=== PATIENT | female | born 1955 | race Caucasian/White ===

== ENCOUNTER 2018-01-12 12:37 | Outpatient (REF) | payer MEDICAID, SELFPAY ==
--- NOTE | 2018-01-12 11:45 | SKI_PTH ---
PATIENT: Brielle Mcduffie LOC: [facility] U#:[id number] AGE/SX: 62/F ROOM: RE01/12/[address]: Nathalia Blair MD : [id number] BED: DIS: 01/12/2018 SPEC #: [id number] RECD: 01/12/18 12:57 STATUS: TATUM REAnisha #: [id number] BIANCA: 01/12/18 11:[address]: Nathalia Blair DEPT: Surgical Specimen RECD BY: Iqra Gann ENTERED: 01/12/18 12:58 SP TYPE: LUIS F YANG DR: Stefany Moreno Tissues: 1 - SKIN BIOPSY(SHAVE/PUNCH) Procedures: SKIN LEVEL 4 Comments: [id number]
== END 2018-01-12 12:57 ==
LOC: LBN 12:37
PROVIDERS: PCP Physician Assistant Medical; Visit Provider Surgery
DX: L82.1 Other seborrheic keratosis (principal); Z85.828 Personal history of other malignant neoplasm of skin
CPT/HCPCS: 88305

== ENCOUNTER 2018-08-27 12:35 | Outpatient (REF) | payer MEDICAID, SELFPAY ==
[2018-08-27 21:45] LABS: Abs Immature Grans 0.02 k/cumm (0.0-0.09); Absolute Basophil Count 0.05 k/cumm (0.0-0.2); Absolute Eosinophil Count 0.17 k/cumm (0.0-0.7); Absolute Lymphocyte Count 2.13 k/cumm (1.2-3.4); Absolute Monocyte Count 0.44 k/cumm (0.11-0.7); Absolute Neutrophil Count 4.85 k/cumm (1.2-6.7); Basophils % 0.7; Eosinophils % 2.2; HCT 41.3 % (36.0-46.0); HGB 13.7 g/dL (12.0-15.5); Immature Grans % 0.3; Lymphocytes % 27.8; Mean Corp. HGB Concentration 33.2 g/dL (32.0-36.0); Mean Corpuscular Hemoglobin 31.2 pg (27.0-33.0); Mean Corpuscular Volume 94.1 fL (80-95); Mean Platelet Volume 10.3 fL (8.0-11.0); Monocytes % 5.7; Neutrophils % 63.3; Platelet Count 277 x1000/uL (130-400); RBC 4.39 m/cumm (4.00-5.20); RBC Distribution Width 12.6 % (11.7-14.6); White Blood Cell Count 7.66 k/cumm (4.4-10.8)
[2018-08-27 21:52] LABS: ALT 18 U/L (12-78); AST 12 U/L (15-37); Albumin 4.7 g/dL (3.4-5.0); Alkaline Phosphatase 62 U/L (46-116); Anion Gap 11.4 mmol/L (3-11); BUN 12 mg/dL (7-18); Bilirubin, Total 0.2 mg/dL (0.2-1.0); CO2 27.6 mmol/L (21.0-32.0); CREATININE 0.61 mg/dL (0.55-1.02); Calcium 9.9 mg/dL (8.5-10.1); Chloride 105 mmol/L (98-107); Glucose 90 mg/dL (70-100); Potassium 4.3 mmol/L (3.5-5.1); Sodium 144 mmol/L (136-145); Total Protein 7.6 g/dL (6.4-8.2)
[2018-08-29 11:28] LABS: Lyme Ab w Rflx to Lyme Confirm Negative
[2018-08-30 00:53] LABS: Anaplasma phagocytophilum Negative (Negative); B. miyamotoi PCR Negative (Negative); Babesia divergens/MO-1 Negative (Negative); Babesia duncani Negative (Negative); Babesia microti Negative (Negative); Ehrlichia chaffeensis Negative (Negative); Ehrlichia ewingii/canis Negative (Negative); Ehrlichia muris eauclairensis Negative (Negative)
[2018-08-30 06:54] LABS: Vitamin D 25 Total 21.9 ng/ml (30-100)
== END 2018-08-27 12:55 ==
LOC: NCHCN 12:35
PROVIDERS: PCP Physician Assistant Medical; Visit Provider Physician Assistant Medical
DX: G89.4 Chronic pain syndrome (principal); E55.9 Vitamin D deficiency, unspecified
CPT/HCPCS: 80053; 82306; 87798; 85025; 86618

== ENCOUNTER 2018-09-24 07:50 | Outpatient (CLI) | payer MEDICAID, SELFPAY ==
[2018-09-24 09:14] LABS: Iron 109 ug/dL (50-175); Total Iron Binding Capacity 328 ug/dL (250-450); Transferrin Sat 33 % (15-50)
[2018-09-24 09:42] LABS: Vitamin D 25 Total 21.4 ng/ml (30-100)
[2018-09-24 09:43] LABS: Ferritin 164 ng/mL (8-388); Folate 13.1 ng/mL (8.6-20.0); Magnesium 2.2 mg/dL (1.8-2.4); TSH 0.75 uIU/mL (0.36-3.74); Vitamin B12 324 pg/mL (193-986)
== END 2018-09-24 08:10 ==
PROVIDERS: PCP Physician Assistant Medical; Visit Provider Physical Medicine & Rehabilitation
DX: M79.10 Myalgia, unspecified site (principal); R53.83 Other fatigue; E61.1 Iron deficiency; E55.9 Vitamin D deficiency, unspecified; G47.9 Sleep disorder, unspecified; M89.9 Disorder of bone, unspecified
CPT/HCPCS: 36415; 82306; 82607; 82728; 82746; 83540; 83550; 83735; 84443

== ENCOUNTER 2018-11-01 09:05 | Outpatient (CLI) | payer MEDICAID, SELFPAY ==
[2018-11-01 10:40] LABS: Vitamin D 25 Total 30.5 ng/ml (30-100)
== END 2018-11-01 09:25 ==
PROVIDERS: PCP Physician Assistant Medical; Visit Provider Physical Medicine & Rehabilitation
DX: E55.9 Vitamin D deficiency, unspecified (principal); M89.9 Disorder of bone, unspecified
CPT/HCPCS: 36415; 82306

== ENCOUNTER 2019-04-26 15:10 | Outpatient (REF) | payer MEDICAID, SELFPAY ==
[2019-04-26 19:01] LABS: Abs Immature Grans 0.03 k/cumm (0.0-0.09); Absolute Basophil Count 0.02 k/cumm (0.0-0.2); Absolute Eosinophil Count 0.06 k/cumm (0.0-0.7); Absolute Monocyte Count 0.71 k/cumm (0.11-0.7); Absolute Neutrophil Count 7.76 k/cumm (1.2-6.7); Basophils % 0.2; Eosinophils % 0.6; HCT 43.9 % (36.0-46.0); HGB 14.5 g/dL (12.0-15.5); Immature Grans % 0.3 %; Lymphocytes % 18.9; Mean Corpuscular Volume 90.9 fL (80-95); Mean Platelet Volume 10.3 fL (8.0-11.0); Monocytes % 6.7; Neutrophils % 73.3; Platelet Count 340 x1000/uL (130-400); RBC 4.83 m/cumm (4.00-5.20); RBC Distribution Width 12.6 % (11.7-14.6); White Blood Cell Count 10.58 k/cumm (4.4-10.8)
[2019-04-26 19:23] LABS: ALT 16 U/L (14-59); AST 16 U/L (15-37); Albumin 4.4 g/dL (3.4-5.0); Alkaline Phosphatase 58 U/L (46-116); Amylase 89 U/L (25-115); Anion Gap 11.3 mmol/L (3-11); BUN 11 mg/dL (7-18); Bilirubin, Total 0.4 mg/dL (0.2-1.0); CO2 25.7 mmol/L (21.0-32.0); CREATININE 0.75 mg/dL (0.55-1.02); Calcium 9.3 mg/dL (8.5-10.1); Chloride 104 mmol/L (98-107); Glucose 103 mg/dL (74-106); Lipase 429 U/L (73-393); Potassium 3.9 mmol/L (3.5-5.1); Sodium 141 mmol/L (136-145); Total Protein 7.1 g/dL (6.4-8.2)
== END 2019-04-26 15:30 ==
LOC: NCHCN 15:10
PROVIDERS: PCP Physician Assistant Medical; Visit Provider Physician Assistant Medical
DX: R10.9 Unspecified abdominal pain (principal)
CPT/HCPCS: 80053; 83690; 82150; 85025

== ENCOUNTER 2019-04-29 00:42 | Outpatient (CLI) | payer MEDICAID, SELFPAY ==
--- NOTE | 2019-04-29 | DI.US_ITS ---
TECHNIQUE: Ultrasound abdomen performed using standard protocol. COMPARISON: MRI - LUMBAR SPINE WO CONTRAST from 08/10/2012 FINDINGS: LIVER: Normal. Hepatopedal flow in the Portal Vein. GALLBLADDER: No evidence of cholelithiasis. No evidence of wall thickening. No pericholecystic fluid identified. KIDNEYS: Kidneys are symmetric in size. No evidence of renal calculi. No evidence of hydronephrosis. 1.5 x 1.8 x 1.4 cm stable simple left renal cyst. This was present on the MRI of the lumbar spine fr om 08/10/2012. BILIARY SYSTEM: Common bile duct measures 2 mm. No intrahepatic biliary ductal dilation. FOSS'S SIGN: Negative. PANCREAS: Normal where visualized. SPLEEN: Not enlarged. ABDOMINAL AORTA AND IVC: Visualized portions normal caliber. ASCITES: None seen. IMPRESSION: Normal sonographic appearance of the upper abdomen. DATA REPOSITORY:
== END 2019-04-29 01:02 ==
PROVIDERS: PCP Physician Assistant Medical; Visit Provider Physician Assistant Medical
DX: N28.1 Cyst of kidney, acquired (principal); R10.9 Unspecified abdominal pain
CPT/HCPCS: 76700

== ENCOUNTER 2019-05-17 19:13 | Outpatient (REF) | payer MEDICAID, SELFPAY ==
[2019-05-17 18:51] LABS: Amylase 54 U/L (25-115); Lipase 130 U/L (73-393)
== END 2019-05-17 19:33 ==
LOC: NCHCN 19:13
PROVIDERS: PCP Physician Assistant Medical; Visit Provider Physician Assistant Medical
DX: R74.8 Abnormal levels of other serum enzymes (principal)
CPT/HCPCS: 83690; 82150

== ENCOUNTER 2019-08-07 21:20 | Outpatient (REF) | payer MEDICAID, SELFPAY ==
[2019-08-07 20:09] LABS: TSH (W/Ref FT4) 1.03 uIU/mL (0.36-3.74)
== END 2019-08-07 21:40 ==
LOC: NCHCN 21:20
PROVIDERS: PCP Physician Assistant Medical; Visit Provider Physician Assistant Medical
DX: N95.1 Menopausal and female climacteric states (principal)
CPT/HCPCS: 84443

== ENCOUNTER 2019-10-04 15:50 | Outpatient (REF) | payer MEDICAID, SELFPAY ==
[2019-10-08 06:55] LABS: SARS-CoV-2 RNA Undetected (Undetected); SARS-CoV-2 Specimen Source Nasopharynx
== END 2019-10-04 16:10 ==
LOC: NCHCN 15:50
PROVIDERS: PCP Physician Assistant Medical; Visit Provider Nurse Practitioner Family
DX: Z20.828 Contact with and (suspected) exposure to other viral communicable diseases (principal)
CPT/HCPCS: U0003

== ENCOUNTER 2019-10-11 12:25 | Outpatient (REF) | payer MEDICAID, SELFPAY ==
[2019-10-11 19:22] LABS: Calculated LDL 134 mg/dL (<100); Cholesterol 260 mg/dL (<200); HDL Cholesterol 109 mg/dL (40-60); Lipase 83 U/L (73-393); Triglyceride 89 mg/dL (<150)
[2019-10-11 19:31] LABS: Amylase 38 U/L (25-115)
== END 2019-10-11 12:45 ==
LOC: NCHCN 12:25
PROVIDERS: PCP Physician Assistant Medical; Visit Provider Physician Assistant Medical
DX: R07.9 Chest pain, unspecified (principal); Z13.220 Encounter for screening for lipoid disorders
CPT/HCPCS: 80061; 83690; 82150

== ENCOUNTER 2019-12-09 13:10 | Outpatient (REF) | payer MEDICAID, SELFPAY ==
[2019-12-09 19:18] LABS: Abs Immature Grans 0.02 10^3/uL (0.0-0.06); Absolute Basophil Count 0.03 10^3/uL (0.0-0.2); Absolute Eosinophil Count 0.15 10^3/uL (0.0-0.7); Absolute Lymphocyte Count 2.16 10^3/uL (1.2-3.4); Absolute Monocyte Count 0.55 10^3/uL (0.1-0.8); Absolute Neutrophil Count 5.16 10^3/uL (1.2-6.7); Basophils % 0.4; Eosinophils % 1.9; HCT 41.1 % (36.0-46.0); HGB 13.5 g/dL (11.2-15.7); Immature Grans % 0.2; Lymphocytes % 26.8; MCH 31.4 pg (27.0-33.0); MCHC 32.8 % (32.0-36.0); MCV 95.6 fL (80-95); MPV 10.7 fL (8.0-11.0); Monocytes % 6.8; Neutrophils % 63.9; Nucleated RBC 0 %; Platelet Count 314 10^3/uL (130-400); RDW-SD 42.1 fL; WBC 8.07 10^3/uL (4.4-10.8)
[2019-12-09 19:32] LABS: ALT 17 U/L (14-59); AST 15 U/L (15-37); Albumin 4.4 g/dL (3.4-5.0); Alkaline Phosphatase 59 U/L (46-116); Amylase 47 U/L (25-115); Anion Gap 8.7 mmol/L (3-11); BUN 11 mg/dL (7-18); Bilirubin, Total 0.2 mg/dL (0.2-1.0); CO2 26.3 mmol/L (21.0-32.0); CREATININE 0.67 mg/dL (0.55-1.02); Calcium 9.2 mg/dL (8.5-10.1); Chloride 103 mmol/L (98-107); Glucose 86 mg/dL (74-106); Lipase 126 U/L (73-393); Potassium 4.2 mmol/L (3.5-5.1); Sodium 138 mmol/L (136-145); Total Protein 7.3 g/dL (6.4-8.2)
== END 2019-12-09 13:30 ==
LOC: NCHCN 13:10
PROVIDERS: PCP Physician Assistant Medical; Visit Provider Physician Assistant Medical
DX: R10.9 Unspecified abdominal pain (principal)
CPT/HCPCS: 80053; 83690; 82150; 85025

== ENCOUNTER 2019-12-12 01:14 | Outpatient (CLI) | payer MEDICAID, SELFPAY ==
--- NOTE | 2019-12-12 12:03 | DI.CT_ITS ---
EXAM: CT ABDOMEN PELVIS W INDICATION: ABD PAIN, R10.9. COMPARISON: No exams were available for comparison TECHNIQUE: FINDINGS: CT examination of the abdomen and pelvis was performed with a bolus infusion of 100 cc of Omnipaque 3 50. Images obtained through the lung bases are unremarkable. The liver is unremarkable in appearance except for a tiny right lobe cyst. Gallbladder and bile ducts are CT normal. Pancreas appears normal. Spleen is unremarkable in appearance. Adrenals appear normal. The kidneys are unremarkable with no evidence of hydronephrosis, nephrolithiasis, or renal mass excep t for an incidental left cyst.. Urinary bladder unremarkable. Abdominal aorta is of normal diameter and no major vascular abnormality is seen. No abdominal wall hernia. No abdominal or pelvic adenopathy. PEST TECHNICIAN structures appear intact. Appendix is not specifically visualized but there is no evidence of appendicitis.. No evidence of di verticulitis or bowel obstruction. IMPRESSION: Negative CT examination of the abdomen and pelvis. RADIATION DOSE DELIVERED: 641.72mGy.cm Total DLP 641.72mGy.cm Total DLP
[2019-12-12] MEDS: Omnipaque 350 MG/ML 100 ML BTL IJ (12:10)
[2019-12-12] MEDS: Normal Saline - Diluent 50 ML VIAL IV (12:10)
== END 2019-12-12 01:34 ==
PROVIDERS: PCP Physician Assistant Medical; Visit Provider Physician Assistant Medical
DX: R10.9 Unspecified abdominal pain (principal)
CPT/HCPCS: 74177; J3490

== ENCOUNTER 2020-01-30 10:15 | Emergency (ER) | payer MEDICAID, SELFPAY ==
[2020-01-30] VITALS (16 sets, daily range): BP systolic 86–168; BP diastolic 46–86; PULSE 72–86; RESP 1–20; TEMP 36.4–37.1; O2SAT 93–100
--- NOTE | 2020-01-30 10:15 | RT.EKG_ITS ---
APPROVED REPORT Exam: Resting ECG Patient Location: E HR:70 bpm ECG Measurements Heart Rate 70 AXIS PA 141 P 72 QRSd 105 QRS 93 QT 395 T 16 QTc 427 Conclusion Sinus rhythm...normal P axis, V-rate 60- 99 Right axis deviation...QRS axis ( 91,269) Physician: Rate 70, intervals normal, sinus rhythm, no significant ST elevation or depressions, no de lta wave, no evidence of STEMI
--- NOTE | 2020-01-30 10:34 | DI.CT_ITS ---
EXAM: CT CHEST PE CTA CLINICAL HISTORY: sob, cough, eval PE vs covid. TECHNIQUE: Imaging Protocol: CT angiography of the chest was performed using pulmonary embolus rigoberto col. Multi planar reconstructions were performed. CONTRAST MATERIAL: Intravenous: Omnipaque 350 Contrast volume: 100 cc COMPARISON: CT CT ABDOMEN PELVIS W from 12/12/2019 FINDINGS: CHEST: PULMONARY ARTERIES: There are no intraluminal filling defects to suggest acute pulmonary emboli. LUNGS: There are no infiltrates nor evidence of pulmonary infarction.. There are no pleural effusion s. MEDIASTINUM: There is no hilar nor mediastinal adenopathy. CARDIAC: Heart size is normal. There is no pericardial effusion.Caliber of the thoracic aorta is wit hin normal limits. There is no evidence of shift of the interventricular septum. OSSEOUS: No significant osseous lesions.. PARTIALLY VISUALIZED UPPERMOST ABDOMEN: Small nodule left adrenal gland probably incidental adenoma. Right adrenal gland unremarkable. Lower most image of this study includes part of the pancreas ther e is possible suggestion of a abnormality in the pancreatic head region is not possible to assess on this study. IMPRESSION: 1. No evidence of acute pulmonary emboli. No evidence of pulmonary infarction.No pleural effusions. 2. No intrathoracic adenopathy. No concerning pulmonary nodules. 3. Possible pancreatic head abnormality is only partially included in the field of view. Recommend f ollow-up starting with ultrasound of the pancreas. 4. Small 1 centimeter nodule left adrenal gland which is probably an incidental adenoma. RADIATION DOSE DELIVERED: 263.37mGy.cm Total DLP DATA REPOSITORY: All CT scans at this facility are submitted to the National Radiology Data Registry (NRDR) Dose Index Registry (DIR) with the [employer] (ACR). RADIATION OPTIMIZATION: All CT scans at this facility use at least one of these dose optimization te chniques: automated exposure control; mA and/or kV adjustment per patient size (includes targeted exa ms where dose is matched to clinical indication); or iterative reconstruction.
[2020-01-30 10:45] LABS: Lactate 1.5 mmol/L (0.6-1.4)
[2020-01-30 10:53] LABS: Abs Immature Grans 0.04 10^3/uL (0.0-0.06); Absolute Basophil Count 0.06 10^3/uL (0.0-0.2); Absolute Lymphocyte Count 1.65 10^3/uL (1.2-3.4); Absolute Monocyte Count 0.64 10^3/uL (0.1-0.8); Absolute Neutrophil Count 8.86 10^3/uL (1.2-6.7); Basophils % 0.5; Eosinophils % 3.4; HCT 43.8 % (36.0-46.0); HGB 14.2 g/dL (11.2-15.7); Immature Grans % 0.3; Lymphocytes % 14.2; MCHC 32.4 % (32.0-36.0); MCV 95.6 fL (80-95); MPV 10.1 fL (8.0-11.0); Monocytes % 5.5; Neutrophils % 76.1; Nucleated RBC 0 %; Platelet Count 332 10^3/uL (130-400); RBC 4.58 10^6/uL (3.93-5.22); RDW 12.5 % (11.7-14.6); RDW-SD 44.2 fL; WBC 11.64 10^3/uL (4.4-10.8)
[2020-01-30] MEDS: Normal Saline 500 ML IV (10:54)
--- NOTE | 2020-01-30 11:03 | ED.GENADUL_ITS ---
Discharge Plan Disposition Patient Disposition: HOME Condition: Good Discharge Details Clinical Impression: Asthma exacerbation, SOB (shortness of breath) Primary Care Provider: Stefany Moreno ED Provider: Duong Zamora Home Meds and New Rx's Prescriptions: New ipratropium-albuterol 0.5 mg-3 mg(2.5 mg base)/3 mL solution for nebulization 3 ml IH Q6H Qty: 90 RF: 0 prednisone 50 MG tablet 50 mg PO DAILY Qty: 5 RF: 0 Continued albuterol sulfate 2.5 mg /3 mL (0.083 %) solution for nebulization 1.25 mg IH Q4H PRNRF: 0 cholecalciferol (vitamin D3) 1,000 unit capsule 2,000 unit PO DAILY RF: 0 Spiriva with HandiHaler 18 mcg capsule, w/inhalation device 1 cap IH DAILY RF: 0 magnesium 250 mg tablet 250 mg PO DAILY RF: 0 Narcan 4 mg/actuation spray,non-aerosol 1 spray ANNAMARIA ONCE PRNRF: 0 Calcium PO DAILY RF: 0 ZOLOFT 100 MG tablet 2 tab PO DAILY RF: 0 VALIUM 5 MG tablet 5 mg PO HS Qty: 30 RF: 0 trazodone 50 MG tablet 100 mg PO DAILY RF: 0 hydrocodone-acetaminophen [Bellaire] 1 EACH tablet 1 ea PO DAILY Qty: 4 RF: 0 alprazolam 1 mg tablet 0.5 - 1 mg PO BID PRNRF: 0 docusate sodium [Colace] 100 mg Capsule 100 mg PO BID RF: 0 Discharge Instructions Instructions: Asthma (ED) Additional Instructions: At this time your serial heart markers were normal, your lung and oxygen levels have all stayed stable and within excellent parameters. Your imaging shows no signs of blood clots pneumonia or other abnormalities. Your influenza test is negative. It will take 2 to 3 days for your Covid test to return. Please contact the hospital if you have not been contacted by us by then. At this time your symptoms are consistent with an asthma exacerbation. Please take the nebulizer treatments every 4-6 hours for the next 2 to 3 days as needed. Please take them 50 mg of prednisone daily starting tomorrow for the next 5 days. Continue to use your pulse oximeter, if you notice that the number becomes less than 91% for an extended period of time please contact the ER and/or return immediately. If you notice any worsening of your symptoms, or any new symptoms such as vomiting, diarrhea, fever, chills, shortness of breath, chest pain, numbness, weakness, or fainting , please return immediately to the emergency department for reevaluation. Please follow up with your primary care provider as soon as possible for reassessment and reevaluation. As always, it was a pleasure participating in your medical care today. Referrals: Stefany Moreno PA [Primary Care Provider] - Medical Decision Making 64-year-old female with fibromyalgia, reactive airway disease, distant history of tobacco abuse who currently vapes, presents today for evaluation of shortness of breath. Patient states for the last two or 3 days she has felt slightly more short of breath, she has been taking her Spiriva inhalers as directed, and has taken some additional puffs, initially these were helping however last night she woke up extremely short of breath, and has continued through to this morning. Her symptoms now are not relieved by her inhaler. She denies any new exposures to smoke, or atypical inhalants. She denies any fever, chills, chest pain, tearing or ripping sensation, chest heaviness, chest tightness. She does state that she just feels like she cannot get a deep breath at all. She denies any pleuritic chest pain in particular though. She denies any history of cardiac disease. She denies any exogenous estrogen, recent long trips or surgeries or procedures. She denies any knowledge of potential exposure to Covid or any travel. No other complaints at this time. No other modifying factors. Physical exam is notably unremarkable, no wheezes or rhonchi, no calf tenderness over the patient does have notable subjective shortness of breath and difficulty with inhalation. Lung sounds are slightly diminished throughout, but that the only atypical component. Differential is broad, but includes Covid, PE, COPD exacerbation. We will give three duo nebs, monitor closely, CT imaging to rule out PE, reassess. 3:18 PM Laboratory work-up is returned, notably unremarkable, minimal white count of 11.6 minimal left shift, no bandemia, D-dimer negative, VBG normal, lactate only 1.5, no indication for repeat level, electrolytes normal, initial and subsequent delta troponin both normal, CRP unremarkable, lipase procalcitonin both normal, influenza test normal. CTA shows no evidence of PE, pneumonia, dissection, aneurysm, or atelectasis. There is an incidental left adrenal adenoma, unremarkable otherwise. I did discuss with radiology the described finding of a possible pancreatic head abnormality, but he feels that it is most likely secondary to incomplete visualization by the CAT scan, he thinks it may even be a loop of bowel. Repeat exam shows no pancreatic head tenderness, lipase is normal, albumin normal. Her pain is not in the area at all. No indication for repeat emergent CT scan or emergent ultrasound. Did recommend follow-up on an outpatient basis with her PCP. Patient was given a small dose of anxiolytic, as well as a repeat nebulizer treatment and she felt notably better after this. This time she feels stable and ready to go home. Patient will be given prednisone and DuoNeb prescription for home use. Discussed red flags which return. She has nebulizer at home for use. I have extensively reviewed the treatment plan and discharge instructions with the patient and their family. I have addressed all patient concerns at this time. The patient and family was made aware of what symptoms to monitor for that would warrant a return to the emergency department. Discussed the plan with the patient and family, they demonstrate verbal understanding and agreement with our assessment and plan at this time. Signs and symptoms are clinically inconsistent with SC or acute life-threatening etiology at this time. I did have a long discussion with her recommending cessation of vaping. EKG 10: 32 Rate 70, intervals normal, sinus rhythm, no significant ST elevation or depressions, no delta wave, no evidence of STEMI. FINDINGS: CHEST: PULMONARY ARTERIES: There are no intraluminal filling defects to suggest acute pulmonary emboli. LUNGS: There are no infiltrates nor evidence of pulmonary infarction.. There are no pleural effusions. MEDIASTINUM: There is no hilar nor mediastinal adenopathy. CARDIAC: Heart size is normal. There is no pericardial effusion.Caliber of the thoracic aorta is within normal limits. There is no evidence of shift of the interventricular septum. OSSEOUS: No significant osseous lesions.. PARTIALLY VISUALIZED UPPERMOST ABDOMEN: Small nodule left adrenal gland probably incidental adenoma. Right adrenal gland unremarkable. Lower most image of this study includes part of the pancreas there is possible suggestion of a abnormality in the pancreatic head region is not possible to assess on this study. IMPRESSION: 1. No evidence of acute pulmonary emboli. No evidence of pulmonary infarction.No pleural effusions. 2. No intrathoracic adenopathy. No concerning pulmonary nodules. 3. Possible pancreatic head abnormality is only partially included in the field of view. Recommend follow-up starting with ultrasound of the pancreas. 4. Small 1 centimeter nodule left adrenal gland which is probably an incidental adenoma. HPI General Date/Time Provider Initiated Documentation: 01/30/20 10:18 . HPI Narrative: 64-year-old female with fibromyalgia, reactive airway disease, distant history of tobacco abuse who currently vapes, presents today for evaluation of shortness of breath. Patient states for the last two or 3 days she has felt slightly more short of breath, she has been taking her Spiriva inhalers as directed, and has taken some additional puffs, initially these were helping however last night she woke up extremely short of breath, and has continued through to this morning. Her symptoms now are not relieved by her inhaler. She denies any new exposures to smoke, or atypical inhalants. She denies any fever, chills, chest pain, tearing or ripping sensation, chest heaviness, chest tightness. She does state that she just feels like she cannot get a deep breath at all. She denies any pleuritic chest pain in particular though. She denies any history of cardiac disease. She denies any exogenous estrogen, recent long trips or surgeries or procedures. She denies any knowledge of potential exposure to Covid or any travel. No other complaints at this time. No other modifying factors. Related Data Home Medications Medication Instructions Recorded Confirmed Zoloft 2 tab PO DAILY 10/04/10 01/30/20 Valium 5 mg PO HS #30 11/26/10 01/30/20 Calcium PO DAILY 06/29/11 01/12/18 hydrocodone-acetaminophen [Bellaire] 1 ea PO DAILY #4 03/13/13 01/30/20 trazodone 100 mg PO DAILY tab-cap 03/13/13 01/30/20 albuterol sulfate 1.25 mg IH Q4H PRN 12/12/17 01/30/20 cholecalciferol (vitamin D3) 25 2,000 unit PO DAILY 12/12/17 01/30/20 mcg (1,000 unit) capsule magnesium 250 mg tablet 250 mg PO DAILY 12/12/17 01/30/20 naloxone 4 mg/actuation nasal spray 1 spray ANNAMARIA ONCE PRN 12/12/17 01/30/20 tiotropium bromide 18 mcg capsule 1 cap IH DAILY 12/12/17 01/30/20 with inhalation device alprazolam 0.5 - 1 mg PO BID PRN 01/30/20 01/30/20 docusate sodium [Colace] 100 mg PO BID 01/30/20 01/30/20 ipratropium-albuterol 3 ml IH Q6H #90 ml 01/30/20 prednisone 50 mg PO DAILY #5 tab 01/30/20 Previous Rx's Medication Instructions Recorded ipratropium-albuterol 3 ml IH Q6H #90 ml 01/30/20 prednisone 50 mg PO DAILY #5 tab 01/30/20 Allergies Allergy/AdvReac Type Severity Reaction Status Date / Time cyproheptadine Allergy Mild unknown Verified 01/30/20 10:38 fluoxetine Allergy Mild unknown Verified 01/30/20 10:38 ketorolac Allergy Mild unknown Verified 01/30/20 10:38 morphine [From MS Contin] Allergy Mild unknown Verified 01/30/20 10:38 tramadol Allergy Mild unknown Verified 01/30/20 10:38 No Known Drug Allergies Allergy Unverified 01/30/20 10:38 General Stated Complaint: SOB ENRRIQUE: 2 Review of Systems All systems reviewed & are unremarkable except as noted in HPI and below PFSH Medical History (Updated 01/30/20 @ 15:29 by Duong Zamora DO) Abnormal Pap history Remote history of 20-30yrs ago / Dx ? Tx Paps and HPV negative since then Anorexia Past history no problems for many years Depression Fibromyalgia Hx of squamous cell carcinoma of skin Primary fibromyalgia syndrome PTSD (post-traumatic stress disorder) Surgical History Appendectomy 1978 Bilateral thumb surgeries for arthritis 2013 Biopsy, Soft Tissue (03/13/17) right torso - squamous cell carcinoma in situ, margins negative, but close Ligation of fallopian tube R shoulder rotator cuff 2013 Release bowel adhesions Family History Other Heart disease Social History Smoking/Tobacco Use Status: Former Tobacco Use Smoking risk assessment performed?: Yes Alcohol Intake: never Drug use: Never Substance use type: does not use Exam Narrative Exam Narrative: 1.Const: Well-nourished, Well-developed, appearing stated age 2.Eyes: PERRL, no conjunctival injection, and symmetrical lids. 3.ENT: Atraumatic external nose and ears. Moist MM. Neck: Symmetric, trachea midline, No thyromegaly. 4.CVS: +S1/S2, No murmurs or gallops. Peripheral pulses 2+ and equal in all extremities. Brisk capillary refill in all extremities. 5.RESP: slight diff with respirations Clear to auscultation bilaterally. No wheezes rales or rhonchi 6.GI: Soft, Nontender/Nondistended, No hepatosplenomegaly. No guarding or rebound. 7.MSK: Normocephalic/Atraumatic, Extremities w/o deformity or ttp No cyanosis or clubbing, Normal movement of all extremities, no calf tenderness. 8.Skin: Warm, Dry. No rashes or lesions. 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 Sensation grossly intact, no focal neurologic deficits. 10.Psych: (AAO) x3. Appropriate mood and affect Course Vital Signs Vital signs: Vital Signs Temperature 36.4 C L 01/30/20 10:24 Pulse 80 01/30/20 10:24 Respiratory Rate 14 01/30/20 10:24 Blood Pressure 106/61 01/30/20 10:24 Pulse Oximetry 98 01/30/20 10:24 Temperature 36.4 C L 01/30/20 10:24 Temperature Source Skin 01/30/20 10:24 Pulse 80 01/30/20 10:24 Respiratory Rate 14 01/30/20 10:24 Respiratory Effort Labored 01/30/20 10:24 Blood Pressure 106/61 01/30/20 10:24 Blood Pressure Position Supine 01/30/20 10:24 Pulse Oximetry 98 01/30/20 10:24 Oxygen Delivery Method Room Air 01/30/20 10:24 Oxygen Flow Rate 0 01/30/20 10:24 Pain Level 0 01/30/20 10:24 Lab/Test Results Lab/Test Results: 01/30/20 10:34 Blood Blood Culture - Pending 01/30/20 10:34 Blood Blood Culture - Pending Laboratory Tests Range/Units 01/30/20 01/30/20 10:40 10:40 WBC (4.4-10.8) 10^3/uL 11.64 H RBC (3.93-5.22) 10^6/uL 4.58 Hgb (11.2-15.7) g/dL 14.2 Hct (36.0-46.0) % 43.8 MCV (80-95) fL 95.6 H MCH (27.0-33.0) pg 31.0 MCHC (32.0-36.0) % 32.4 RDW (11.7-14.6) % 12.5 Plt Count (130-400) 10^3/uL 332 MPV (8.0-11.0) fL 10.1 Immature Gran % 0.3 Neutrophils % 76.1 Lymphocytes % 14.2 Monocytes % 5.5 Eosinophils % 3.4 Basophils % 0.5 Nucleated RBC % % 0 Absolute Neutrophils (1.2-6.7) 10^3/uL 8.86 H Absolute Lymphocytes (1.2-3.4) 10^3/uL 1.65 Absolute Monocytes (0.1-0.8) 10^3/uL 0.64 Absolute Eosinophils (0.0-0.7) 10^3/uL 0.40 Absolute Basophils (0.0-0.2) 10^3/uL 0.06 VBG Lactate (0.6-1.4) mmol/L 1.5 H
[2020-01-30] MEDS: Albuterol/Ipratropium 3 ML UPD VIAL 9 ML UPD (11:05)
[2020-01-30 11:11] LABS: C-Reactive Protein 0.09 mg/dL (0.0-0.3); LDH 192 U/L (81-234)
[2020-01-30 11:12] LABS: Troponin I < 0.05 ng/mL (<0.06)
[2020-01-30 11:18] LABS: D-Dimer 200 ng/mlFEU (<500)
[2020-01-30 11:25] LABS: Procalcitonin < 0.1 ng/mL
[2020-01-30 11:35] LABS: Ferritin 160 ng/mL (8-252)
[2020-01-30] MEDS: Acetaminophen 500 MG TAB 1000 MG PO (11:44)
[2020-01-30] MEDS: Ketorolac 30 MG/ML VIAL IVP (11:44)
[2020-01-30 12:08] LABS: ALT 15 U/L (14-59); AST 18 U/L (15-37); Albumin 4.7 g/dL (3.4-5.0); Alkaline Phosphatase 81 U/L (46-116); Anion Gap 11.2 mmol/L (3-11); BUN 14 mg/dL (7-18); Bilirubin, Total 0.4 mg/dL (0.2-1.0); CO2 25.8 mmol/L (21.0-32.0); CREATININE 0.71 mg/dL (0.55-1.02); Calcium 9.5 mg/dL (8.5-10.1); Chloride 103 mmol/L (98-107); Glucose 105 mg/dL (74-106); Potassium 3.6 mmol/L (3.5-5.1); Sodium 140 mmol/L (136-145); Total Protein 8.2 g/dL (6.4-8.2)
[2020-01-30] MEDS: Normal Saline - Diluent 50 ML VIAL IV (12:23)
[2020-01-30] MEDS: Omnipaque 350 MG/ML 100 ML BTL IJ (12:24)
[2020-01-30] MEDS: Normal Saline Flush 10 ML SYR IVP (12:24)
[2020-01-30] MEDS: methylPREDNISolone SUCC 125 MG VIAL IVP (13:36)
[2020-01-30 13:37] LABS: Lipase 73 U/L (73-393)
[2020-01-30 13:47] LABS: BE (Venous) 3 mmol/L (-2-3); HCO3 (Venous) 28 mmol/L (23-28); O2 Sat (Venous) 61 %; TCO2 (Venous) 25 mmol/L (24-29); pCO2 (Venous) 47 mmHg (41-51); pH (Venous) 7.38 (7.31-7.41); pO2 (Venous) 32 mmHg
[2020-01-30 14:09] LABS: Troponin I < 0.05 ng/mL (<0.06)
[2020-01-30] MEDS: LORazepam 2 MG/ML VIAL 0.5 MG IM (14:50)
[2020-01-30] MEDS: Albuterol/Ipratropium 3 ML UPD VIAL UPD (14:51)
--- NOTE | 2020-01-30 14:52 | NUR.NOTE ---
PT COMPLAINING OF DIFFICULTY BREATHING. AMBULATED WITH PORTABLE PULSE OX. O2 INCREASED FROM 95-96 TO 97% ON ROOM AIR WITH AMBULATION. LUNG SOUNDS CLEAR UPON AUSCULTATION. PT EVALUATED BY MD. ADDITIONAL DUONEB GIVEN ALONG WITH 0.5MG IVP ATIVAN. VS STABLE. WILL CONT TO MONITOR.:
[2020-01-31 14:51] LABS: COVID-19 RT-PCR UVMMC Result Negative (Negative)
== END 2020-01-30 15:25 | disposition home or self-care (01) ==
PROVIDERS: Emergency Provider Student in an Organized Health Care Education/Training Program; PCP Physician Assistant Medical
DX: J45.998 Other asthma (principal); Z03.818 Encounter for observation for suspected exposure to other biological agents ruled out; Z87.891 Personal history of nicotine dependence; F17.290 Nicotine dependence, other tobacco product, uncomplicated
CPT/HCPCS: 36410; 36415; 71275; 80053; 82805; 83690; 84145; 87040; 87449; 93005; 94640; 96361; 96372; 96374; 96375; 99285; U0003; 82728; 83605; 83615; 84484; 85025; 85379; 86140; 93010; J1885; J2060; J2930; J3490; J7620

== ENCOUNTER 2020-02-05 07:39 | Emergency (ER) | payer MEDICAID, SELFPAY ==
[2020-02-05] VITALS (13 sets, daily range): BP systolic 130–148; BP diastolic 69–102; PULSE 80–93; RESP 14–20; TEMP 36.6; O2SAT 94–96
--- NOTE | 2020-02-05 07:45 | RT.EKG_ITS ---
APPROVED REPORT Exam: Resting ECG Patient Location: E HR:77 bpm ECG Measurements Heart Rate 77 AXIS MO 138 P 83 QRSd 98 QRS 90 QT 364 T 26 QTc 413 Conclusion Sinus rhythm...normal P axis, V-rate 60- 99 Probable left atrial enlargement...P >50mS, <-0.10mV V1. Slight increase in peaked T waves in anterior leads compared to previous. No STEMI. I have reviewed and interpreted ECG and agree with software generated interpretation.
--- NOTE | 2020-02-05 08:12 | ED.GENADUL_ITS ---
Discharge Plan Disposition Patient Disposition: HOME Condition: Improving Discharge Details Clinical Impression: Chronic shortness of breath, Anxiety, Reactive airway disease, Stress at home Primary Care Provider: Stefany Moreno ED Provider: Lucy Godinez Home Meds and New Rx's Prescriptions: New benzonatate [Tessalon Perles] 100 mg capsule 100 mg PO TID PRN (Reason: cough) Qty: 14 RF: 0 Continued albuterol sulfate 2.5 mg /3 mL (0.083 %) solution for nebulization 1.25 mg IH Q4H PRNRF: 0 cholecalciferol (vitamin D3) 1,000 unit capsule 2,000 unit PO DAILY RF: 0 Spiriva with HandiHaler 18 mcg capsule, w/inhalation device 1 cap IH DAILY RF: 0 magnesium 250 mg tablet 250 mg PO DAILY RF: 0 Narcan 4 mg/actuation spray,non-aerosol 1 spray ANNAMARIA ONCE PRNRF: 0 Calcium PO DAILY RF: 0 ZOLOFT 100 MG tablet 2 tab PO DAILY RF: 0 VALIUM 5 MG tablet 5 mg PO HS Qty: 30 RF: 0 trazodone 50 MG tablet 50 mg PO DAILY RF: 0 hydrocodone-acetaminophen [[place]] 1 EACH tablet 1 ea PO DAILY Qty: 4 RF: 0 alprazolam 1 mg tablet 0.5 - 1 mg PO BID PRNRF: 0 docusate sodium [Colace] 100 mg Capsule 100 mg PO BID RF: 0 ipratropium-albuterol 0.5 mg-3 mg(2.5 mg base)/3 mL solution for nebulization 3 ml IH Q6H Qty: 90 RF: 0 prednisone 50 MG tablet 50 mg PO DAILY Qty: 5 RF: 0 doxycycline hyclate 100 mg Capsule See Rx Instructions .ROUTE .COMPLEX RF: 0 Discharge Instructions Instructions: Reactive Airways Disease (ED), Dyspnea (ED), Anxiety (ED) Additional Instructions: Drink plenty of fluids and get plenty of rest. Take your alprazolam and Valium at home as needed and directed for anxiety and sleep. Take your trazodone at night as needed for sleep. Use your albuterol inhaler as needed and directed for shortness of breath, cough or wheezing. Take the Tessalon Perles as needed and directed for coughing. Follow-up with your primary care doctor in 1 week. Return to the emergency department with any worsening or new concerning sy mptoms. Discharge Data Discharge Physician: Lucy Godinez Medical Decision Making 0810 -- 64-year-old female with a history of anxiety, panic attacks, depression, fibromyalgia and PTSD presents with shortness of breath for the past week and nonproductive cough for the past 2 days. EKG notes a rate of 77, sinus with peaked T waves in anterior leads but no other acute ST T ischemic findings. Her vitals are within normal limits. She is endorsing shortness of breath and speaking in 2-3 word sentences but oxygen saturation is 96% and she does not appear to have labored breathing. She appears significantly anxious. She does have a wheeze in the right lower lobe. Differential diagnosis includes anxiety, panic attack, bronchitis, pneumonia, PE. Will place an IV, bolus IV fluids, screening labs, CT chest, and give a DuoNeb and Ativan and reassess. We will hold on steroids as she only has minimal wheeze and did not like the side effects of steroids. 0925 --Labs and imaging reviewed. White blood cell count 13, slightly elevated compared to previous which I suspect is due to steroids. Negative troponin. CT chest negative. 1000 --patient reassessed and she feels much better and feels good to go home. Advised patient that she can stop taking the doxycycline as it did not appear to be evidence of infection. She has an albuterol inhaler at home. She states she has plenty of alprazolam and Valium at home and she is advised to take this as needed. Discussed that she could have a viral process of starting and she is advised to stop vaping which she states she has done recently. Advised that if she develops any fever or purulent sputum, she can restart taking the doxy cycline. Patient admits she has significant stress at home taking care of her elderly mother and without much help. She feels that this is contributing to her stress and anxiety. Advised to follow up with the primary care doctor for re- evaluation. Usual and customary return precautions given prior to discharge. Medical Records Medical records reviewed: Yes I reviewed the patient's medical records. Imaging Data Radiologic Study: Radiologist's impression: CT CHEST PE CTA CLINICAL HISTORY: sob, wheeze RLL, r/o pneumonia/PE. TECHNIQUE: Imaging Protocol: Axial CT angiography was performed with multi- slice acquisition and multi-planar and/or 3D reconstructions. CONTRAST MATERIAL: Intravenous: Omnipaque 350 Contrast volume:100 mL COMPARISON: CT CT CHEST PE CTA from 01/30/2020 FINDINGS: Pulmonary Arteries: No evidence of filling defect to suggest pulmonary emboli. Tracheobronchial tree: Patent where visualized. Mediastinum and Lanny: No dominant adenopathy or fluid collection. Pulmonary parenchyma: No consolidation or dominant measurable mass. Mild centrilobular emphysematous changes are present in the lungs. Pleura: No effusion or pneumothorax. Heart: The heart is not dilated. No coronary artery calcifications are seen. No pericardial effusion. Aorta: Thoracic aorta non-dilated. Mild atherosclerosis. No evidence of dissection. Upper abdomen: Unremarkable. Bones: Mild degenerative changes. Soft tissues: Unremarkable. IMPRESSION: No evidence of pulmonary embolism, thoracic aortic dissection or aneurysm. Lab Data Lab results reviewed: Yes I reviewed the patient's lab results. Labs: Laboratory Tests Range/Units 02/05/20 02/05/20 02/05/20 08:25 08:25 08:25 WBC (4.4-10.8) 10^3/uL 13.21 H RBC (3.93-5.22) 10^6/uL 4.67 Hgb (11.2-15.7) g/dL 14.5 Hct (36.0-46.0) % 44.0 MCV (80-95) fL 94.2 MCH (27.0-33.0) pg 31.0 MCHC (32.0-36.0) % 33.0 RDW (11.7-14.6) % 12.6 Plt Count (130-400) 10^3/uL 386 MPV (8.0-11.0) fL 9.9 Immature Gran % 0.6 Neutrophils % 68.3 Lymphocytes % 17.4 Monocytes % 6.1 Eosinophils % 6.9 Basophils % 0.7 Nucleated RBC % % 0 Absolute Neutrophils (1.2-6.7) 10^3/uL 9.02 H Absolute Lymphocytes (1.2-3.4) 10^3/uL 2.30 Absolute Monocytes (0.1-0.8) 10^3/uL 0.81 H Absolute Eosinophils (0.0-0.7) 10^3/uL 0.91 H Absolute Basophils (0.0-0.2) 10^3/uL 0.09 PT (9.3-11.0) sec 10.9 INR (0.9-1.1) 1.1 APTT (21.0-27.5) sec 23.5 Sodium (136-145) mmol/L 139 Potassium (3.5-5.1) mmol/L 3.9 Chloride (98-107) mmol/L 104 Carbon Dioxide (21.0-32.0) mmol/L 25.5 Anion Gap (3-11) mmol/L 9.5 BUN (7-18) mg/dL 10 Creatinine (0.55-1.02) mg/dL 0.61 Estimated GFR/1.73 m2 (mL/min/1.73m2) >= 60.00 Glucose (74-106) mg/dL 105 Calcium (8.5-10.1) mg/dL 9.4 Magnesium (1.8-2.4) mg/dL 2.3 Total Bilirubin (0.2-1.0) mg/dL 0.4 AST (15-37) U/L 15 ALT (14-59) U/L 20 Alkaline Phosphatase (46-116) U/L 67 Troponin I (<0.06) ng/mL < 0.05 Total Protein (6.4-8.2) g/dL 7.8 Albumin (3.4-5.0) g/dL 4.5 ECG Data Attestation: I personally reviewed and interpreted this ECG (s) as follows: Interpretation: Rate of 77, sinus, peaked T waves in V3, V4 and V5 which has been seen in previous EKG left side but appears slightly more pronounced. No acute ST elevation or depression. TX 138. QRS 98. QTc 413. HPI General Mode of arrival: ambulatory . Date/Time Provider Initiated Documentation: 02/05/20 08:12 . Limitations to Documentation: no limitations . Information obtained by: patient . HPI Narrative: Patient is a 64-year-old fe male with a history of anxiety, panic attacks, depression, fibromyalgia, PTSD presents for shortness of breath for the past week. Patient was seen here last week for same complaint and had negative work-up including CT chest and was diagnosed with possible reactive airway disease and sent home on prednisone and inhaler. She states she only took a half dose for her last dose of steroids as she did not like the way they made her feel or her mood on them. Patient followed up with her primary care doctor for continued shortness of breath yesterday and was started on doxycycline. She states she feels that Ativan helped her symptoms last week when she was here. She took 2 doses of 0.5 mg Ativan yesterday morning at home with some relief. She takes Valium at nighttime to help her sleep which she took last night. She also took a half tab of Ativan this morning which did not yet help. She feels that she has been very stressed at home taking care of her 94-year-old mother with dementia. She does admit to a nonproductive cough for the past few days but denies any fever, change in appetite, vomiting, diarrhea, recent travel or recent sick contacts. She had a Covid swab on 01/29 which was negative. Related Data Home Medications Medication Instructions Recorded Confirmed Zoloft 2 tab PO DAILY 10/04/10 02/05/20 Valium 5 mg PO HS #30 11/26/10 02/05/20 Calcium PO DAILY 06/29/11 01/12/18 hydrocodone-acetaminophen [[place]] 1 ea PO DAILY #4 03/13/13 02/05/20 trazodone 50 mg PO DAILY tab-cap 03/13/13 01/30/20 albuterol sulfate 1.25 mg IH Q4H PRN 12/12/17 02/05/20 cholecalciferol (vitamin D3) 25 2,000 unit PO DAILY 12/12/17 02/05/20 mcg (1,000 unit) capsule magnesium 250 mg tablet 250 mg PO DAILY 12/12/17 02/05/20 naloxone 4 mg/actuation nasal spray 1 spray ANNAMARIA ONCE PRN 12/12/17 02/05/20 tiotropium bromide 18 mcg capsule 1 cap IH DAILY 12/12/17 02/05/20 with inhalation device alprazolam 0.5 - 1 mg PO BID PRN 01/30/20 02/05/20 docusate sodium [Colace] 100 mg PO BID 01/30/20 02/05/20 ipratropium-albuterol 3 ml IH Q6H #90 ml 01/30/20 02/05/20 prednisone 50 mg PO DAILY #5 tab 01/30/20 benzonatate [Tessalon Perles] 100 mg PO TID PRN #14 cap 02/05/20 doxycycline hyclate See Rx Instructions .ROUTE .COMPLEX 02/05/20 02/05/20 Previous Rx's Medication Instructions Recorded ipratropium-albuterol 3 ml IH Q6H #90 ml 01/30/20 prednisone 50 mg PO DAILY #5 tab 01/30/20 benzonatate [Tessalon Perles] 100 mg PO TID PRN #14 cap 02/05/20 Allergies Allergy/AdvReac Type Severity Reaction Status Date / Time cyproheptadine Allergy Mild unknown Verified 01/30/20 10:38 fluoxetine Allergy Mild unknown Verified 01/30/20 10:38 ketorolac Allergy Mild unknown Verified 01/30/20 10:38 morphine [From MS Contin] Allergy Mild unknown Verified 01/30/20 10:38 tramadol Allergy Mild unknown Verified 01/30/20 10:38 No Known Drug Allergies Allergy Unverified 01/30/20 10:38 General Stated Complaint: SOB ENRRIQUE: 3 Review of Systems All systems reviewed & are unremarkable except as noted in HPI and below Constitutional Constitutional: Reports as per HPI, Denies chills and Denies fever(s) Eyes Eyes: Denies blurry vision ENT Ears, Nose, Mouth, and Throat: Denies dizziness, Denies sore throat and Denies throat swelling Cardiovascular Cardiovascular: Denies chest pain and Reports dyspnea Respiratory Respiratory: Denies cough and Reports dyspnea Gastrointestinal Gastrointestinal: Denies abdominal pain, Denies diarrhea and Denies vomiting Genitourinary Genitourinary: Denies hematuria and Denies dysuria Musculoskeletal Musculoskeletal: Denies back pain and Denies numbness Integumentary/Breasts Skin/Breast: Denies lesions and Denies rash Neurologic Neurologic: Denies dizziness, Denies localized weakness and Denies numbness Allergic/Immunologic Allergic/Immunologic: Denies throat swelling [facility] Medical History (Updated 02/05/20 @ 10:08 by Lucy Godinez DO) Abnormal Pap history Remote history of 20-30yrs ago / Dx ? Tx Paps and HPV negative since then Anorexia Past history no problems for many years Depression Fibromyalgia Hx of squamous cell carcinoma of skin Primary fibromyalgia syndrome PTSD (post-traumatic stress disorder) Surgical History Appendectomy 1978 Bilateral thumb surgeries for arthritis 2013 Biopsy, Soft Tissue (03/13/17) right torso - squamous cell carcinoma in situ, margins negative, but close Ligation of fallopian tube R shoulder rotator cuff 2013 Release bowel adhesions Family History Other Heart disease Social History Smoking/Tobacco Use Status: Former Tobacco Use Smoking risk assessment performed?: Yes Alcohol Intake: never Drug use: Never Substance use type: does not use Exam Const General: cooperative and anxious Orientation: alert, awake and oriented x3 HENMT Head: normal to inspection Face and sinus: normal facial exam Mouth: oral mucosae normal Eyes General: appearance normal, both eyes and all related structures EOM: EOM intact bilaterally Neck Neck: normal visual inspection and No submandibular swelling Lymphatic: no lymphadenopathy noted Chest Chest: normal inspection of the chest and no tenderness Resp Effort & Inspection: normal respiratory effort, able to speak in complete sentences (Speaks in 2-3 word sentences) and no nasal flaring Auscultation: wheezes right lower Cardio Rate: regular rate Rhythm: regular rhythm GI Inspection: normal to inspection Palpation: soft, not firm, not rigid and nontender Auscultation: normal bowel sounds Skin General skin exam: no rashes or lesions noted Neuro General: patient alert, patient awake and patient oriented x3 Cognition: normal cognition Speech: speech normal Motor: muscle tone normal throughout Sensory Exam: no sensory deficits noted Extrem General: normal to inspection, full ROM, capillary refill normal, no calf te nderness bilaterally and no edema Psych Appearance: grossly normal Mental Status: mental status grossly normal Speech and Movement: speech and movement normal Affect: normal affect Course Vital Signs Vital signs: Vital Signs Temperature 97.9 F 02/05/20 07:47 Pulse 93 H 02/05/20 07:47 Respiratory Rate 02/05/20 07:47 Blood Pressure 138/102 H 02/05/20 07:47 Pulse Oximetry 96 02/05/20 07:47 Temperature 97.9 F 02/05/20 07:47 Temperature Source Temporal Artery Scan 02/05/20 07:47 Pulse 93 H 02/05/20 07:47 Respiratory Rate 20 02/05/20 07:47 Respiratory Effort 02/05/20 07:58 Respiratory Depth Normal 02/05/20 07:58 Respiratory Pattern Normal 02/05/20 07:58 Blood Pressure 138/102 H 02/05/20 07:47 Pulse Oximetry 96 02/05/20 07:47 Oxygen Delivery Method Room Air 02/05/20 07:47 Oxygen Flow Rate 0 02/05/20 07:47
[2020-02-05 08:29] LABS: Abs Immature Grans 0.08 10^3/uL (0.0-0.06); Absolute Basophil Count 0.09 10^3/uL (0.0-0.2); Absolute Eosinophil Count 0.91 10^3/uL (0.0-0.7); Basophils % 0.7; Eosinophils % 6.9; HGB 14.5 g/dL (11.2-15.7); Immature Grans % 0.6; Lymphocytes % 17.4; MCV 94.2 fL (80-95); MPV 9.9 fL (8.0-11.0); Monocytes % 6.1; Neutrophils % 68.3; Nucleated RBC 0 %; Platelet Count 386 10^3/uL (130-400); RBC 4.67 10^6/uL (3.93-5.22); RDW 12.6 % (11.7-14.6); RDW-SD 43.6 fL; WBC 13.21 10^3/uL (4.4-10.8)
[2020-02-05 08:30] LABS: Absolute Monocyte Count 0.81 10^3/uL (0.1-0.8); Absolute Neutrophil Count 9.02 10^3/uL (1.2-6.7)
--- NOTE | 2020-02-05 08:30 | DI.CT_ITS ---
EXAM: CT CHEST PE CTA CLINICAL HISTORY: sob, wheeze RLL, r/o pneumonia/PE. TECHNIQUE: Imaging Protocol: Axial CT angiography was performed with multi-slice acquisition and mu lti-planar and/or 3D reconstructions. CONTRAST MATERIAL: Intravenous: Omnipaque 350 Contrast volume:100 mL COMPARISON: CT CT CHEST PE CTA from 01/30/2020 FINDINGS: Pulmonary Arteries: No evidence of filling defect to suggest pulmonary emboli. Tracheobronchial tree: Patent where visualized. Mediastinum and Lanny: No dominant adenopathy or fluid collection. Pulmonary parenchyma: No consolidation or dominant measurable mass. Mild centrilobular emphysematous changes are present in the lungs. Pleura: No effusion or pneumothorax. Heart: The heart is not dilated. No coronary artery calcifications are seen. No pericardial effusion. Aorta: Thoracic aorta non-dilated. Mild atherosclerosis. No evidence of dissection. Upper abdomen: Unremarkable. Bones: Mild degenerative changes. Soft tissues: Unremarkable. IMPRESSION: No evidence of pulmonary embolism, thoracic aortic dissection or aneurysm. Findings were discussed with the emergency department on the date of the examination. RADIATION DOSE DELIVERED: 308.01mGy.cm Total DLP DATA REPOSITORY: All CT scans at this facility are submitted to the National Radiology Data Registry (NRDR) Dose Index Registry (DIR) with the [employer] ([employer]). RADIATION OPTIMIZATION: All CT scans at this facility use at least one of these dose optimization te chniques: automated exposure control; mA and/or kV adjustment per patient size (includes targeted exa ms where dose is matched to clinical indication); or iterative reconstruction.
[2020-02-05 08:42] LABS: INR 1.1 (0.9-1.1); PTT Activated 23.5 sec (21.0-27.5); Prothrombin Time 10.9 sec (9.3-11.0)
[2020-02-05] MEDS: LORazepam 2 MG/ML VIAL 1 MG IVP (08:44)
[2020-02-05] MEDS: Normal Saline 1,000 ML 1000 ML IV (08:46)
[2020-02-05 08:54] LABS: ALT 20 U/L (14-59); AST 15 U/L (15-37); Albumin 4.5 g/dL (3.4-5.0); Alkaline Phosphatase 67 U/L (46-116); Anion Gap 9.5 mmol/L (3-11); BUN 10 mg/dL (7-18); Bilirubin, Total 0.4 mg/dL (0.2-1.0); CO2 25.5 mmol/L (21.0-32.0); CREATININE 0.61 mg/dL (0.55-1.02); Calcium 9.4 mg/dL (8.5-10.1); Chloride 104 mmol/L (98-107); Glucose 105 mg/dL (74-106); Magnesium 2.3 mg/dL (1.8-2.4); Potassium 3.9 mmol/L (3.5-5.1); Sodium 139 mmol/L (136-145); Total Protein 7.8 g/dL (6.4-8.2)
[2020-02-05] MEDS: Omnipaque 350 MG/ML 100 ML BTL IJ (08:56)
[2020-02-05 08:59] LABS: Troponin I < 0.05 ng/mL (<0.06)
[2020-02-05] MEDS: Albuterol/Ipratropium 3 ML UPD VIAL UPD (09:30)
== END 2020-02-05 12:28 | disposition home or self-care (01) ==
PROVIDERS: Emergency Provider Physician Assistant; PCP Physician Assistant Medical
DX: F41.0 Panic disorder [episodic paroxysmal anxiety] (principal); F41.8 Other specified anxiety disorders; J45.909 Unspecified asthma, uncomplicated; Z63.6 Dependent relative needing care at home
CPT/HCPCS: 36415; 71275; 80053; 93005; 94640; 96361; 96374; 99285; 83735; 84484; 85025; 85610; 85730; 93010; J2060; J3490; J7620

== ENCOUNTER 2020-02-06 05:25 | Observation (INO) | payer MEDICAID, SELFPAY ==
[2020-02-06] VITALS (49 sets, daily range): BP systolic 110–151; BP diastolic 63–124; PULSE 76–102; RESP 4–28; TEMP 36.5–37; O2SAT 88–100
--- NOTE | 2020-02-06 05:30 | RT.EKG_ITS ---
APPROVED REPORT Exam: Resting ECG Patient Location: E HR:84 bpm ECG Measurements Heart Rate 84 AXIS OR 139 P 88 QRSd 100 QRS 95 QT 372 T -62 QTc 441 Conclusion Sinus rhythm...normal P axis, V-rate 60- 99 Right atrial enlargement...P>0.25mV 2 lds or<-0.24mV aVR/aVL I have reviewed and interpreted ECG and agree with software generated interpretation.
--- NOTE | 2020-02-06 05:39 | W.ED.GENAD ---
Discharge Plan Disposition Patient Disposition: [facility] INPATIENT Condition: Stable Discharge Details Clinical Impression: COPD exacerbation, Anxiety Primary Care Provider: Stefany Moreno ED Provider: Duong Zamora Home Meds and New Rx's Prescriptions: No Action albuterol sulfate 2.5 mg /3 mL (0.083 %) solution for nebulization 1.25 mg IH Q4H PRNRF: 0 cholecalciferol (vitamin D3) 1,000 unit capsule 2,000 unit PO DAILY RF: 0 Spiriva with HandiHaler 18 mcg capsule, w/inhalation device 1 cap IH DAILY RF: 0 magnesium 250 mg tablet 250 mg PO DAILY RF: 0 Narcan 4 mg/actuation spray,non-aerosol 1 spray ANNAMARIA ONCE PRNRF: 0 ZOLOFT 100 MG tablet 2 tab PO DAILY RF: 0 VALIUM 5 MG tablet 5 mg PO HS Qty: 30 RF: 0 trazodone 50 MG tablet 50 mg PO DAILY RF: 0 hydrocodone-acetaminophen [[place]in[place]] 1 EACH tablet 1 ea PO DAILY Qty: 4 RF: 0 alprazolam 1 mg tablet 0.5 - 1 mg PO BID PRNRF: 0 docusate sodium [Colace] 100 mg Capsule 100 mg PO BID RF: 0 ipratropium-albuterol 0.5 mg-3 mg(2.5 mg base)/3 mL solution for nebulization 3 ml IH Q6H Qty: 90 RF: 0 benzonatate [Tessalon Perles] 100 mg capsule 100 mg PO TID PRN (Reason: cough) Qty: 14 RF: 0 Medical Decision Making 64-year-old female with a past medical history of fibromyalgia, anxiety, reactive airway disease, presents today for shortness of breath. This is the patient's third visit in 6 days. On her first visit she was seen and assessed by myself where at that time she had negative serial troponins and EKGs, negative CT angiogram, she did have mild reactive airway disease at that time which improved with nebulizer treatments. No pneumonia. Her lowest oxygen SPO2 was 96%. Ambulatory pulse ox at that time was also 96%. She was discharged home with 5 days of prednisone and continued albuterol nebulizer treatments at home. 2 days ago she was started on doxycycline by her PCP without new imaging, at that time there was concern for potential pneumonia. Yesterday she returned again to the ED for continued shortness of breath. At that time she again had negative troponins, EKGs, CT angiogram. No evidence of pneumonia. Recommended to stop taking doxycycline. She was given benzodiazepines and breathing treatments and had notable improvement of her symptoms. Oxygenation remained above 94%, she was discharged home. She returns again this evening for shortness of breath. She states that at 3 AM she again felt notably short of breath. She did take 1 Valium out of concern for anxiety, and she did have a breathing treatment earlier in the evening, neither of which helped her symptoms. She admits to notable shortness of breath and feels that she cannot get any oxygen in. She states that she has not been vaping since her first visit. She denies any chest pain, chest heaviness. She denies any fever or chills. She denies any travel. She denies any weakness in any of her extremities. No other complaints or modifying factors at this time. Physical exam demonstrates mild wheezes in the bases, notably diminished inspiratory effort, the patient is only speaking in 1-2 word sentences, she does appear like she is struggling to breathe however she shows no intercostal retractions or subclavicular retractions at all. Her breathing effort seems to be labored but also minimal at the same time. Oxygenation is 92 to 93% on room air, we did do an ambulatory pulse ox upon her arrival and she actually goes from 93 to 94% while ambulating. With the patient's 2 CTAs, the most recent being less than 24 hours ago, I see no indication for repeat CTA. EKG is unchanged and unremarkable, no evidence of STEMI. At this time I do feel that the patient continues to have mild reactive airway disease, but I feel that there is a notable underlying component which may be related to a nonphysical etiology, which I feel is compounding her sensation of difficulty breathing. At this time she shows no signs of acute respiratory failure at all, and demonstrates notably intact and adequate oxygenation. However with her multiple visits and her continued concern, we will get a repeat chest x-ray basic labs and cardiac assessment. I will give duo nebs and an additional dose of Solu-Medrol at this time. I do feel with her repeated visits that she may benefit from admission, repeat pulmonary function testing, continued pulmonary toilet by respiratory therapy, and potential mental health evaluation for an additional/complicating component of anxiety which seems to be notably worsening her symptomatology. Additionally at this time her symptoms appearing consistent with an atypical central etiology, as she demonstrates no other weakness, or signs of neurologic diminishment or deficit. 7:13 AM Patient's laboratory work-up demonstrated improving white count which I suspect is only elevated secondary to the steroids. VBG does show mild increase in PCO2 at 56, however pH is stable. Electrolytes and renal function normal, troponin normal, EKG unremarkable and unchanged, proBNP normal showing no signs of heart strain. Chest x-ray negative for infiltrate, questionable mild bronchitis however CT angio was unremarkable 24 hours ago. Patient O2 saturations remain at 92 to 93% after breathing treatments, however the patient continues to have the same subjective difficulty breathing. She still feels short of breath and is only able to speak in 2-3 word sentences. Respiration rate is normal though. I do feel that there is a psychosomatic component to her current symptoms in conjunction with her asthma. I do feel that she would benefit from admission, and the aforementioned therapies. Will contact hospitalist for further evaluation. Additionally of thought there could be a component of some sort of reactive mold/at her home that causes these episodes that we no longer see when she comes here. I am uncertain of this though. 7:41 AM Discussed the case with Dr. Zuñiga, she agrees with assessment and plan. She would like an ABG prior to admission to determine placement. She has requested a rapid Covid screen. She stated that she will place admission orders. I have extensively reviewed the treatment plan with the patient. I have addressed all patient concerns at this time. I have also discussed the plan with the admitting physician and they agree with the current assessment and plan and have agreed to assume responsibility for the patient. All parties demonstrate verbal understanding and agreement with our assessment and plan at this time. FINDINGS: Lungs: Mild interstitial prominence/peribronchial thickening No consolidation. Pleural space: No pleural effusion. No pneumothorax. Heart/Mediastinum: No cardiomegaly. Bones/joints: Unremarkable. IMPRESSION: Question mild bronchitis/interstitial pneumonitis/edema No focal consolidation observed Thank you for allowing us to participate in the care of your patient. Dictated and Authenticated by: Elmo Rosas MD 02/06/2020 6:37 AM Eastern Time ([place] & [place]) HPI General Date/Time Provider Initiated Documentation: 02/06/20 05:29. HPI Narrative: 64-year-old female with a past medical history of fibromyalgia, anxiety, reactive airway disease, presents today for shortness of breath. This is the patient's third visit in 6 days. On her first visit she was seen and assessed by myself where at that time she had negative serial troponins and EKGs, negative CT angiogram, she did have mild reactive airway disease at that time which improved with nebulizer treatments. No pneumonia. Her lowest oxygen SPO2 was 96%. Ambulatory pulse ox at that time was also 96%. She was discharged home with 5 days of prednisone and continued albuterol nebulizer treatments at home. 2 days ago she was started on doxycycline by her PCP without new imaging, at that time there was concern for potential pneumonia. Yesterday she returned again to the ED for continued shortness of breath. At that time she again had negative troponins, EKGs, CT angiogram. No evidence of pneumonia. Recommended to stop taking doxycycline. She was given benzodiazepines and breathing treatments and had notable improvement of her symptoms. Oxygenation remained above 94%, she was discharged home. She returns again this evening for shortness of breath. She states that at 3 AM she again felt notably short of breath. She did take 1 Valium out of concern for anxiety, and she did have a breathing treatment earlier in the evening, neither of which helped her symptoms. She admits to notable shortness of breath and feels that she cannot get any oxygen in. She states that she has not been vaping since her first visit. She denies any chest pain, chest heaviness. She denies any fever or chills. She denies any travel. She denies any weakness in any of her extremities. No other complaints or modifying factors at this time. Related Data Home Medications Medication Instructions Recorded Confirmed Zoloft 2 tab PO DAILY 10/04/10 02/06/20 Valium 5 mg PO HS #30 11/26/10 02/06/20 hydrocodone-acetaminophen [[place]ineston] 1 ea PO DAILY #4 03/13/13 02/06/20 trazodone 50 mg PO DAILY tab-cap 03/13/13 02/06/20 albuterol sulfate 1.25 mg IH Q4H PRN 12/12/17 02/06/20 cholecalciferol (vitamin D3) 25 2,000 unit PO DAILY 12/12/17 02/06/20 mcg (1,000 unit) capsule magnesium 250 mg tablet 250 mg PO DAILY 12/12/17 02/06/20 naloxone 4 mg/actuation nasal spray 1 spray ANNAMARIA ONCE PRN 12/12/17 02/06/20 tiotropium bromide 18 mcg capsule 1 cap IH DAILY 12/12/17 02/06/20 with inhalation device alprazolam 0.5 - 1 mg PO BID PRN 01/30/20 02/06/20 docusate sodium [Colace] 100 mg PO BID 01/30/20 02/06/20 ipratropium-albuterol 3 ml IH Q6H #90 ml 01/30/20 02/06/20 benzonatate [Tessalon Perles] 100 mg PO TID PRN #14 cap 02/05/20 02/06/20 Previous Rx's Medication Instructions Recorded ipratropium-albuterol 3 ml IH Q6H #90 ml 01/30/20 benzonatate [Tessalon Perles] 100 mg PO TID PRN #14 cap 02/05/20 Allergies Allergy/AdvReac Type Severity Reaction Status Date / Time cyproheptadine Allergy Mild unknown Verified 02/06/20 05:38 fluoxetine Allergy Mild unknown Verified 02/06/20 05:38 ketorolac Allergy Mild unknown Verified 02/06/20 05:38 morphine [From MS Contin] Allergy Mild unknown Verified 02/06/20 05:38 tramadol Allergy Mild unknown Verified 02/06/20 05:38 General Stated Complaint: SOB ENRRIQUE: 2 Review of Systems All systems reviewed & are unremarkable except as noted in HPI and below PFSH Medical History (Updated 02/06/20 @ 07:43 by Duong Zamora DO) Abnormal Pap history Remote history of 20-30yrs ago / Dx ? Tx Paps and HPV negative since then Anorexia Past history no problems for many years Depression Fibromyalgia Hx of squamous cell carcinoma of skin Primary fibromyalgia syndrome PTSD (post-traumatic stress disorder) Surgical History Appendectomy 1978 Bilateral thumb surgeries for arthritis 2013 Biopsy, Soft Tissue (03/13/17) right torso - squamous cell carcinoma in situ, margins negative, but close Ligation of fallopian tube R shoulder rotator cuff 2012 Release bowel adhesions Family History Other Heart disease Social History Smoking/Tobacco Use Status: Former Tobacco Use Smoking risk assessment performed?: Yes Alcohol Intake: never Drug use: Never Substance use type: does not use Do you feel safe at home: Yes Exam Narrative Exam Narrative: 1.Const: Well-nourished, Well-developed, appearing stated age 2.Eyes: PERRL, no conjunctival injection, and symmetrical lids. 3.ENT: Atraumatic external nose and ears. Moist MM. Neck: Symmetric, trachea midline, No thyromegaly. 4.CVS: +S1/S2, No murmurs or gallops. Peripheral pulses 2+ and equal in all extremities. Brisk capillary refill in all extremities. 5.RESP: Notably labored respiratory effort with diminished inspiratory effort, however no intercostal retractions or subclavicular retractions. She does demonstrate mild wheezes, but this appears to be minimal. No rhonchi or rales. She speaks in 1-2 word sentences max. 6.GI: Soft, Nontender/Nondistended, No hepatosplenomegaly. No guarding or rebound. 7.MSK: Normocephalic/Atraumatic, Extremities w/o deformity or ttp No cyanosis or clubbing, Normal movement of all extremities 8.Skin: Warm, Dry. No rashes or lesions. 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 Sensation grossly intact, no focal neurologic deficits. 10.Psych: (AAO) x3. Notably worried mood Course Vital Signs Vital signs: Vital Signs Temperature 36.5 C 02/06/20 05:32 Pulse 88 02/06/20 05:32 Respiratory Rate 24 02/06/20 05:32 Pulse Oximetry 92 02/06/20 05:32 Temperature 36.5 C 02/06/20 05:32 Temperature Source Skin 02/06/20 05:32 Pulse 88 02/06/20 05:32 Respiratory Rate 24 02/06/20 05:32 Blood Pressure Position Sitting 02/06/20 05:32 Pulse Oximetry 92 02/06/20 05:32 Oxygen Delivery Method Room Air 02/06/20 05:32 Oxygen Flow Rate 0 02/06/20 05:32
[2020-02-06] MEDS: Albuterol/Ipratropium 3 ML UPD VIAL 9 ML UPD (05:57)
[2020-02-06] MEDS: methylPREDNISolone SUCC 125 MG VIAL IVP (06:12)
[2020-02-06] MEDS: Ondansetron 4 MG/2 ML VIAL IVP (06:13)
[2020-02-06 06:22] LABS: Abs Immature Grans 0.08 10^3/uL (0.0-0.06); Absolute Basophil Count 0.05 10^3/uL (0.0-0.2); Absolute Eosinophil Count 0.84 10^3/uL (0.0-0.7); Absolute Monocyte Count 0.66 10^3/uL (0.1-0.8); BE (Venous) 3 mmol/L (-2-3); Basophils % 0.4; Eosinophils % 7.3; HCO3 (Venous) 29 mmol/L (23-28); HCT 45.6 % (36.0-46.0); HGB 14.8 g/dL (11.2-15.7); Immature Grans % 0.7; Lymphocytes % 15.6; MCH 31.2 pg (27.0-33.0); MCHC 32.5 % (32.0-36.0); MCV 96.2 fL (80-95); MPV 9.9 fL (8.0-11.0); Monocytes % 5.7; Neutrophils % 70.3; Nucleated RBC 0 %; O2 Sat (Venous) 66 %; Platelet Count 307 10^3/uL (130-400); RBC 4.74 10^6/uL (3.93-5.22); RDW 12.4 % (11.7-14.6); RDW-SD 43.9 fL; TCO2 (Venous) 26 mmol/L (24-29); WBC 11.52 10^3/uL (4.4-10.8); pCO2 (Venous) 56 mmHg (41-51); pH (Venous) 7.32 (7.31-7.41); pO2 (Venous) 38 mmHg
--- NOTE | 2020-02-06 06:28 | DI.RAD_ITS ---
EXAM: XR PORTABLE CHEST AP CLINICAL HISTORY: sob TECHNIQUE: 2D digital imaging was performed. COMPARISON: CR CHEST 2 VIEWS PA,LAT from 11/16/2015 FINDINGS: MEDIASTINUM: Normal. HEART: Normal. PULMONARY VASCULATURE: Normal. LUNGS: Mild increased interstitial markings particularly in the right lung base. No focal consolidat ing infiltrate. PLEURAL SPACE: No pleural effusion or pneumothorax. BONE:Within normal limits for the patient's age. OTHER FINDINGS:Normal. IMPRESSION: Mild interstitial process in the right lung base. Pneumonia cannot be excluded. Please correlate cl inically. DATA REPOSITORY: RADIATION DOSE DELIVERED:
--- NOTE | 2020-02-06 06:37 | DI.VRAD_ITS ---
PROCEDURE INFORMATION: Exam: XR Chest, 1 View Exam date and time: 02/06/2020 5:37 AM Age: 64 years old Clinical indication: Shortness of breath TECHNIQUE: Imaging protocol: XR of the chest Views: 1 view. COMPARISON: CT CHEST PE CTA 02/05/2020 9:00 AM FINDINGS: Lungs: Mild interstitial prominence/peribronchial thickening No consolidation. Pleural space: No pleural effusion. No pneumothorax. Heart/Mediastinum: No cardiomegaly. Bones/joints: Unremarkable. IMPRESSION: Question mild bronchitis/interstitial pneumonitis/edema No focal consolidation observed Dictated and Authenticated by: Elmo Rosas MD. Ordering:SONJA Watters MD
[2020-02-06 06:46] LABS: ALT 20 U/L (14-59); AST 17 U/L (15-37); Albumin 4.4 g/dL (3.4-5.0); Alkaline Phosphatase 67 U/L (46-116); Anion Gap 9.5 mmol/L (3-11); BUN 12 mg/dL (7-18); Bilirubin, Total 0.5 mg/dL (0.2-1.0); CO2 27.5 mmol/L (21.0-32.0); CREATININE 0.73 mg/dL (0.55-1.02); Chloride 103 mmol/L (98-107); Glucose 128 mg/dL (74-106); NT-proBNP 179 pg/mL (<300); Sodium 140 mmol/L (136-145); Troponin I 0.05 ng/mL (<0.06)
[2020-02-06 07:57] LABS: Source Nasopharynx
[2020-02-06 08:24] LABS: BE 1 mmol/L (-2-3); HCO3 26 mmol/L (22-26); pCO2 43 mmHg (35-45); pH 7.39 (7.35-7.45); pO2 64 mmHg (80-105); sO2 92 % (95-98); tCO2 23 mmol/L (23-27)
[2020-02-06 08:27] LABS: FIO2 21 %; FIO2L RA L; Site Right Radial
[2020-02-06 09:04] LABS: COVID-19 PCR Negative (Negative); Influenza A PCR Negative (Negative); Influenza B PCR Negative (Negative); RSV PCR Negative (Negative)
[2020-02-06] MEDS: HYDROcodone 5/Acetaminophen 325 TAB PO (09:35)
[2020-02-06 09:59] LABS: C-Reactive Protein 0.37 mg/dL (0.0-0.3)
[2020-02-06 10:19] LABS: Procalcitonin < 0.1 ng/mL
--- NOTE | 2020-02-06 11:20 | W.PM.HP.N ---
Date of service: 02/06/20 Time of Service: 10:30 Assessment and Plan Assessment and plan (1) Right lower lobe pneumonia: Status: Acute Assessment and plan: With hypoxemia, which is trending in the wrong direction. For this reason, admitted to the ICU. I will review the images with [facility] [place] to see if they agree that this is pneumonia (also concern for vaping-related illness and COVID-19. If looks like bacterial PNA to them, we can discontinue airborne precautions for COVID-19 (PUI for now). Location suggests possible aspiration, which with history of GERD is certainly a possibility. Treat with doxycycline, zosyn, steroids. (2) Asthma exacerbation: Status: Acute Assessment and plan: As above Treat with nebs, steroids, abx. Could be triggered by reflux as well - treat GERD with PPI. Could be triggered by allergies - start zyrtec. (3) COPD exacerbation: Status: Acute Assessment and plan: As above (4) Anxiety: Status: Chronic Assessment and plan: The patient does describe stressors in her life and admits to having panic attacks in the past, though not in a long time. Will continue treatment with benzodiazepines prn. (5) GERD (gastroesophageal reflux disease): Status: Chronic Assessment and plan: Start on PPI. (6) Environmental allergies: Status: Acute Assessment and plan: Start on zyrtec (7) DVT prophylaxis: Status: Acute Assessment and plan: SC lovenox, TEDs, SCDs (8) Discharge planning issues: Status: Acute Assessment and plan: Full code Admit to the ICU. Critical Care Time 1 hr. History of Present Illness History of Present Illness Chief Complaint: shortness of breath, dry cough, anxiety Narrative: Ms Mcduffie is a 64 year old female with PMHx of asthma/COPD, not on oxygen and not steroid-dependent, as well as h/o vaping until a few days ago, Anxiety with panic attacks in the past, and depression, who also feels she might have allergies to cats and mold, who presented to [facility] ED this morning for the 3rd time in 8 days, complaining of shortness of breath and having visible anxiety. She was seen in our ED on 01/30/2020 for shortness of breath, was felt to have an asthma/COPD exacerbation, and was sent home on prednisone, which she finished taking early. 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 The patient then followed up with her PCP 2 days ago, who initiated her on doxycycline for what was felt to be developing pneumonia because the patient started having a new dry cough. The patient returned to the ED yesterday with shortness of breath and was felt to be very anxious. She was prescribed tessalon perles and was told to take xanax/valium for her anxiety symptoms and was discharged home. Her workup yesterday included a negative CTA of the chest. Despite this, the patient woke up feeling extremely short of breath overnight, stating that all she could get out was 1-2 word phrases and had her family take her to the ED. Here, she was found to be tachypneic and short of breath, but not to have retractions. Her O2 sats were 91-92% at rest, going up to 94% with ambulation. Her CXR is showing a nonspecific mild interestitial process in the right lung base. The patient endorses having had symptoms of heartburn and allergies (itchy eyes, runny nose). Denies exposure to or sx of COVID-19 (fever/chills, sore throat, changes to taste/smell, nausea, diarrhea). She again tested negative for COVID-19 in the ED today. Her ABG shows preserved pH and pCO2. She is hypoxemic with PO2 of 64 on room air. Hospitalists were asked to admit the patient for further care. Review of Systems All systems reviewed & are unremarkable except as noted in HPI and below PFSH Medical History Abnormal Pap history Remote history of 20-30yrs ago / Dx ? Tx Paps and HPV negative since then Anorexia Past history no problems for many years Anxiety Chronic pain Depression Fibromyalgia Hx of squamous cell carcinoma of skin Primary fibromyalgia syndrome PTSD (post-traumatic stress disorder) Stress at home Surgical History (Updated 02/06/20 @ 11:52 by Alena Zuñiga MD) Appendectomy 1978 Bilateral thumb surgeries for arthritis 2012 Biopsy, Soft Tissue (03/13/17) right torso - squamous cell carcinoma in situ, margins negative, but close H/O abdominal surgery multiple abdominal surgeries to fixed a nicked bowel Ligation of fallopian tube R shoulder rotator cuff 2012 Release bowel adhesions Family History (Updated 02/06/20 @ 11:52 by Alena Zuñiga MD) Mother Hypertension Other Heart disease Social History (Updated 02/06/20 @ 11:53 by Alena Zuñiga MD) Smoking/Tobacco Use Status: Former Tobacco Use Tobacco: How many years used: 25 Smoking risk assessment performed?: Yes Alcohol Intake: never Drug use: Never Substance use type: does not use Do you feel safe at home: Yes Meds Home Medications and Allergies Home Medications Medication Instructions Recorded Confirmed Type Valium 5 mg PO HS #30 11/26/10 02/06/20 History trazodone 50 mg PO DAILY tab-cap 03/13/13 02/06/20 History albuterol sulfate 1.25 mg IH Q4H PRN 12/12/17 02/06/20 History cholecalciferol (vitamin D3) 25 2,000 unit PO DAILY 12/12/17 02/06/20 History mcg (1,000 unit) capsule magnesium 250 mg tablet 250 mg PO DAILY 12/12/17 02/06/20 History naloxone 4 mg/actuation nasal spray 1 spray ANNAMARIA ONCE PRN 12/12/17 02/06/20 History tiotropium bromide 18 mcg capsule 1 cap IH DAILY 12/12/17 02/06/20 History with inhalation device alprazolam 0.5 - 1 mg PO BID PRN 01/30/20 02/06/20 History docusate sodium [Colace] 100 mg PO BID 01/30/20 02/06/20 History ipratropium-albuterol 3 ml IH Q6H #90 ml 01/30/20 02/06/20 Rx benzonatate [Tessalon Perles] 100 mg PO TID PRN #14 cap 02/05/20 02/06/20 Rx hydrocodone-acetaminophen 1 tab PO QID PRN PRN 02/06/20 02/06/20 History sertraline 50 mg PO DAILY 02/06/20 02/06/20 History Allergies Allergy/AdvReac Type Severity Reaction Status Date / Time cyproheptadine Allergy Mild unknown Verified 02/06/20 05:38 fluoxetine Allergy Mild unknown Verified 02/06/20 05:38 ketorolac Allergy Mild unknown Verified 02/06/20 05:38 morphine [From MS Contin] Allergy Mild unknown Verified 02/06/20 05:38 tramadol Allergy Mild unknown Verified 02/06/20 05:38 Exam Narrative Exam Narrative: General: Pleasant middle-aged female who is able to complete a sentences, which is followed by an increased respiratory effort with retractions, A&Ox3 Neurological: A&Ox3, no focal deficits Psychiatric: anxious, gets visibly nervous when talking about taking care of her mother, appropriate speech pattern/content Skin: visible skin intact HEENT: Atraumatic, normocephalic, EOMI, MMM, clear oropharynx with white tongue, no submandibular or cervical lymphadenopathy, no goiter or JVD, not cyanotic Cardiovascular: RRR, no m/r/g Lungs: I am not able to hear much air entry bilaterally Gastrointestinal: soft, nontender, nondistended Genitourinary: pt's urine seen in the commode - clear yellow Extremities: no edema BLEs, no cyanosis. Results Imaging Additional studies: CXR 02/06/2020: Mild interstitial process in the right lung base. Pneumonia cannot be excluded. Please correlate clinically. CTA chest 02/05/2020: No evidence of pulmonary embolism, thoracic aortic dissection or aneurysm. Pulmonary parenchyma: No consolidation or dominant measurable mass. Mild centrilobular emphysematous changes are present in the lungs. Labs Result diagrams: 02/06/20 06:10 02/06/20 06:10 Labs: Laboratory Results - last 24 hr 02/06/20 02/06/20 02/06/20 06:10 06:10 06:10 WBC 11.52 H RBC 4.74 Hgb 14.8 Hct 45.6 MCV 96.2 H MCH 31.2 MCHC 32.5 RDW 12.4 Plt Count 307 MPV 9.9 Immature Gran % 0.7 Neutrophils % 70.3 Lymphocytes % 15.6 Monocytes % 5.7 Eosinophils % 7.3 Basophils % 0.4 Nucleated RBC % 0 Absolute Neutrophils 8.10 H Absolute Lymphocytes 1.80 Absolute Monocytes 0.66 Absolute Eosinophils 0.84 H Absolute Basophils 0.05 ABG Sample Site ABG pH ABG pCO2 ABG pO2 ABG HCO3 ABG Total CO2 ABG O2 Saturation ABG Base Excess VBG pH 7.32 VBG pCO2 56 H VBG pO2 38 VBG HCO3 29 H VBG Total CO2 26 VBG O2 Saturation 66 VBG Base Excess 3 Oxygen Liter Flow FiO2 Sodium 140 Potassium 4.0 Chloride 103 Carbon Dioxide 27.5 Anion Gap 9.5 BUN 12 Creatinine 0.73 Estimated GFR/1.73 m2 >= 60.00 Glucose 128 H Calcium 9.0 Total Bilirubin 0.5 AST 17 ALT 20 Alkaline Phosphatase 67 Troponin I 0.05 C-Reactive Protein NT-Pro-B Natriuret Pep 179 Total Protein 8.0 Albumin 4.4 Procalcitonin COVID-19 Source SARS-CoV-2 (PCR) Influenza Type A (PCR) Influenza Type B (PCR) RSV (PCR) 02/06/20 02/06/20 02/06/20 06:10 06:10 07:45 WBC RBC Hgb Hct MCV MCH MCHC RDW Plt Count MPV Immature Gran % Neutrophils % Lymphocytes % Monocytes % Eosinophils % Basophils % Nucleated RBC % Absolute Neutrophils Absolute Lymphocytes Absolute Monocytes Absolute Eosinophils Absolute Basophils ABG Sample Site ABG pH ABG pCO2 ABG pO2 ABG HCO3 ABG Total CO2 ABG O2 Saturation ABG Base Excess VBG pH VBG pCO2 VBG pO2 VBG HCO3 VBG Total CO2 VBG O2 Saturation VBG Base Excess Oxygen Liter Flow FiO2 Sodium Potassium Chloride Carbon Dioxide Anion Gap BUN Creatinine Estimated GFR/1.73 m2 Glucose Calcium Total Bilirubin AST ALT Alkaline Phosphatase Troponin I C-Reactive Protein 0.37 H NT-Pro-B Natriuret Pep Total Protein Albumin Procalcitonin < 0.1 COVID-19 Source Nasopharynx SARS-CoV-2 (PCR) Negative Influenza Type A (PCR) Negative Influenza Type B (PCR) Negative RSV (PCR) Negative 02/06/20 08:25 WBC RBC Hgb Hct MCV MCH MCHC RDW Plt Count MPV Immature Gran % Neutrophils % Lymphocytes % Monocytes % Eosinophils % Basophils % Nucleated RBC % Absolute Neutrophils Absolute Lymphocytes Absolute Monocytes Absolute Eosinophils Absolute Basophils ABG Sample Site Right radial ABG pH 7.39 ABG pCO2 43 ABG pO2 64 L ABG HCO3 26 ABG Total CO2 23 ABG O2 Saturation 92 L ABG Base Excess 1 VBG pH VBG pCO2 VBG pO2 VBG HCO3 VBG Total CO2 VBG O2 Saturation VBG Base Excess Oxygen Liter Flow Ra FiO2 21 Sodium Potassium Chloride Carbon Dioxide Anion Gap BUN Creatinine Estimated GFR/1.73 m2 Glucose Calcium Total Bilirubin AST ALT Alkaline Phosphatase Troponin I C-Reactive Protein NT-Pro-B Natriuret Pep Total Protein Albumin Procalcitonin COVID-19 Source SARS-CoV-2 (PCR) Influenza Type A (PCR) Influenza Type B (PCR) RSV (PCR) Last Vital Signs Temp 36.5 C 02/06/20 05:32 Pulse 89 02/06/20 10:01 Resp 19 02/06/20 10:18 BP 133/79 02/06/20 10:01 Pulse Ox 93 02/06/20 10:01 COVID-19 Screening Have you, or household traveled for leisure in last 14 days?: No Had IN PERSON contact w/suspected or confirmed C-19 person: No
[2020-02-06] MEDS: ALPRAZolam 0.5 MG TAB PO ×2 (11:37→16:20)
[2020-02-06] MEDS: Pantoprazole 40 MG VIAL IVP (11:37)
[2020-02-06] MEDS: methylPREDNISolone SUCC 125 MG VIAL 60 MG IVP ×3 (11:37→23:43)
[2020-02-06] MEDS: Enoxaparin 40 MG/0.4 ML SYR SC (11:37)
[2020-02-06] MEDS: Albuterol/Ipratropium 3 ML UPD VIAL UPD ×3 (11:38→23:43)
[2020-02-06] MEDS: Sertraline 50 MG TAB PO (11:39)
[2020-02-06] MEDS: HYDROcodone 10/Acetaminophen 325 TAB PO ×2 (14:12→20:45)
[2020-02-06] MEDS: DOXYCYCLINE 100 MG in Normal Saline 100 ML IVPB (14:13)
[2020-02-06] MEDS: Benzonatate 100 MG CAP PO ×2 (16:52→22:20)
[2020-02-06] MEDS: Docusate Sodium 100 MG CAP PO (19:46)
[2020-02-06] MEDS: diazePAM 5 MG TAB PO (20:35)
[2020-02-06] MEDS: traZODone 50 MG TAB PO (22:21)
[2020-02-06] MEDS: Normal Saline 1,000 ML 100 ML IV (22:21)
[2020-02-06] MEDS: Senna TAB 1 TAB (22:34)
[2020-02-07] VITALS (11 sets, daily range): BP systolic 110–144; BP diastolic 66–83; PULSE 64–93; RESP 1–24; TEMP 36.2–37.4; O2SAT 93–97
[2020-02-07] MEDS: methylPREDNISolone SUCC 125 MG VIAL 60 MG IVP (05:44)
[2020-02-07] MEDS: Albuterol/Ipratropium 3 ML UPD VIAL UPD ×3 (05:45→17:13)
[2020-02-07 07:32] LABS: BUN 11 mg/dL (7-18); C-Reactive Protein 0.22 mg/dL (0.0-0.3); CREATININE 0.64 mg/dL (0.55-1.02); Calcium 9.3 mg/dL (8.5-10.1); Chloride 105 mmol/L (98-107); Glucose 166 mg/dL (74-106); Magnesium 2.2 mg/dL (1.8-2.4); Sodium 138 mmol/L (136-145)
[2020-02-07] MEDS: Cholecalciferol (Vitamin D3) 1,000 UNIT TAB 2000 UNITS PO (07:45)
[2020-02-07] MEDS: Ascorbic Acid 500 MG TAB PO (07:46)
[2020-02-07] MEDS: Sertraline 50 MG TAB PO (07:46)
[2020-02-07] MEDS: Docusate Sodium 100 MG CAP PO (07:46)
[2020-02-07] MEDS: Cetirizine 10 MG TAB PO (07:46)
[2020-02-07] MEDS: Magnesium Gluconate 500 MG TAB 250 MG PO (07:47)
[2020-02-07] MEDS: Normal Saline 1,000 ML 100 ML IV (09:00)
--- NOTE | 2020-02-07 10:05 | INITIAL_ITS ---
- If Service Date Differs Date of service: 02/07/20 Time of Service: 10:06 Care Management Initial Assess REASON FOR HOSPITALIZATION:: RLL Pneumonia PAST MEDICAL HISTORY/PAST SURGICAL HISTORY:: Medical History. Abnormal Pap history. Remote history of 20-30yrs ago / Dx ? Tx Paps and HPV negative since then. Anorexia. Past history no problems for many years. Anxiety. Chronic pain. Depression. Fibromyalgia. Hx of squamous cell carcinoma of skin. P rimary fibromyalgia syndrome. PTSD (post-traumatic stress disorder). Stress at home. Surgical History (Updated 02/06/20 @ 11:52 by Alena Zuñiga MD). Appendectomy. 1977. Bilateral thumb surgeries for arthritis. 2012. Biopsy, Soft Tissue (03/13/17). right torso - squamous cell carcinoma in situ, margins negative, but close. H/O abdominal surgery. multiple abdominal surgeries to fixed a nicked bowel. Ligation of fallopian tube. R shoulder rotator cuff. 2012. Release bowel adhesions PREVIOUS FUNCTIONAL STATUS/SOCIAL/FAMILY SUPPORTS:: Brielle lives in a single family home in [place]. Her 94 year old mother moved in with her in April when the [place] emerged. She has dementia and has been getting more forgetful over tme. Brielle is independent at baseline. She has 3 sons and one grandchild. One of her sons lives out of [facility], one in the [place] area and the 3rd is local. The family is very close and supportive. Brielle also has a sister in [place] that she is close to. CURRENT FUNCTIONAL STATUS:: Brielle was sitting on the side of the bed when CM met with her. She was pleasant and engaged readly in conversation. Brielle shared some of her challenges caring for her 94 year old mother who has dementia. Brielle has been provding all of her care without assistance. Brielle's sister helps occasionally but she is caring for their elderly aunt who lives next door to her, so has limited availability.Brielle shared that she expects to be discharged later today. ADVANCE DIRECTIVES:: None on file. Given forms at her request. Has patient been provided with info about the portal/API?: Yes Did the patient sign up for the portal?: No CODE STATUS:: Full Code INSURANCE COVERAGE / FINANCIAL ISSUES:: Medicaid CURRENT HOME/COMMUNITY SERVICES/EQUIPMENT:: none PRIMARY CARE PHYSICIAN:: Stefany Moreno POTENTIAL DISCHARGE NEEDS:: follow up with PCP and discharge plan PATIENT/FAMILY EDUCATION NEEDS:: Discharge plan, limitations, follow up plan. Ask Me Three TRANSPORTATION:: via private vehicle with family PLAN:: Brielel will likely be discharged home later today. She will follow up with her PCP and discharge plan of care and transport with family.
[2020-02-07] MEDS: Enoxaparin 40 MG/0.4 ML SYR SC (10:31)
[2020-02-07] MEDS: HYDROcodone 10/Acetaminophen 325 TAB PO ×2 (10:31→16:44)
[2020-02-07] MEDS: Pantoprazole 40 MG VIAL IVP (10:32)
--- NOTE | 2020-02-07 11:31 | CHAPLAIN ---
Brielle was sitting up on the edge of her bed when I visited. She is worried about being away from home, where she takes care of her 93 year old mother with dementia. Her sister is with their mom now. Brielle has three sons and a granddaughter. It sounds like she doesn't have much time for herself to relax as her mom is constant car. She is aware that being stressed my contribute to her health issues. We talked about her trying to carve some time out for herself. Brielle's father about a year and a half ago, and her mom continues to express sadness about his and Brielle misses him as well. One of Brielle's sons has Jessica Olivera for mother in law. Jessica is a lay leader in the [employer] and has led congregations before.
[2020-02-07] MEDS: Benzonatate 100 MG CAP PO (14:54)
[2020-02-07] MEDS: ALPRAZolam 0.5 MG TAB PO (14:54)
--- NOTE | 2020-02-07 14:58 | W.PM.DS.N ---
Date of service: 02/07/20 Time of Service: 15:06 DS: Diagnosis Discharge Diagnosis (1) Acute bronchitis: Status: Acute (2) Asthma exacerbation: Status: Acute (3) COPD exacerbation: Status: Acute (4) Panic attack as reaction to stress: Status: Resolved (5) Anxiety: Status: Chronic (6) GERD (gastroesophageal reflux disease): Status: Chronic (7) Environmental allergies: Status: Acute (8) COVID-19 ruled out by laboratory testing: Status: Ruled-out (9) Right lower lobe pneumonia: Status: Ruled-out Asessment and Plan: Per [facility] [place], there is no parenchymal disease in RLL on this admission. (10) History of nicotine vaping: Status: Acute Discharge Plan Disposition Patient Disposition: HOME Condition: Stable Discharge Details Reason For Visit: ACUTE EXACERBATION OF COPD/ASTHMA, HYPOXIA Admit Date/Time: 02/06/20 09:17 Admit Provider: Alena Zuñiga Attending Provider: Alena Zuñiga Primary Care Provider: Stefany Moreno Hospital Course Hospital Course: Ms Mcduffie is a 64 year old female with PMHx of asthma, emphysema as well as GERD, suspected environmental allergies and anxiety, who was observed on [facility] hospitalist service form 02/06/2020 until 02/07/2020 for an acute asthma/COPD exacerbation and a panic attack. Acute bacterial disease as well as COVID-19 were ruled out. She was admitted to the ICU however because of evidence of hypoxemia (pO2 of 64 on ABG) and downtrending O2 sats initially. With nebs, systemic steroids, PPI (GERD may have been a trigger), and antihistamine therapy over the next several hours she improved significantly and was transferred out of the ICU on the same day. I did have her images reviewed by [facility] who did not feel the patient had a parenchymal problem and was more likely suffering from a reactive airway issue. Recommendation to repeat imaging in several days was made, however, and will be ordered on discharge. The patient feels ready to be discharged home today with a prednisone taper, PPI, cetirizine and aerosolized therapy. She already has been referred to pulmonology. She is urged not to vape. Care for patient as well as completion of her discharge paperwork took 45 minutes. Home Meds and New Rx's Prescriptions: New albuterol sulfate 2.5 mg /3 mL (0.083 %) Solution For Nebulization 2.5 mg UPD Q2H PRN PRNQty: 75 RF: 0 cetirizine 10 mg Tablet 10 mg PO DAILY Qty: 30 RF: 0 prednisone 20 mg Tablet See Rx Instructions .ROUTE .COMPLEX Qty: 10 RF: 0 pantoprazole [Protonix] 40 mg tablet,delayed release (DR/EC) 40 mg PO DAILY Qty: 30 RF: 0 Continued albuterol sulfate 2.5 mg /3 mL (0.083 %) solution for nebulization 1.25 mg IH Q4H PRNRF: 0 cholecalciferol (vitamin D3) 1,000 unit capsule 2,000 unit PO DAILY RF: 0 Spiriva with HandiHaler 18 mcg capsule, w/inhalation device 1 cap IH DAILY RF: 0 magnesium 250 mg tablet 250 mg PO DAILY RF: 0 Narcan 4 mg/actuation spray,non-aerosol 1 spray ANNAMARIA ONCE PRNRF: 0 VALIUM 5 MG tablet 5 mg PO HS Qty: 30 RF: 0 trazodone 50 MG tablet 50 mg PO DAILY RF: 0 alprazolam 1 mg tablet 0.5 - 1 mg PO BID PRNRF: 0 docusate sodium [Colace] 100 mg Capsule 100 mg PO DAILY RF: 0 ipratropium-albuterol 0.5 mg-3 mg(2.5 mg base)/3 mL solution for nebulization 3 ml IH Q6H Qty: 90 RF: 0 benzonatate [Tessalon Perles] 100 mg capsule 100 mg PO TID PRN (Reason: cough) Qty: 14 RF: 0 hydrocodone-acetaminophen 10-325 mg tablet 1 tab PO QID PRN PRN (Reason: Pain) RF: 0 sertraline 50 mg tablet 50 mg PO DAILY RF: 0 sennosides [senna] 8.6 mg Tablet 8.6 mg PO QHS RF: 0 ascorbic acid (vitamin C) [Vitamin C] 500 mg Tablet 500 mg PO DAILY RF: 0 Discharge Instructions Instructions: Prednisone (By mouth), Cetirizine (By mouth), Pantoprazole (By mouth), Asthma (DC), Diet for Stomach Ulcers and Gastritis (ED), GERD (Gastroesophageal Reflux Disease) (DC), Allergies (ED), Anxiety (DC), Panic Attack (GEN) Additional Instructions: You must stop vaping! Finish your steroid taper as prescribed. Return to the hospital with any fever, bleeding, chest pain, or shortness of breath. Follow a low acid diet and try not to eat at least 2 hours prior to going to bed. Follow up with your PCP in 1-2 weeks. Referrals: Stefany Moreno PA [Primary Care Provider] - Activity:: Activity as Tolerated Equipment/Supplies:: No Equipment Needed Diet:: Low acid Discharge Orders Discharge Orders: Discharge Order (Routine); Ordered 02/07/20 Ordered By: Alena Zuñiga Other Ambulatory Orders: XR chest 2V PA & lateral (Routine) Timeframe: 3 Days Facility: [facility] - Location: DIAGNOSTIC IMAGING Ordered By: Alena Zuñiga DS: Summary Status at Discharge Functional status at discharge: independent ambulation Overall status at discharge: patient is progressing back to baseline Mental Status: mental status grossly normal Speech and Movement: speech and movement normal Mood: congruent mood Affect: normal affect Exam Narrative Exam Narrative: General: Very pleasant middle-aged female, A&Ox3, no shortness of breath; having a dry cough HEENT: EOMI, MMM Heart: RRR, no m/r/g Lungs: no wheezing, but breath sounds are coarse bilaterally Abdomen: soft, nontender, nondistended Extremities: no edema BLE's Psych Mental Status: mental status grossly normal Speech and Movement: speech and movement normal Mood: congruent mood Affect: normal affect DS: Data Vitals/I&O Vitals and I&O: Vital Signs Temperature 37.4 C 02/07/20 12:16 Temperature Source Tympanic 02/07/20 12:16 Pulse 73 02/07/20 12:57 Pulse Rhythm Regular 02/07/20 07:50 Pulse 81 02/06/20 17:00 Respiratory Rate 18 02/07/20 12:57 Respiratory Effort 02/07/20 07:50 Respiratory Depth Normal 02/07/20 07:50 Respiratory Pattern Normal 02/07/20 07:50 Blood Pressure 144/83 H 02/07/20 12:16 Blood Pressure Mean 90 02/06/20 15:30 Blood Pressure Position Sitting 02/06/20 15:30 Pulse Oximetry 94 02/07/20 12:57 Oxygen Delivery Method Room Air 02/07/20 12:57 Oxygen Flow Rate 0 02/07/20 12:57 Pain Level 2 02/07/20 12:16 Intake & Output 02/06/20 02/07/20 02/07/20 23:59 11:59 23:59 Intake Total 710 / 730 1750 / 1989 240 / 1990 Output Total 1375 / 1775 700 / 1400 700 / 1400 Balance -665 / -1045 1050 / 590 -460 / 590 Weight 57.1 kg Intake: IV 110 / 130 1000 / 1000 Oral 600 / 600 750 / 990 240 / 990 Output: Urine 1375 / 1775 700 / 1400 700 / 1400 Other: Urine Color Straw Yellow Straw Urine Appearance Clear Clear Clear Urine Odor Normal Normal Normal Voiding Methods Toilet Toilet Toilet Data Completed and Pending Completed studies during hospitalization [Text1]: CXR: Mild interstitial process in the right lung base. Pneumonia cannot be excluded. Please correlate clinically. (this was reviewed by [facility] who did not feel that there was a parenchymal issue). Labs on day of discharge: Labs from last 24 hours 02/07/20 06:50 Sodium 138 Potassium 4.0 Chloride 105 Carbon Dioxide 24.0 Anion Gap 9.0 BUN 11 Creatinine 0.64 Estimated GFR/1.73 m2 >= 60.00 Glucose 166 H Calcium 9.3 Magnesium 2.2 C-Reactive Protein 0.22 PFSH Medical History Abnormal Pap history Remote history of 20-30yrs ago / Dx ? Tx Paps and HPV negative since then Anorexia Past history no problems for many years Anxiety Chronic pain Depression Fibromyalgia Hx of squamous cell carcinoma of skin Primary fibromyalgia syndrome PTSD (post-traumatic stress disorder) Stress at home Surgical History (Updated 02/06/20 @ 11:52 by Alena Zuñiga MD) Appendectomy 1978 Bilateral thumb surgeries for arthritis 2013 Biopsy, Soft Tissue (03/13/17) right torso - squamous cell carcinoma in situ, margins negative, but close H/O abdominal surgery multiple abdominal surgeries to fixed a nicked bowel Ligation of fallopian tube R shoulder rotator cuff 2013 Release bowel adhesions Family History (Updated 02/06/20 @ 11:52 by Alena Zuñiga MD) Mother Hypertension Other Heart disease Social History (Updated 02/06/20 @ 11:53 by Alena Zuñiga MD) Smoking/Tobacco Use Status: Former Tobacco Use Tobacco: How many years used: 25 Smoking risk assessment performed?: Yes Alcohol Intake: never Drug use: Never Substance use type: does not use Do you feel safe at home: Yes
--- NOTE | 2020-02-07 15:47 | PDOC.CMDIS ---
- If Service Date Differs Date of service: 02/07/20 Time of Service: 15:47 LACE Index Scoring Tool - Questions: Length of Stay (in days): 1 Acuity (Admit via E.D.?): Yes Comorbidities: Any Tumor E.D. Visits: 3 - Answers: Total Score: 9 Risk of Readmission: Low Risk Care Management Discharge Reason for Hospitalization: RLL Pneumonia Discharge Plan: Brielle will likely be discharged home later today wt no new services. She will follow up with her PCP and discharge plan of care and transport with family. Patient/Family Education Needs: Discharge plan, limitations, follow up plan. Ask Me Three
== END 2020-02-07 17:25 | disposition home or self-care (01) ==
LOC: ER 07:43 → ICU 10:12 → MS 17:37
PROVIDERS: Admitting Provider Internal Medicine; Emergency Provider Student in an Organized Health Care Education/Training Program; PCP Physician Assistant Medical; Visit Provider Internal Medicine
DX: J44.0 Chronic obstructive pulmonary disease with (acute) lower respiratory infection (principal); J44.1 Chronic obstructive pulmonary disease with (acute) exacerbation; J20.9 Acute bronchitis, unspecified; F41.9 Anxiety disorder, unspecified; K21.9 Gastro-esophageal reflux disease without esophagitis; M79.7 Fibromyalgia; F32.9 Major depressive disorder, single episode, unspecified; F43.10 Post-traumatic stress disorder, unspecified; Z87.891 Personal history of nicotine dependence
CPT/HCPCS: 36415; 80048; 80053; 82805; 84145; 87637; 93005; 94618; 94640; 96374; 96375; 99217; 99285; 99291; J1650; 36600; 71045; 83735; 83880; 84484; 85025; 86140; 93010; 94667; G0378; J2405; J2930; J3490; J7512; J7613; J7620

== ENCOUNTER 2020-02-19 03:31 | Outpatient (CLI) | payer MEDICAID, SELFPAY ==
--- NOTE | 2020-02-19 13:20 | DI.RAD_ITS ---
EXAM: XR CHEST 2V PA LATERAL CLINICAL HISTORY: follow up possible RLL infiltrate,r06.00,dyspnea. TECHNIQUE: 2D digital imaging was performed. COMPARISON: Chest x-ray 02/06/2020 FINDINGS: Heart size is normal. The mediastinum is not widened. Lungs are presently clear. No infiltrates nor pleural effusions. IMPRESSION: No acute pulmonary findings.Previously described increased markings in the right lung base are not ev ident on the present study. DATA REPOSITORY: RADIATION DOSE DELIVERED:
== END 2020-02-19 03:51 ==
PROVIDERS: PCP Physician Assistant Medical; Visit Provider Physician Assistant Medical
DX: R06.00 Dyspnea, unspecified (principal)
CPT/HCPCS: 71046

== ENCOUNTER 2020-03-03 20:12 | Outpatient (REF) | payer MEDICAID, SELFPAY ==
[2020-03-05 18:21] LABS: COVID-19 RT-PCR Result NEGATIVE (Negative)
== END 2020-03-03 20:32 ==
LOC: NCHCN 20:12
PROVIDERS: PCP Physician Assistant Medical; Visit Provider Nurse Practitioner Family
DX: R05 Cough (principal)
CPT/HCPCS: U0003

== ENCOUNTER 2020-06-19 17:17 | Outpatient (REF) | payer MEDICAID, SELFPAY ==
[2020-06-19 18:53] LABS: Abs Immature Grans 0.03 10^3/uL (0.0-0.06); Absolute Basophil Count 0.07 10^3/uL (0.0-0.2); Absolute Lymphocyte Count 2.99 10^3/uL (1.2-3.4); Absolute Monocyte Count 0.57 10^3/uL (0.1-0.8); Absolute Neutrophil Count 4.11 10^3/uL (1.2-6.7); Basophils % 0.9; Eosinophils % 3.7; HCT 39.1 % (36.0-46.0); HGB 12.9 g/dL (11.2-15.7); Immature Grans % 0.4; Lymphocytes % 37.1; MCH 29.9 pg (27.0-33.0); MCV 90.5 fL (80-95); MPV 9.7 fL (8.0-11.0); Monocytes % 7.1; Neutrophils % 50.8; Nucleated RBC 0 %; Platelet Count 326 10^3/uL (130-400); RBC 4.32 10^6/uL (3.93-5.22); RDW 12.5 % (11.7-14.6); RDW-SD 41.3 fL; WBC 8.07 10^3/uL (4.4-10.8)
[2020-06-19 19:17] LABS: ALT 18 U/L (14-59); AST 14 U/L (15-37); Albumin 4.3 g/dL (3.4-5.0); Alkaline Phosphatase 65 U/L (46-116); Amylase 48 U/L (25-115); Anion Gap 8.9 mmol/L (3-11); BUN 13 mg/dL (7-18); Bilirubin, Total 0.2 mg/dL (0.2-1.0); CO2 27.1 mmol/L (21.0-32.0); CREATININE 0.7 mg/dL (0.55-1.02); Calcium 9.2 mg/dL (8.5-10.1); Chloride 106 mmol/L (98-107); Glucose 101 mg/dL (74-106); Lipase 116 U/L (73-393); Potassium 4.1 mmol/L (3.5-5.1); Sodium 142 mmol/L (136-145); TSH (W/Ref FT4) 1.11 uIU/mL (0.36-3.74)
== END 2020-06-19 17:18 | disposition home or self-care (01) ==
LOC: NCHCN 17:17
PROVIDERS: PCP Physician Assistant Medical; Visit Provider Physician Assistant Medical
DX: R10.10 Upper abdominal pain, unspecified (principal); F41.9 Anxiety disorder, unspecified
CPT/HCPCS: 80053; 83690; 82150; 84443; 85025

== ENCOUNTER 2020-10-21 14:29 | Outpatient (REF) | payer MEDICAID, SELFPAY ==
[2020-10-23 13:13] LABS: Helicobacter pylori Ag, Feces Negative (Negative)
== END 2020-10-21 14:30 | disposition home or self-care (01) ==
LOC: NCHCN 14:29
PROVIDERS: PCP Physician Assistant Medical; Referring Provider Physician Assistant Medical; Visit Provider Physician Assistant Medical
DX: R10.10 Upper abdominal pain, unspecified (principal)
CPT/HCPCS: 87338

== ENCOUNTER 2020-11-17 14:13 | Outpatient (REF) | payer MEDICAID, SELFPAY ==
[2020-11-18 16:29] LABS: COVID-19 RT-PCR UVMMC Result Negative (Negative)
== END 2020-11-17 14:14 | disposition home or self-care (01) ==
LOC: NCHCN 14:13
PROVIDERS: PCP Physician Assistant Medical; Visit Provider Physician Assistant Medical
DX: Z20.822 Contact with and (suspected) exposure to COVID-19 (principal); R05.9 Cough, unspecified
CPT/HCPCS: U0003

== ENCOUNTER 2021-01-18 18:34 | Outpatient (REF) | payer MEDICAID, SELFPAY ==
[2021-01-20 22:13] LABS: COVID-19 RT-PCR UVMMC Result Positive (Negative)
== END 2021-01-18 18:35 | disposition home or self-care (01) ==
LOC: NCHCN 18:34
PROVIDERS: PCP Physician Assistant Medical; Visit Provider Physician Assistant Medical
DX: Z20.822 Contact with and (suspected) exposure to COVID-19 (principal); R05.8 Other specified cough; R06.00 Dyspnea, unspecified
CPT/HCPCS: U0003

== ENCOUNTER 2021-01-22 15:17 | Outpatient (REF) | payer MEDICAID, SELFPAY ==
[2021-01-23 18:09] LABS: COVID-19 RT-PCR UVMMC Result Negative (Negative)
== END 2021-01-22 15:18 | disposition home or self-care (01) ==
LOC: NCHCN 15:17
PROVIDERS: PCP Physician Assistant Medical; Visit Provider Physician Assistant Medical
DX: Z20.822 Contact with and (suspected) exposure to COVID-19 (principal)
CPT/HCPCS: U0003

== ENCOUNTER 2021-07-26 17:12 | Emergency (ER) | payer MEDICAID, SELFPAY ==
[2021-07-26 17:30] VITALS: BP 126/91; PULSE 60; RESP 14; TEMP 36.7; O2SAT 98
--- NOTE | 2021-07-26 18:12 | NUR.NOTE ---
Nursing Note:I spoke with [facility] about the correct administration of Bebtelovimab infusion. He instructed me to let the vial get to room temp, do not shake the vial, administer the medication immediately once drawn up, push over 30 seconds and flush with 10 cc NS after fully administered. Directions verbalized to nurse administering the medication.
[2021-07-26 18:32] VITALS: BP 134/82; PULSE 74; RESP 18; TEMP 37.1; O2SAT 96
--- NOTE | 2021-07-26 18:39 | ED.GENADUL_ITS ---
Discharge Plan Disposition Patient Disposition: HOME Condition: Good Discharge Details Clinical Impression: COVID-19 Primary Care Provider: Stefany Moreno ED Provider: Duong Zamora Home Meds and New Rx's Prescriptions: No Action diazepam 5 mg tablet 5 mg PO TID PRN fluconazole 100 mg tablet 100 mg PO DAILY PRN albuterol sulfate 2.5 mg /3 mL (0.083 %) solution for nebulization 1.25 mg IH Q4H PRN cholecalciferol (vitamin D3) 1,000 unit capsule 2,000 unit PO DAILY Spiriva with HandiHaler 18 mcg capsule, w/inhalation device 1 cap IH DAILY magnesium 250 mg tablet 250 mg PO DAILY naloxone [Narcan] 4 mg/actuation spray,non-aerosol 1 spray ANNAMARIA ONCE PRN trazodone 50 MG tablet 50 mg PO DAILY ibuprofen 600 mg tablet 600 mg PO TID PRN Advair HFA 230-21 mcg/actuation HFA aerosol inhaler 2 puff inhalation BID esomeprazole magnesium 40 mg capsule,delayed release(DR/EC) 40 mg PO DAILY alprazolam 1 mg tablet 0.5 - 1 mg PO BID PRN Label Comments: TK 1/2-1 PO BID PRN docusate sodium [Colace] 100 mg Capsule 100 mg PO DAILY ipratropium-albuterol 0.5 mg-3 mg(2.5 mg base)/3 mL solution for nebulization 3 ml IH Q6H Qty: 90 0RF hydrocodone-acetaminophen 10-325 mg tablet 1 tab PO QID PRN PRN (Reason: Pain) Label Comments: TK 1 T PO QID PRN FOR PAIN sennosides [senna] 8.6 mg Tablet 8.6 mg PO QHS ascorbic acid (vitamin C) [Vitamin C] 500 mg Tablet 500 mg PO DAILY albuterol sulfate 2.5 mg /3 mL (0.083 %) Solution For Nebulization 2.5 mg UPD Q2H PRN PRNQty: 75 0RF cetirizine 10 mg tablet 10 mg PO DAILY PRN Discharge Instructions Instructions: COVID-19 (Coronavirus Disease 2019) (ED) Additional Instructions: Please continue to drink plenty of fluids, you can take outs-awj-ezfpuia loratadine 10 mg every 24 hours to help with the congestion. You can take 1000 mg of Tylenol every 6 hours as needed for pain. Continue to monitor your home oxygen, and if it dips below 90% for greater than 5 minutes please return for reassessment. If you notice any worsening of your symptoms, or any new symptoms such as vomiting, diarrhea, fever, chills, shortness of breath, chest pain, numbness, weakness, or fainting , please return immediately to the emergency department for reevaluation. Please follow up with your primary care provider as soon as possible for reassessment and reevaluation. As always, it was a pleasure participating in your medical care today. Referrals: Stefany Moreno PA [Primary Care Provider] - Medical Decision Making 64-year-old female with a past medical history of asthma, PTSD, fibromyalgia, who who presents today for COVID-19. Patient states that about 4 days ago she had mild runny nose, and some congestion and mild headache. She felt notably fatigued like she had been run over by a truck. She tested herself for COVID but was negative, however when she went to her primary care provider's office today she was positive for COVID at her primary care provider's COVID testing. She otherwise has no other complaints. No chest pain, no chest tightness, no shortness of breath or cough. No fever. No vomiting or diarrhea. She is here to bring her mother, she is also asking for therapeutic options including monoclonal antibody therapy. No other complaints at this time. Physical exam demonstrates a well-appearing female albeit a fatigued 1. She shows no evidence of abnormal lung sounds, vital signs are stable oxygenation is excellent, lungs are clear clear. Patient at this time shows no indication for additional work-up, would be a good candidate for the monoclonal antibody therapy or Macrobid. She is requesting monoclonal antibody therapy. Will administer this here. We discussed the risks and benefits of it, and she would still like to proceed. 7:30 PM Patient has received the therapy, she tolerated this well, she showed no signs of adverse reaction. She will be stable for discharge home. I have extensively reviewed the treatment plan and discharge instructions with the patient. I have addressed all patient concerns at this time. The patient was made aware of what symptoms to monitor for that would warrant a return to the emergency department. Discussed the plan with the patient, they demonstrate verbal understanding and agreement with our assessment and plan at this time. The documentation in this chart was dictated using [employer] dictation software. Please excuse any dictation errors. 9:30 PM Patient was given monoclonal antibody infusion. Patient remains notably stable. Patient tolerated infusion well. No complications. Patient will be discharged home. Discussed red flags which return. I have extensively reviewed the treatment plan and discharge instructions with the patient. I have addressed all patient concerns at this time. The patient was made aware of what symptoms to monitor for that would warrant a return to the emergency department. Discussed the plan with the patient, they demonstrate verbal understanding and agreement with our assessment and plan at this time. The documentation in this chart was dictated using [employer] dictation software. Please excuse any dictation errors. HPI General Date/Time Provider Initiated Documentation: 07/26/21 18:38 . HPI Narrative: 64-year-old female with a past medical history of asthma, PTSD, fibromyalgia, who who presents today for COVID-19. Patient states that about 4 days ago she had mild runny nose, and some congestion and mild headache. She felt notably fatigued like she had been run over by a truck. She tested herself for COVID but was negative, however when she went to her primary care provider's office today she was positive for COVID at her primary care provider's COVID testing. She otherwise has no other complaints. No chest pain, no chest tightness, no shortness of breath or cough. No fever. No vomiting or diarrhea. She is here to bring her mother, she is also asking for therapeutic options including monoclonal antibody therapy. No other complaints at this time. Related Data Home Medications Medication Instructions Recorded Confirmed trazodone 50 mg tablet 50 mg PO DAILY 03/13/13 07/26/21 albuterol sulfate 2.5 mg/3 mL 1.25 mg inhalation Q4H PRN 12/12/17 07/26/21 (0.083 %) solution for nebulization cholecalciferol (vitamin D3) 25 2,000 unit PO DAILY 12/12/17 07/26/21 mcg (1,000 unit) capsule magnesium 250 mg tablet 250 mg PO DAILY 12/12/17 07/26/21 naloxone 4 mg/actuation nasal 1 spray intranasal ONCE PRN 12/12/17 07/26/21 spray (Narcan) tiotropium bromide 18 mcg capsule 1 cap inhalation DAILY 12/12/17 07/26/21 with inhalation device (Spiriva with HandiHaler) alprazolam 1 mg tablet 0.5 - 1 mg PO BID PRN 01/30/20 07/26/21 docusate sodium 100 mg capsule 100 mg PO DAILY 01/30/20 07/26/21 (Colace) ipratropium 0.5 mg-albuterol 3 mg 3 ml inhalation Q6H #90 mL 01/30/20 07/26/21 (2.5 mg base)/3 mL nebulization soln ascorbic acid (vitamin C) 500 mg 500 mg PO DAILY 02/06/20 07/26/21 tablet (Vitamin C) hydrocodone 10 mg-acetaminophen 1 tab PO QID PRN PRN Pain 02/06/20 07/26/21 325 mg tablet sennosides 8.6 mg tablet (senna) 8.6 mg PO QHS 02/06/20 07/26/21 albuterol sulfate 2.5 mg/3 mL 2.5 mg (3 mL) UPD Q2H PRN PRN #75 02/07/20 07/26/21 (0.083 %) solution for nebulization mL esomeprazole magnesium 40 mg 40 mg PO DAILY 06/30/20 07/26/21 capsule,delayed release fluticasone propionate 230 2 puff inhalation BID 06/30/20 07/26/21 mcg-salmeterol 21 mcg/actuation HFA inhaler (Advair HFA) ibuprofen 600 mg tablet 600 mg PO TID PRN 06/30/20 07/26/21 diazepam 5 mg tablet 5 mg PO TID PRN 06/28/21 07/26/21 fluconazole 100 mg tablet 100 mg PO DAILY PRN 06/28/21 07/26/21 cetirizine 10 mg tablet 10 mg PO DAILY PRN 07/26/21 07/26/21 Previous Rx's Medication Instructions Recorded ipratropium 0.5 mg-albuterol 3 mg 3 ml inhalation Q6H #90 mL 01/30/20 (2.5 mg base)/3 mL nebulization soln albuterol sulfate 2.5 mg/3 mL 2.5 mg (3 mL) UPD Q2H PRN PRN #75 02/07/20 (0.083 %) solution for nebulization mL Allergies Allergy/AdvReac Type Severity Reaction Status Date / Time cyproheptadine Allergy Mild unknown Verified 07/26/21 17:40 fluoxetine Allergy Mild unknown Verified 07/26/21 17:40 ketorolac Allergy Mild unknown Verified 07/26/21 17:40 morphine [From MS Contin] Allergy Mild unknown Verified 07/26/21 17:40 tramadol Allergy Mild unknown Verified 07/26/21 17:40 General Stated Complaint: RespSymp ENRRIQUE: 3 Review of Systems All systems reviewed & are unremarkable except as noted in HPI and below PFSH All Active Problems COVID-19 (Acute) Vitamin D deficiency (Acute) Constipation (Acute) COPD (chronic obstructive pulmonary disease) (Chronic) Xerostomia (Acute) Sinus congestion (Acute) Dyspnea (Acute) Upper abdominal pain (Acute) History of nicotine vaping (Acute) Acute bronchitis (Acute) Discharge planning issues (Acute) DVT prophylaxis (Acute) Environmental allergies (Acute) GERD (gastroesophageal reflux disease) (Chronic) Anxiety (Chronic) COPD exacerbation (Acute) Fibromyalgia muscle pain (Acute 03/13/13) Tobacco use (Acute 03/13/13) Medical History Abdominal pain Abnormal Pap history Remote history of 20-30yrs ago / Dx ? Tx Paps and HPV negative since then Anorexia Past history no problems for many years Chronic pain Chronic pharyngitis Cough Depression Disc degeneration Elevated amylase Fibromyalgia Hx of squamous cell carcinoma of skin Primary fibromyalgia syndrome PTSD (post-traumatic stress disorder) Seasonal allergic rhinitis Squamous cell carcinoma in situ of skin Stress at home Surgical History Appendectomy 1978 Bilateral thumb surgeries for arthritis 2012 Biopsy, Soft Tissue (03/13/17) right torso - squamous cell carcinoma in situ, margins negative, but close H/O abdominal surgery multiple abdominal surgeries to fixed a nicked bowel Ligation of fallopian tube R shoulder rotator cuff 2013 Release bowel adhesions Family History Mother Hypertension Other Heart disease Social History Smoking/Tobacco Use Status: Former Tobacco Use tobacco type: cigarettes and e- cigarettes Tobacco: How many years used: 25 Smoking risk assessment performed?: Yes Alcohol Intake: never Drug use: Never Substance use type: does not use Do you feel safe at home: Yes Exam Narrative Exam Narrative: 1.Const: Well-nourished, Well-developed, appearing stated age 2.Eyes: PERRL, no conjunctival injection, and symmetrical lids. 3.ENT: Atraumatic external nose and ears. Moist MM. Neck: Symmetric, trachea midline, No thyromegaly. 4.CVS: +S1/S2, No murmurs or gallops. Peripheral pulses 2+ and equal in all extremities. Brisk capillary refill in all extremities. 5.RESP: Unlabored respiratory effort. Clear to auscultation bilaterally. No wheezes rales or rhonchi 6.GI: Soft, Nontender/Nondistended, No hepatosplenomegaly. No guarding or rebound. 7.MSK: Normocephalic/Atraumatic, Extremities w/o deformity or ttp No cyanosis or clubbing, Normal movement of all extremities 8.Skin: Warm, Dry. No rashes or lesions. 9.Neuro: clothing designer II-XII grossly intact. Sensation grossly intact, no focal neurologic deficits. 10.Psych: (AAO) x3. Appropriate mood and affect Course Vital Signs Vital signs: Vital Signs Temperature 36.7 C 07/26/21 17:30 Pulse 60 07/26/21 17:30 Respiratory Rate 14 07/26/21 17:30 Blood Pressure 126/91 H 07/26/21 17:30 Pulse Oximetry 98 07/26/21 17:30 Temperature 37.1 C 07/26/21 18:32 Temperature Source Temporal Artery Scan 07/26/21 18:32 Pulse 74 07/26/21 18:32 Respiratory Rate 18 07/26/21 18:32 Respiratory Effort Non-Labored 07/26/21 17:39 Blood Pressure 134/82 07/26/21 18:32 Blood Pressure Position Sitting 07/26/21 17:30 Pulse Oximetry 96 07/26/21 18:32 Oxygen Delivery Method Room Air 07/26/21 18:32 Oxygen Flow Rate 0 07/26/21 18:32 Pain Level 0 07/26/21 18:32
[2021-07-26] MEDS: Normal Saline 500 ML IV (19:24)
== END 2021-07-26 21:45 | disposition home or self-care (01) ==
PROVIDERS: Emergency Provider Student in an Organized Health Care Education/Training Program; PCP Physician Assistant Medical
DX: U07.1 COVID-19 (principal)
CPT/HCPCS: 96361; 96374; 99284; Q0222; 99283

== ENCOUNTER → 2021-08-13 14:48 | Outpatient (CLI) | payer MEDICAID, SELFPAY ==
--- NOTE | 2021-08-13 | DI.RAD_ITS ---
Exam(s) XR LUMBAR SPINE COMPLETE EXAM: XR LUMBAR SPINE COMPLETE CLINICAL HISTORY: CHRONIC BACK PAIN, M54.89. TECHNIQUE: 2D digital imaging was performed. COMPARISON: No exams were available for comparison FINDINGS: Five views Is no evidence of fracture, listhesis, or pars interarticularis defects. Disc spaces exhibit normal height. Mild degenerative changes in the facet joints. Sacroiliac joints unremarkable. Anterior os seous lipping at L2-3 level noted. Mild scoliosis convex right. IMPRESSION: Mild findings as described. If clinically indicated follow-up MRI can be performed for added sensiti vity and specificity. DATA REPOSITORY: RADIATION DOSE DELIVERED:
== END ==
PROVIDERS: PCP Physician Assistant Medical; Visit Provider Physician Assistant Medical
DX: G89.29 Other chronic pain (principal); M54.9 Dorsalgia, unspecified
CPT/HCPCS: 72110

== ENCOUNTER → 2021-09-14 02:16 | Outpatient (CLI) | payer MEDICAID, SELFPAY ==
--- NOTE | 2021-09-14 | DI.RAD_ITS ---
Exam(s) XR HIP LT COMPLETE AP PELVIS EXAM: XR HIP LT COMPLETE AP PELVIS CLINICAL HISTORY: LT HIP PAIN, M25.552. TECHNIQUE: 2D digital imaging was performed of the left hip. Two views were obtained. AP pelvis an d lateral left hip views were obtained. COMPARISON: No exams were available for comparison FINDINGS: BONES: No acute fracture is present. No bony destructive lesion is seen. JOINTS: No dislocation present. SOFT TISSUE: Normal. IMPRESSION: Unremarkable radiographs of the left hip. Unremarkable radiographs of the pelvis DATA REPOSITORY: RADIATION DOSE DELIVERED:
== END ==
PROVIDERS: PCP Physician Assistant Medical; Visit Provider Physician Assistant Medical
DX: M25.552 Pain in left hip (principal)
CPT/HCPCS: 73502

== ENCOUNTER 2022-06-10 12:08 | Outpatient (REF) | payer MEDICAID, SELFPAY ==
--- NOTE | 2022-06-10 11:48 | SKI_PTH ---
PATIENT: Brielle Mcduffie LOC: [facility] U#:[id number] AGE/SX: 66/F ROOM: RE06/10/[address]: JL Ponce : 1955 BED: DIS: 06/10/2022 SPEC #: [id number] RECD: 06/13/22 11:55 STATUS: TATUM REQ #: [id number] BIANCA: 06/10/22 11:[address]: Harris Banegas DEPT: Surgical Specimen RECD BY: Iqra Gann ENTERED: 06/13/22 11:56 SP TYPE: LUIS F YANG DR: Stefany Moreno Tissues: 1 - SKIN BIOPSY(SHAVE/PUNCH) Procedures: SKIN LEVEL 4 Comments: [id number]
== END 2022-06-10 12:09 | disposition home or self-care (01) ==
LOC: LBN 12:08
PROVIDERS: PCP Physician Assistant Medical; Visit Provider Physician Assistant
DX: L82.1 Other seborrheic keratosis (principal); D49.2 Neoplasm of unspecified behavior of bone, soft tissue, and skin
CPT/HCPCS: 88305

== ENCOUNTER 2022-07-22 00:19 | Outpatient (CLI) | payer MEDICAID, SELFPAY ==
--- NOTE | 2022-07-22 08:45 | DI.MAMMO_ITS ---
Exam(s) US BREAST RT COMPLETE MAMMO DIAGNOSTIC BI EXAM: MAMMO DIAGNOSTIC BI and U/S breast RT complete CLINICAL HISTORY: LUMP OR MASS IN BREAST, N63.0. TECHNIQUE: Craniocaudal and mediolateral oblique Full Field Digital Mammography views with Computer Aided Diagnosis followed by Tomosynthesis and right breast ultrasound. COMPARISON: Comparison is made with prior examinations. FINDINGS: Mammography/Tomosynthesis: Masses/Architectural Distortion: There is a new 1 cm mass in the lower inner quadrant of the right br east. No associated microcalcifications are seen. Microcalcifictions: No suspicious pleomorphic-type are seen. Skin Thickening/Nipple Retraction: None. Complete right breast US: Echotexture: Normal appearance of the glandular tissue. Shadowing: No suspicious foci. Cyst: None. Solid lesions: There is a solid 0.7 x 0.9 cm hypoechoic irregular spiculated mass at the 6 o'clock po sition of the right breast 1 cm from the nipple. This corresponds to the mammographic abnormality. There is a solid irregular hypoechoic 1 x 2.3 cm lymph node in the right axilla. Ductal dilation: None. IMPRESSION: 1. 1 cm right breast mass suspicious for carcinoma. 2. Biopsy is recommended in this patient. 3. The findings were discussed with the patient and Marifer Nagel at 10:45 a.m. on 07/22/2022. BI-RADS Category 5 - Highly Suggestive of Malignancy: Biopsy recommended Breast Density - Category B - Scattered areas of fibroglandular density Breast density Category C or D implies that the patient has dense breast tissue. Dense breast tissue can make it harder to find cancer on a mammogram. Dense breast tissue is also associated with an incr eased risk of breast cancer. This information about the result of the mammogram report was provided to the patient to raise their awareness. Use this report when you speak with the patient about their risks for breast cancer, which includes their family history. At that time, you may recommend additional screening tests (Ultrasoun d or MRI) as these tests may add significant information. A negative radiographic report should not delay biopsy if a dominant or clinically suspicious mass is present. Up to ten percent of cancers are not identified on mammography. A negative report may reinforce clinical impression. Adenosis and dense breasts may obscure an underlying neoplasm. False positive reports average 6 to 10%. Patient will receive a letter notifying them of these results.
== END 2022-07-22 00:39 ==
LOC: DI 00:19
PROVIDERS: PCP Physician Assistant Medical; Visit Provider Physician Assistant Medical
DX: Z12.31 Encounter for screening mammogram for malignant neoplasm of breast (principal); N63.14 Unspecified lump in the right breast, lower inner quadrant
CPT/HCPCS: 76642; 77062; 77066; G0279

== ENCOUNTER 2022-08-02 01:43 | Outpatient (CLI) | payer MEDICAID, SELFPAY ==
--- NOTE | 2022-08-02 | DI.US_ITS ---
Exam(s) US NEEDLE LOCAL BREAST WO RAD EXAM: RT BREAST MASS COMPARISON: Comparison is made with prior examinations. TECHNIQUE: Ultrasound performed using standard protocol. FINDINGS: Sonography was provided for Dr. Blair during the performance of a right breast biopsy. Please ref er to the procedure report for complete details. DATA REPOSITORY:
--- NOTE | 2022-08-02 | DI.US_ITS ---
Exam(s) US NEEDLE LOCAL OTHER WO RAD EXAM: RT AXILLARY MASS COMPARISON: Comparison is made with prior examinations. TECHNIQUE: Ultrasound performed using standard protocol. FINDINGS: Sonography was provided for Dr. Blair during the performance of a right axillary biopsy. Please r efer to the procedure report for complete details. DATA REPOSITORY:
--- NOTE | 2022-08-02 12:42 | PAPNONF_PTH ---
PATIENT: Brielle Mcduffie LOC: [facility] U#:[id number] AGE/SX: 66/F ROOM: RE08/02/[address]: Nathalia Blair MD : 1955 BED: DIS: 08/02/2022 SPEC #: [id number] RECD: 08/02/22 13:25 STATUS: TATUM GARCIA #: [id number] BIANCA: 08/02/22 12:[address]: Nathalia Blair DEPT: [facility] Cytology RECD BY: Iqra Gann ENTERED: 08/02/22 13:26 SP TYPE: MICHAEL YANG DR: Stefany Moreno Tissues: 1 - BODY FLUID CYTO-FINE NEEDLE ASPIRATE-[facility] Procedures: BODY FLUID CYTO-FINE NEEDLE ASPIRATE-[facility] Comments: [id number] (PATH FNA CONSULT) (REFRIGERATED)
--- NOTE | 2022-08-02 12:42 | BREAST_PTH ---
PATIENT: Brielle Mcduffie LOC: [facility] U#:[id number] AGE/SX: 66/F ROOM: RE08/02/[address]: Nathalia Blair MD : 1955 BED: DIS: 08/02/2022 SPEC #: [id number] RECD: 08/02/22 13:06 STATUS: TATUM GARCIA #: [id number] BIANCA: 08/02/22 12:[address]: Nathalia Blair DEPT: Surgical Specimen RECD BY: Iqra Gann ENTERED: 08/02/22 13:10 SP TYPE: Breast OTHR DR: Stefany Moreno Tissues: 1 - BREAST BX NEEDLE Procedures: GROSS AND MICRO LEVEL 4 IMMUNOPEROXIDASE STAIN [id number] IPEX ESTROGEN/PROGESTERONE RECEPTOR IPEX STAIN Comments: [id number]
[2022-08-02] MEDS: Lidocaine 1% Pres-Free 5 ML VIAL IJ ×2 (13:26→13:27)
--- NOTE | 2022-08-02 14:57 | W.PM.OP ---
Date of service: 08/02/22 Time of Service: 12:30 Operative Note Operative Note DATE OF PROCEDURE: 08/02/22 PRE-OP DIAGNOSIS: Right Breast Mass and Right axillary lymphadenopathy POST-OP DIAGNOSIS: same PROCEDURE: 1. US guided Core needle biopsy of right Breast mass 2. US guided FNA of right axillary lymphnode SURGEON: Nathalia Blair ANESTHESIA TYPE: Local By Surgeon (1% Lidocaine (5 cc)) Refer to Anesthesia Record ESTIMATED BLOOD LOSS: 2 PATHOLOGY: other (Core biopsy for pathology, FNA cells for Pathology) COMPLICATIONS: None Patient was transported to: no change Patient's condition: stable Indications: Mrs Mcduffie is a pleasant 66 year old female who was refered by her PCP for a new abnormal Right Breast mass and abnormal axillary lymphnodes. Patient tells me that she felt an abnormality in her right Breast and saw her pcp. Mammogram and US were done which showed a mass suspicious for Malignancy. She was also noted to have an enlarged lymph node. She has no family history or personal history of Breast, ovarian or endometrial cancer. She has not noted any nipple discharge or skin changes. I discussed the procedure with her in detail. We reviewed the risks, benefits and complications of the procedure. We reviewed the placement of a small titanium clip and to the lesion. Complications include but are not limited to bleeding, bruising, not being able to get adequate tissue and injury to muscle or nerves. Questions were entertained and answered to her satisfaction. The patient had a good understanding of the risks of the procedure and wished to proceed. No guarantees were given or implied. Procedure Description: Procedure: After informed consent was obtained the patient was placed in a supine position. US was done of the Breast and the lesion was localized by the US tech on the Right Breast. The skin was cleaned with alcohol and infiltrated with the above local anesthetic. The skin was then prepped. An incision was made with an 11 blade. Using a 14 gauge core needle 3 specimens were removed and placed on telfa and placed in formalin. Under US guidence a small Titanium clip was placed into the Right Breast mass. The skin was cleaned and dried and a pressure dressing was applied. Next US of her right axilla was done. The enlarged Lymphnode (2.4 x 2.4 cm) was identified. The skin was cleaned and the above local anesthetic was injected into the skin. Under US guidence a 25 gauge spinal needle was passed severeal times into the lymphnode. The fluid was given to our pathologist who was in the room. On the first pass I didn't get enough cells. A second pass was done under US guidence and this time I did get enough cells for diagnoses. The skin was cleaned and dried and a bandaid was applied. The patient tolerated the procedure well and there were no immediate complications. She was provided with some ice packs to place over the breast and axilla to help with discomfort.
== END 2022-08-02 02:03 ==
LOC: DI 01:44
PROVIDERS: PCP Physician Assistant Medical; Visit Provider Surgery
DX: C79.81 Secondary malignant neoplasm of breast; C50.511 Malignant neoplasm of lower-outer quadrant of right female breast; C77.9 Secondary and unspecified malignant neoplasm of lymph node, unspecified
CPT/HCPCS: 19083; 10005; 88305; 88360; 76942; 88104; 88361

== ENCOUNTER 2022-08-12 12:38 | Outpatient (CLI) | payer MEDICAID, SELFPAY ==
[2022-08-12 10:25] LABS: Abs Immature Grans 0.01 10^3/uL (0.0-0.06); Absolute Basophil Count 0.03 10^3/uL (0.0-0.2); Absolute Eosinophil Count 0.06 10^3/uL (0.0-0.7); Absolute Lymphocyte Count 1.79 10^3/uL (1.2-3.4); Absolute Monocyte Count 0.47 10^3/uL (0.1-0.8); Basophils % 0.5; Eosinophils % 0.9; HCT 41.3 % (36.0-46.0); HGB 13.7 g/dL (11.2-15.7); Immature Grans % 0.2; Lymphocytes % 27.7; MCH 30.6 pg (27.0-33.0); MCHC 33.2 % (32.0-36.0); MCV 92 fL (80-95); MPV 9.5 fL (8.0-11.0); Monocytes % 7.3; Neutrophils % 63.4; Platelet Count 290 10^3/uL (130-400); RBC 4.48 10^6/uL (3.93-5.22); RDW 11.8 % (11.7-14.6); WBC 6.46 10^3/uL (4.4-10.8)
[2022-08-12 11:04] LABS: ALT 19 U/L (14-59); AST 14 U/L (15-37); Albumin 4.3 g/dL (3.4-5.0); Alkaline Phosphatase 43 U/L (46-116); Anion Gap 6.8 mmol/L (3-11); BUN 8 mg/dL (7-18); Bilirubin, Total 0.4 mg/dL (0.2-1.0); CO2 35.2 mmol/L (21.0-32.0); CREATININE 0.7 mg/dL (0.55-1.02); Calcium 9.8 mg/dL (8.5-10.1); Chloride 101 mmol/L (98-107); Estimated GFR 96.52 (mL/min/1.73m2); Glucose 103 mg/dL (74-106); Potassium 3.1 mmol/L (3.5-5.1); Sodium 143 mmol/L (136-145); Total Protein 7.1 g/dL (6.4-8.2)
[2022-08-12 20:41] LABS: CEA 2.1 ng/mL (See Note)
== END 2022-08-12 12:39 | disposition home or self-care (01) ==
LOC: LBO 12:39
PROVIDERS: PCP Physician Assistant Medical; Visit Provider Internal Medicine Medical Oncology
DX: C50.511 Malignant neoplasm of lower-outer quadrant of right female breast (principal); Z17.1 Estrogen receptor negative status [ER-]
CPT/HCPCS: 36415; 80053; 86304; 82378; 85025; 86300

== ENCOUNTER 2022-08-24 01:29 | Outpatient (CLI) | payer MEDICAID, SELFPAY ==
--- NOTE | 2022-08-24 | DI.US_ITS ---
Exam(s) US NEEDLE LOCAL BREAST WO RAD EXAM: US NEEDLE LOCAL BREAST WO RAD CLINICAL HISTORY: ULTRASOUND GUIDED CLIP PLACEMENT AT RT LYMPH NODE,. Right Breast. Left Breast. TECHNIQUE: Ultrasound guidance provided COMPARISON: US US NEEDLE LOCAL OTHER WO RAD from 08/02/2022 FINDINGS: Ultrasound guidance was provided for clip placement within right axillary lymph node. IMPRESSION: As above.
--- NOTE | 2022-08-24 20:37 | OPPNE_ITS ---
Date of service: 08/24/22 Time of Service: 14:00 Procedure Note Date of procedure: 08/24/22 Procedure: Insertion of radioclip on right axillary node Surgeon/Proceduralist/Physician: Partha Walsh Procedure Diagnosis: Breast cancer Procedure Indications: Brielle is 66 years old and she has a new diagnosis of right breast cancer. She underwent FNA of an axillary lymph node that supports the diagnosis of metastatic breast cancer. That node was not marked during the FNA, and her mission assessment specialist is requiring marking of the lymph node prorio to starting neoadjuvent therapy. Procedure Description: Brielle and I reviewed the plan for insertion of a radiopaque marker into the previously sampled right axillary lymph node. I reminded her that it is possible that this will not be the node that was previously sampled. Think she has a good understanding of this. We also reviewed the other risks of the procedure, which include bleeding, and for lower chance of infection. She was able to provide informed consent. Next, we performed a limited ultrasound of the right axilla. Although several nodes were evident, there was 1 node that was clearly dominant in terms of size relative to the others. Next, I gently prepped the skin. Then, under the assistance of real-time ultrasonography, I established a local anesthetic wheal at the skin level, and anesthetized the trajectory towards the lymph node. I then made a small incision through the skin with a scalpel allowing me to introduce a Bard ultra clip II through the skin. I advanced the device up to the lymph node, again using ultrasound to confirm the appropriate location. I then deployed the clip into the node. Position was confirmed with ultrasound. The device was removed, some gentle pressure was held over the access site, and a Band-Aid was used to dress it. Brielle tolerated the procedure just fine, and I provided some basic wound care and follow-up instructions.
== END 2022-08-24 01:49 ==
LOC: DI 01:31
PROVIDERS: PCP Physician Assistant Medical; Visit Provider Surgery
DX: C50.511 Malignant neoplasm of lower-outer quadrant of right female breast (principal); Z17.1 Estrogen receptor negative status [ER-]
CPT/HCPCS: 76942

== ENCOUNTER 2022-09-08 03:39 | Outpatient (RCR) | payer MEDICAID, SELFPAY ==
[2022-09-01] MEDS: Normal Saline Flush 10 ML SYR IVP (07:47)
[2022-09-01 08:05] LABS: Abs Immature Grans 0.03 10^3/uL (0.0-0.06); Absolute Basophil Count 0.04 10^3/uL (0.0-0.2); Absolute Eosinophil Count 0.07 10^3/uL (0.0-0.7); Absolute Lymphocyte Count 1.04 10^3/uL (1.2-3.4); Absolute Monocyte Count 0.33 10^3/uL (0.1-0.8); Absolute Neutrophil Count 4.14 10^3/uL (1.2-6.7); Basophils % 0.7; Eosinophils % 1.2; HCT 38.9 % (36.0-46.0); HGB 12.9 g/dL (11.2-15.7); Immature Grans % 0.5; Lymphocytes % 18.4; MCH 30.5 pg (27.0-33.0); MCHC 33.2 % (32.0-36.0); MCV 92 fL (80-95); MPV 9.9 fL (8.0-11.0); Monocytes % 5.8; Neutrophils % 73.4; Platelet Count 313 10^3/uL (130-400); RBC 4.23 10^6/uL (3.93-5.22); RDW 11.8 % (11.7-14.6); RDW-SD 39.8 fL; WBC 5.65 10^3/uL (4.4-10.8)
[2022-09-01 08:19] LABS: ALT 21 U/L (14-59); AST 14 U/L (15-37); Albumin 4.2 g/dL (3.4-5.0); Alkaline Phosphatase 43 U/L (46-116); Anion Gap 6.6 mmol/L (3-11); BUN 11 mg/dL (7-18); Bilirubin, Total 0.5 mg/dL (0.2-1.0); CO2 29.4 mmol/L (21.0-32.0); CREATININE 0.6 mg/dL (0.55-1.02); Calcium 9.2 mg/dL (8.5-10.1); Chloride 106 mmol/L (98-107); Estimated GFR 100.17 (mL/min/1.73m2); Glucose 107 mg/dL (74-106); Potassium 3.6 mmol/L (3.5-5.1); Sodium 142 mmol/L (136-145); Total Protein 7.2 g/dL (6.4-8.2)
[2022-09-08] MEDS: Normal Saline Flush 10 ML SYR IVP (07:36)
[2022-09-08 08:24] LABS: Abs Immature Grans 0.02 10^3/uL (0.0-0.06); Absolute Basophil Count 0.04 10^3/uL (0.0-0.2); Absolute Eosinophil Count 0.09 10^3/uL (0.0-0.7); Absolute Lymphocyte Count 1.41 10^3/uL (1.2-3.4); Absolute Monocyte Count 0.37 10^3/uL (0.1-0.8); Absolute Neutrophil Count 2.85 10^3/uL (1.2-6.7); Basophils % 0.8; Eosinophils % 1.9; HGB 12.3 g/dL (11.2-15.7); Immature Grans % 0.4; Lymphocytes % 29.5; MCH 30.7 pg (27.0-33.0); MCHC 33.2 % (32.0-36.0); MCV 92 fL (80-95); MPV 9.9 fL (8.0-11.0); Monocytes % 7.7; Neutrophils % 59.7; Platelet Count 345 10^3/uL (130-400); RBC 4.01 10^6/uL (3.93-5.22); RDW 12.2 % (11.7-14.6); WBC 4.78 10^3/uL (4.4-10.8)
[2022-09-08 08:46] LABS: ALT 23 U/L (14-59); AST 18 U/L (15-37); Albumin 4.2 g/dL (3.4-5.0); Alkaline Phosphatase 43 U/L (46-116); Anion Gap 7.4 mmol/L (3-11); BUN 13 mg/dL (7-18); Bilirubin, Total 0.5 mg/dL (0.2-1.0); CO2 27.6 mmol/L (21.0-32.0); CREATININE 0.6 mg/dL (0.55-1.02); Calcium 9.1 mg/dL (8.5-10.1); Chloride 106 mmol/L (98-107); Estimated GFR 100.17 (mL/min/1.73m2); Glucose 101 mg/dL (74-106); Potassium 3.8 mmol/L (3.5-5.1); Sodium 141 mmol/L (136-145); Total Protein 7.1 g/dL (6.4-8.2)
== END 2022-09-12 23:59 | disposition home or self-care (01) ==
LOC: INF 03:39
PROVIDERS: PCP Physician Assistant Medical; Visit Provider Internal Medicine Medical Oncology
DX: C50.511 Malignant neoplasm of lower-outer quadrant of right female breast (principal); Z17.1 Estrogen receptor negative status [ER-]; Z45.2 Encounter for adjustment and management of vascular access device
CPT/HCPCS: 36591; 80053; 85025

== ENCOUNTER 2022-10-13 01:20 | Outpatient (RCR) | payer MEDICARE, MEDICAID, SELFPAY ==
[2022-09-15] MEDS: Normal Saline Flush 10 ML SYR IVP (07:43)
[2022-09-15 08:19] LABS: Eosinophils % 0.7; HCT 36.9 % (36.0-46.0); HGB 12.2 g/dL (11.2-15.7); Lymphocytes % 25.1; MCH 30.7 pg (27.0-33.0); MCHC 33.1 % (32.0-36.0); MCV 93 fL (80-95); MPV 9.9 fL (8.0-11.0); Monocytes % 7.7; Neutrophils % 64.7; Platelet Count 352 10^3/uL (130-400); RBC 3.98 10^6/uL (3.93-5.22); RDW 12.7 % (11.7-14.6); RDW-SD 41.9 fL; WBC 4.42 10^3/uL (4.4-10.8)
[2022-09-15 08:20] LABS: Abs Immature Grans 0.03 10^3/uL (0.0-0.06); Absolute Basophil Count 0.05 10^3/uL (0.0-0.2); Absolute Eosinophil Count 0.03 10^3/uL (0.0-0.7); Absolute Lymphocyte Count 1.11 10^3/uL (1.2-3.4); Absolute Monocyte Count 0.34 10^3/uL (0.1-0.8); Absolute Neutrophil Count 2.86 10^3/uL (1.2-6.7); Basophils % 1.1; Immature Grans % 0.7
[2022-09-15 08:35] LABS: ALT 20 U/L (14-59); AST 12 U/L (15-37); Albumin 4.2 g/dL (3.4-5.0); Alkaline Phosphatase 45 U/L (46-116); Anion Gap 8.6 mmol/L (3-11); BUN 12 mg/dL (7-18); Bilirubin, Total 0.4 mg/dL (0.2-1.0); CO2 26.4 mmol/L (21.0-32.0); CREATININE 0.6 mg/dL (0.55-1.02); Calcium 9.1 mg/dL (8.5-10.1); Chloride 104 mmol/L (98-107); Estimated GFR 100.17 (mL/min/1.73m2); Glucose 102 mg/dL (74-106); Potassium 3.8 mmol/L (3.5-5.1); Sodium 139 mmol/L (136-145); Total Protein 7.1 g/dL (6.4-8.2)
[2022-09-15 19:28] LABS: CEA 2.3 ng/mL (See Note)
[2022-09-16 16:41] LABS: Cancer Ag 15-3 9.6 U/mL (<30)
[2022-09-29] MEDS: Normal Saline Flush 10 ML SYR IVP (07:41)
[2022-09-29 07:42] LABS: Abs Immature Grans 0.01 10^3/uL (0.0-0.06); Absolute Basophil Count 0.02 10^3/uL (0.0-0.2); Absolute Eosinophil Count 0.09 10^3/uL (0.0-0.7); Absolute Monocyte Count 0.35 10^3/uL (0.1-0.8); Absolute Neutrophil Count 2.07 10^3/uL (1.2-6.7); Basophils % 0.5; Eosinophils % 2.3; HCT 34.8 % (36.0-46.0); HGB 11.4 g/dL (11.2-15.7); Immature Grans % 0.3; Lymphocytes % 33.9; MCH 30.7 pg (27.0-33.0); MCHC 32.8 % (32.0-36.0); MCV 94 fL (80-95); MPV 9.5 fL (8.0-11.0); Monocytes % 9.1; Neutrophils % 53.9; Platelet Count 233 10^3/uL (130-400); RBC 3.71 10^6/uL (3.93-5.22); RDW 13.7 % (11.7-14.6); RDW-SD 45.9 fL; WBC 3.84 10^3/uL (4.4-10.8)
[2022-09-29 07:57] LABS: ALT 24 U/L (14-59); AST 17 U/L (15-37); Alkaline Phosphatase 41 U/L (46-116); Anion Gap 7.3 mmol/L (3-11); BUN 17 mg/dL (7-18); Bilirubin, Total 0.4 mg/dL (0.2-1.0); CO2 28.7 mmol/L (21.0-32.0); CREATININE 0.6 mg/dL (0.55-1.02); Chloride 107 mmol/L (98-107); Estimated GFR 99.55 (mL/min/1.73m2); Glucose 95 mg/dL (74-106); Potassium 3.9 mmol/L (3.5-5.1); Sodium 143 mmol/L (136-145); Total Protein 6.8 g/dL (6.4-8.2)
[2022-10-13] MEDS: Normal Saline Flush 10 ML SYR IVP (08:36)
[2022-10-13 08:56] LABS: Abs Immature Grans 0.02 10^3/uL (0.0-0.06); Absolute Basophil Count 0.03 10^3/uL (0.0-0.2); Absolute Eosinophil Count 0.06 10^3/uL (0.0-0.7); Absolute Lymphocyte Count 1.11 10^3/uL (1.2-3.4); Absolute Monocyte Count 0.38 10^3/uL (0.1-0.8); Absolute Neutrophil Count 2.56 10^3/uL (1.2-6.7); Basophils % 0.7; Eosinophils % 1.4; HCT 35.3 % (36.0-46.0); HGB 11.6 g/dL (11.2-15.7); Immature Grans % 0.5; Lymphocytes % 26.7; MCHC 32.9 % (32.0-36.0); MCV 94 fL (80-95); MPV 9.1 fL (8.0-11.0); Monocytes % 9.1; Neutrophils % 61.6; Platelet Count 236 10^3/uL (130-400); RBC 3.74 10^6/uL (3.93-5.22); RDW 14.8 % (11.7-14.6); RDW-SD 49.9 fL; WBC 4.16 10^3/uL (4.4-10.8)
[2022-10-13 09:00] LABS: ALT 26 U/L (14-59); AST 14 U/L (15-37); Albumin 4.1 g/dL (3.4-5.0); Alkaline Phosphatase 48 U/L (46-116); Anion Gap 8.3 mmol/L (3-11); BUN 16 mg/dL (7-18); Bilirubin, Total 0.4 mg/dL (0.2-1.0); CO2 27.7 mmol/L (21.0-32.0); CREATININE 0.6 mg/dL (0.55-1.02); Calcium 9.3 mg/dL (8.5-10.1); Chloride 104 mmol/L (98-107); Estimated GFR 99.55 (mL/min/1.73m2); Glucose 106 mg/dL (74-106); Potassium 3.8 mmol/L (3.5-5.1); Sodium 140 mmol/L (136-145); Total Protein 7.1 g/dL (6.4-8.2)
== END 2022-10-13 23:59 | disposition home or self-care (01) ==
LOC: INF 01:20
PROVIDERS: PCP Physician Assistant Medical; Visit Provider Internal Medicine Medical Oncology
DX: C50.511 Malignant neoplasm of lower-outer quadrant of right female breast (principal); Z17.1 Estrogen receptor negative status [ER-]; Z45.2 Encounter for adjustment and management of vascular access device
CPT/HCPCS: 36591; 80053; 86304; 82378; 85025; 86300

== ENCOUNTER 2022-10-14 08:05 | Emergency (ER) | payer MEDICARE, MEDICAID, SELFPAY ==
[2022-10-14 08:11] VITALS: BP 133/71; PULSE 82; RESP 20; TEMP 37.7; O2SAT 97
--- NOTE | 2022-10-14 08:28 | W.ED.GENAD ---
Discharge Plan Disposition Patient Disposition: Home Discharge Details Clinical Impression: Fever, Enteritis Primary Care Provider: Stefany Moreno ED Provider: Charles Angela Home Meds and New Rx's Prescriptions: Continued diazepam 5 mg tablet 5 mg PO TID PRN fluconazole 100 mg tablet 100 mg PO DAILY PRN albuterol sulfate 2.5 mg /3 mL (0.083 %) solution for nebulization 1.25 mg IH Q4H PRN cholecalciferol (vitamin D3) 1,000 unit capsule 2,000 unit PO DAILY Spiriva with HandiHaler 18 mcg capsule, w/inhalation device 1 cap IH DAILY magnesium 250 mg tablet 250 mg PO DAILY naloxone [Narcan] 4 mg/actuation spray,non-aerosol 1 spray ANNAMARIA ONCE PRN trazodone 50 MG tablet 50 mg PO DAILY ibuprofen 600 mg tablet 600 mg PO TID PRN fluticasone propion-salmeterol [Advair HFA] 230-21 mcg/actuation HFA aerosol inhaler 2 puff inhalation BID alprazolam 1 mg tablet 0.5 - 1 mg PO BID PRN Patient Comments: TK 1/2-1 PO BID PRN docusate sodium [Colace] 100 mg Capsule 100 mg PO DAILY ipratropium-albuterol 0.5 mg-3 mg(2.5 mg base)/3 mL solution for nebulization 3 ml IH Q6H Qty: 90 0RF hydrocodone-acetaminophen 10-325 mg tablet 1 tab PO QID PRN PRN (Reason: Pain) Patient Comments: TK 1 T PO QID PRN FOR PAIN sennosides [senna] 8.6 mg Tablet 8.6 mg PO QHS ascorbic acid (vitamin C) [Vitamin C] 500 mg Tablet 500 mg PO DAILY albuterol sulfate 2.5 mg /3 mL (0.083 %) Solution For Nebulization 2.5 mg UPD Q2H PRN PRNQty: 75 0RF cetirizine 10 mg tablet 10 mg PO DAILY PRN Discharge Instructions Instructions: Fever in Adults (ED) Additional Instructions: As discussed please continue to monitor your symptoms. If you start having a return or significant worsening of symptoms or new symptoms along with continued increase of fever return immediately to the emergency department for reassessment. Otherwise continue to take your medications as prescribed and follow-up with your oncologist Referrals: [facility] [Outside] (Follow-up with your oncologist as needed) Discharge Data Discharge Date/Time-TO BE ENTERED AT DEPARTURE: 10/14/22 12:46 Medical Decision Making Patient presenting to the emergency department for chief complaint of fever. Patient reports that she is on chemo for breast cancer and had her last treatment yesterday. Starting yesterday evening she started having some nausea abdominal pain and diarrhea. She does report that she has had had some of the symptoms after chemo but never has run a fever. She stated it was 100.4 at home and so came into the emergency department. Patient did take Compazine in the middle the night which resolved her nausea and vomiting and has had no further episodes of diarrhea. Patient denies all other symptoms and review of systems otherwise unremarkable. Physical exam is unremarkable with no focal findings noted, stable vital signs except for noted elevated temp. Given the patient is on chemo we will proceed with full work-up and pending results will give patient IV fluids and acetaminophen. Reviewed patient's labs and fairly unremarkable CBC compared to labs done yesterday, patient's lactate 0.6, potassium slightly low at 3.3 which we will orally replete, CMP otherwise unremarkable. Procalcitonin was less than 0.1, urinalysis none diagnostic. CT imaging was performed and did show some findings of enteritis otherwise nondiagnostic. Called and spoke with Dr. Cr [facility] oncologist. He recommended just continued monitoring by patient with close return precautions. Given that patient is not neutropenic and otherwise nonspecific work-up advised against empiric antibiotics at this point. Discussed this with patient and patient was in agreement with this plan of care. Patient states that she probably would not even come in except for her she daily checks her temperature before taking her pills. Given that she has no focal complaints otherwise and has had resolution of her nausea vomiting abdominal pain patient discharged to continue her normal medications and to follow-up with oncology or return as needed. After discussion of diagnosis and plan of care patient has no further needs, questions, or concerns and states clear understanding to return to the emergency department for any worsening symptoms. This documentation was generated using [employer] system, please disregard any oddities of phrase or misspellings. Imaging Data Radiologic Study: Attestation: I personally reviewed and interpreted this imaging study as follows: Imaging: CT Scan Radiologist's impression: Exam(s) a CT:CT abdomen & pelvis w Exam(s) CT ABDOMEN PELVIS W EXAM: CT ABDOMEN PELVIS W CLINICAL HISTORY: fever, abd pain n/v/d. TECHNIQUE: Imaging Protocol: Axial computed tomography images with coronal and sagittal reformatted images were created and reviewed CONTRAST MATERIAL: Intravenous: Omnipaque 350 Contrast volume:100 ml Oral: yes / no COMPARISON: CT CT ABDOMEN PELVIS W from 12/12/[address] CHEST PE CTA from 02/05/2020 CR XR CHEST 2V PA LATERAL from 10/14/2022 FINDINGS: ABDOMEN: Lung Bases: Linear scarring versus atelectasis. Liver: Normal density. No measurable mass. Gallbladder and biliary tract: No radiodense calculus or dilation. Pancreas: Normal density, no abnormal calcifications or inflammatory process. Spleen: Normal. Kidneys: Normal size, contour and axis. Stable prominent extrarenal pelves. No radiodense stones or obstructive uropathy. No suspicious masses seen. Adrenal glands: No masses seen. Vasculature: Abdominal aorta non-dilated. Calcifications noted distally. Celiac axis, SMA and MIRELLA appear patent. Portal vein and SMV unremarkable. Mildly prominent gonadal veins and pelvic veins. No evidence of thrombus. Soft tissues: Unremarkable. PELVIS: Bladder: No gross wall thickening. No calculi.No focal mass. Bowel: Fluid filled loops of small bowel mildly distended. Fluid also seen in cecum and ascending colon. No wall thickening or pneumatosis. No obstruction. No bowel wall thickening. Appendix normal. Peritoneal cavity: No ascites, collection or mesenteric inflammatory response. Bones: Unremarkable for age. Reproductive organs: Within normal limits. Lymph nodes: Unremarkable. IMPRESSION:: Small bowel is mildly distended and fluid-filled small which could represent an enteritis. No evidence of obstruction. Radiologic Study #2: Imaging: X-Ray Radiologist's impression: Exam(s) XR CHEST 2V PA LATERAL EXAM: XR CHEST 2V PA LATERAL CLINICAL HISTORY: fever TECHNIQUE: 2D digital imaging was performed. COMPARISON: CR XR CHEST 2V PA LATERAL from 02/19/2020 FINDINGS: A port is in place over the left chest. The tip lies the lower SVC. HEART: Normal size. Aorta: Not dilated. PULMONARY VASCULATURE: Normal. LUNGS: Clear. PLEURAL SPACE: No pleural effusion or pneumothorax. BONE:Unremarkable for age. IMPRESSION: No acute abnormality. Lab Data Lab results reviewed: Yes I reviewed the patient's lab results. HPI General Mode of arrival: ambulatory. Date/Time Provider Initiated Documentation: 10/14/22 08:08. Limitations to Documentation: no limitations. Information obtained by: patient and RN notes reviewed. History of Present Illness 67 year old F presents to the emergency department with the chief complaint of fever, described as mild and moderate, Quality is described as aching, and is localized to the abdomen. Patient started experiencing this hour(s) (12) and it has been constant. No relieving factors improve symptom(s), No exacerbating factors reported . Patient did receive the following treatments prior to arrival, none Related Data Home Medications Medication Instructions Recorded Confirmed trazodone 50 mg tablet 50 mg PO DAILY 03/13/13 08/09/22 albuterol sulfate 2.5 mg/3 mL 1.25 mg inhalation Q4H PRN 12/12/17 08/09/22 (0.083 %) solution for nebulization cholecalciferol (vitamin D3) 25 2,000 unit PO DAILY 12/12/17 08/09/22 mcg (1,000 unit) capsule magnesium 250 mg tablet 250 mg PO DAILY 12/12/17 08/09/22 naloxone 4 mg/actuation nasal 1 spray intranasal ONCE PRN 12/12/17 08/09/22 spray (Narcan) tiotropium bromide 18 mcg capsule 1 cap inhalation DAILY 12/12/17 08/09/22 with inhalation device (Spiriva with HandiHaler) alprazolam 1 mg tablet 0.5 - 1 mg PO BID PRN 01/30/20 08/09/22 docusate sodium 100 mg capsule 100 mg PO DAILY 01/30/20 08/09/22 (Colace) ipratropium 0.5 mg-albuterol 3 mg 3 ml inhalation Q6H #90 mL 01/30/20 08/09/22 (2.5 mg base)/3 mL nebulization soln ascorbic acid (vitamin C) 500 mg 500 mg PO DAILY 02/06/20 08/09/22 tablet (Vitamin C) hydrocodone 10 mg-acetaminophen 1 tab PO QID PRN PRN Pain 02/06/20 08/09/22 325 mg tablet sennosides 8.6 mg tablet (senna) 8.6 mg PO QHS 02/06/20 08/09/22 albuterol sulfate 2.5 mg/3 mL 2.5 mg (3 mL) UPD Q2H PRN PRN #75 02/07/20 08/09/22 (0.083 %) solution for nebulization mL fluticasone propionate 230 2 puff inhalation BID 06/30/20 08/09/22 mcg-salmeterol 21 mcg/actuation HFA inhaler (Advair HFA) ibuprofen 600 mg tablet 600 mg PO TID PRN 06/30/20 08/09/22 diazepam 5 mg tablet 5 mg PO TID PRN 06/28/21 08/09/22 fluconazole 100 mg tablet 100 mg PO DAILY PRN 06/28/21 08/09/22 cetirizine 10 mg tablet 10 mg PO DAILY PRN 07/26/21 08/09/22 Previous Rx's Medication Instructions Recorded ipratropium 0.5 mg-albuterol 3 mg 3 ml inhalation Q6H #90 mL 01/30/20 (2.5 mg base)/3 mL nebulization soln albuterol sulfate 2.5 mg/3 mL 2.5 mg (3 mL) UPD Q2H PRN PRN #75 02/07/20 (0.083 %) solution for nebulization mL Allergies Allergy/AdvReac Type Severity Reaction Status Date / Time cyproheptadine Allergy Mild unknown Verified 08/08/22 13:58 fluoxetine Allergy Mild unknown Verified 08/08/22 13:58 ketorolac Allergy Mild unknown Verified 08/08/22 13:58 morphine [From MS Contin] Allergy Mild unknown Verified 08/08/22 13:58 tramadol Allergy Mild unknown Verified 08/08/22 13:58 General Stated Complaint: Fever ENRRIQUE: 3 Review of Systems Constitutional Constitutional: Reports chills, Reports fever(s), Denies headache(s), Reports malaise and Reports poor appetite ENT Ears, Nose, Mouth, and Throat: Denies headache(s), Denies nasal congestion and Denies sore throat Cardiovascular Cardiovascular: Denies chest pain and Denies dyspnea Respiratory Respiratory: Denies cough and Denies dyspnea Gastrointestinal Gastrointestinal: Reports as per HPI, Reports abdominal pain, Denies melena, Denies change in bowel habits, Denies constipation, Reports diarrhea, Reports nausea and Reports vomiting Genitourinary Genitourinary: Denies hematuria, Denies urinary incontinence, Denies urinary hesitancy and Denies urinary urgency Integumentary/Breasts Skin/Breast: Denies rash Neurologic Neurologic: Denies headache(s) PFSH All Active Problems Fever (Acute) Enteritis (Acute) Invasive ductal carcinoma of right breast in female (Acute) triple negative with positive lymph node COVID-19 (Acute) Vitamin D deficiency (Acute) Constipation (Acute) COPD (chronic obstructive pulmonary disease) (Chronic) Xerostomia (Acute) Sinus congestion (Acute) Dyspnea (Acute) Upper abdominal pain (Acute) History of nicotine vaping (Acute) Acute bronchitis (Acute) Discharge planning issues (Acute) DVT prophylaxis (Acute) Environmental allergies (Acute) GERD (gastroesophageal reflux disease) (Chronic) Anxiety (Chronic) COPD exacerbation (Acute) Fibromyalgia muscle pain (Acute 03/13/13) Tobacco use (Acute 03/13/13) Medical History Abdominal pain Abnormal Pap history Remote history of 20-30yrs ago / Dx ? Tx Paps and HPV negative since then Anorexia Past history no problems for many years Chronic pain Chronic pharyngitis Cough Depression Disc degeneration Elevated amylase Fibromyalgia Hx of squamous cell carcinoma of skin Primary fibromyalgia syndrome PTSD (post-traumatic stress disorder) Seasonal allergic rhinitis Squamous cell carcinoma in situ of skin Stress at home Surgical History Appendectomy 1978 Bilateral thumb surgeries for arthritis 2013 Biopsy, Soft Tissue (03/13/17) right torso - squamous cell carcinoma in situ, margins negative, but close H/O abdominal surgery multiple abdominal surgeries to fixed a nicked bowel Ligation of fallopian tube R shoulder rotator cuff 2013 Release bowel adhesions Family History Mother Hypertension Other Heart disease Social History Smoking/Tobacco Use Status: Former Tobacco Use tobacco type: cigarettes and e-cigarettes Tobacco: How many years used: 25 Smoking risk assessment performed?: Yes Alcohol Intake: never Drug use: Never Substance use type: does not use Housing: house Do you feel safe at home: Yes Exam Const General: cooperative, comfortable and no acute distress Orientation: alert and awake [facility] Head: normal to inspection, normocephalic and atraumatic Ears: hearing grossly normal bilaterally and TM's normal bilaterally General nose exam: external nose normal Face and sinus: no erythema Mouth: oral mucosae normal, no drooling, no muffled voice and no trismus Throat: posterior oropharynx normal Neck Neck: normal visual inspection, full ROM, no lymphadenopathy, no meningeal signs, trachea midline and supple Resp Effort & Inspection: normal respiratory effort and able to speak in complete sentences Auscultation: clear to auscultation bilaterally Cardio Rate: regular rate Rhythm: regular rhythm Heart Sounds: S1 normal, S2 normal, normal S1 and S2, no click, no gallops, no murmurs and no rubs GI Palpation: soft, no hepatosplenomegaly, not firm, no guarding, no masses, no pulsatile masses, not rigid, no splenomegaly and nontender Auscultation: normal bowel sounds Skin General skin exam: no rashes or lesions noted and dry skin (warm) Neuro General: patient alert, patient awake, patient oriented x3, gait normal and moves all extremities Cognition: normal cognition Speech: speech normal Course Vital Signs Vital signs: Vital Signs Temperature 37.7 C H 10/14/22 08:11 Pulse 82 10/14/22 08:11 Respiratory Rate 20 10/14/22 08:11 Blood Pressure 133/71 10/14/22 08:11 Pulse Oximetry 97 10/14/22 08:11 Temperature 37.7 C H 10/14/22 08:11 Temperature Source Oral 10/14/22 08:11 Pulse 82 10/14/22 08:11 Respiratory Rate 20 10/14/22 08:11 Respiratory Effort Normal, Non-Labored 10/14/22 08:25 Blood Pressure 133/71 10/14/22 08:11 Pulse Oximetry 97 10/14/22 08:11 Lab/Test Results Lab/Test Results: 10/14/22 08:17 Blood Blood Culture - Pending 10/14/22 08:17 Blood Blood Culture - Pending
[2022-10-14 08:59] LABS: Abs Immature Grans 0.02 10^3/uL (0.0-0.06); Absolute Basophil Count 0.01 10^3/uL (0.0-0.2); Absolute Eosinophil Count 0.02 10^3/uL (0.0-0.7); Absolute Lymphocyte Count 0.29 10^3/uL (1.2-3.4); Absolute Monocyte Count 0.28 10^3/uL (0.1-0.8); Absolute Neutrophil Count 3.55 10^3/uL (1.2-6.7); Basophils % 0.2; Eosinophils % 0.5; HCT 32.8 % (36.0-46.0); HGB 11.2 g/dL (11.2-15.7); Immature Grans % 0.5; Lactate 0.6 mmol/L (0.6-1.4); MCH 31.7 pg (27.0-33.0); MCHC 34.1 % (32.0-36.0); MCV 93 fL (80-95); MPV 8.8 fL (8.0-11.0); Monocytes % 6.7; Neutrophils % 85.1; Platelet Count 191 10^3/uL (130-400); RBC 3.53 10^6/uL (3.93-5.22); RDW 15.1 % (11.7-14.6); RDW-SD 50.2 fL; WBC 4.17 10^3/uL (4.4-10.8)
[2022-10-14 09:01] VITALS: TEMP 37.9
[2022-10-14] MEDS: ACETAMINOPHEN 1,000 MG/100 ML BTL 400 MG IVPB (09:01)
[2022-10-14] MEDS: Normal Saline 1,000 ML 1000 ML IV (09:03)
[2022-10-14 09:14] LABS: Lipase 26 U/L (16-77)
[2022-10-14 09:19] LABS: ALT 24 U/L (14-59); AST 17 U/L (15-37); Albumin 3.9 g/dL (3.4-5.0); Alkaline Phosphatase 45 U/L (46-116); Anion Gap 9.5 mmol/L (3-11); BUN 14 mg/dL (7-18); Bilirubin, Total 0.5 mg/dL (0.2-1.0); CO2 26.5 mmol/L (21.0-32.0); CREATININE 0.6 mg/dL (0.55-1.02); Calcium 9.1 mg/dL (8.5-10.1); Chloride 101 mmol/L (98-107); Estimated GFR 99.55 (mL/min/1.73m2); Glucose 108 mg/dL (74-106); Magnesium 1.9 mg/dL (1.8-2.4); Potassium 3.3 mmol/L (3.5-5.1); Sodium 137 mmol/L (136-145); Total Protein 6.8 g/dL (6.4-8.2)
[2022-10-14 09:29] LABS: Bilirubin Negative (Negative); Blood Small (Negative); Clarity Clear (Clear); Glucose Negative (Negative); Ketones Trace mg/dL (Negative); Leukocyte Esterase Negative (Negative); Nitrite Negative (Negative); Specific Gravity 1.015 (1.005-1.025); Urobilinogen 0.2 mg/dL (Up to 0.2)
[2022-10-14 09:35] LABS: Bacteria Few HPF (Negative); Epithelial Cells Rare HPF (Negative); Other Cells Negative (Negative)
[2022-10-14 09:36] LABS: C & S Indicated? Yes; Casts Negative LPF (Negative); Crystals Negative HPF (Negative); Mucus Negative (Negative)
[2022-10-14 09:38] LABS: COVID-19 PCR Negative (Negative); Influenza A PCR Negative (Negative); Influenza B PCR Negative (Negative); RSV PCR Negative (Negative)
[2022-10-14 09:43] LABS: Procalcitonin < 0.1 ng/mL
[2022-10-14 09:46] LABS: Source Nasopharynx
--- NOTE | 2022-10-14 09:50 | DI.RAD_ITS ---
Exam(s) XR CHEST 2V PA LATERAL EXAM: XR CHEST 2V PA LATERAL CLINICAL HISTORY: fever TECHNIQUE: 2D digital imaging was performed. COMPARISON: CR XR CHEST 2V PA LATERAL from 02/19/2020 FINDINGS: A port is in place over the left chest. The tip lies the lower SVC. HEART: Normal size. Aorta: Not dilated. PULMONARY VASCULATURE: Normal. LUNGS: Clear. PLEURAL SPACE: No pleural effusion or pneumothorax. BONE:Unremarkable for age. IMPRESSION: No acute abnormality. DATA REPOSITORY: RADIATION DOSE DELIVERED:
[2022-10-14] MEDS: Normal Saline - Diluent 50 ML VIAL IJ (10:57)
[2022-10-14] MEDS: Normal Saline Flush 10 ML SYR IVP (10:57)
--- NOTE | 2022-10-14 11:27 | DI.CT_ITS ---
Exam(s) CT ABDOMEN PELVIS W EXAM: CT ABDOMEN PELVIS W CLINICAL HISTORY: fever, abd pain n/v/d. TECHNIQUE: Imaging Protocol: Axial computed tomography images with coronal and sagittal reformatted images were created and reviewed CONTRAST MATERIAL: Intravenous: Omnipaque 350 Contrast volume:100 ml Oral: yes / no COMPARISON: CT CT ABDOMEN PELVIS W from 12/12/[address] CHEST PE CTA from 02/05/2020 CR XR CHEST 2V PA LATERAL from 10/14/2022 FINDINGS: ABDOMEN: Lung Bases: Linear scarring versus atelectasis. Liver: Normal density. No measurable mass. Gallbladder and biliary tract: No radiodense calculus or dilation. Pancreas: Normal density, no abnormal calcifications or inflammatory process. Spleen: Normal. Kidneys: Normal size, contour and axis. Stable prominent extrarenal pelves. No radiodense stones or obstructive uropathy. No suspicious masses seen. Adrenal glands: No masses seen. Vasculature: Abdominal aorta non-dilated. Calcifications noted distally. Celiac axis, SMA and MIRELLA appear patent. Portal vein and SMV unremarkable. Mildly prominent gonadal veins and pelvic veins. No evidence of thrombus. Soft tissues: Unremarkable. PELVIS: Bladder: No gross wall thickening. No calculi.No focal mass. Bowel: Fluid filled loops of small bowel mildly distended. Fluid also seen in cecum and ascending co ammy. No wall thickening or pneumatosis. No obstruction. No bowel wall thickening. Appendix normal . Peritoneal cavity: No ascites, collection or mesenteric inflammatory response. Bones: Unremarkable for age. Reproductive organs: Within normal limits. Lymph nodes: Unremarkable. IMPRESSION:: Small bowel is mildly distended and fluid-filled small which could represent an enterit is. No evidence of obstruction. RADIATION DOSE DELIVERED: 639.58mGy.cm Total DLP DATA REPOSITORY: All CT scans at this facility are submitted to the National Radiology Data Registry (NRDR) Dose Index Registry (DIR) with the [employer] (A[employer]). RADIATION OPTIMIZATION: All CT scans at this facility use at least one of these dose optimization te chniques: automated exposure control; mA and/or kV adjustment per patient size (includes targeted exa ms where dose is matched to clinical indication); or iterative reconstruction.
[2022-10-14] MEDS: Potassium Chloride 20 MEQ TABCR PO (12:03)
[2022-10-14 12:38] VITALS: BP 132/58; PULSE 68; RESP 16; TEMP 36.8; O2SAT 99
[2022-10-14] MEDS: Heparin 500 UNITS/5 ML SYRINGE IVP (12:40)
== END 2022-10-14 12:46 | disposition home or self-care (01) ==
PROVIDERS: Emergency Provider Nurse Practitioner Family; PCP Physician Assistant Medical
DX: K52.9 Noninfective gastroenteritis and colitis, unspecified (principal); R50.9 Fever, unspecified; E87.6 Hypokalemia; C50.911 Malignant neoplasm of unspecified site of right female breast
CPT/HCPCS: 36415; 80053; 83690; 84145; 87040; 87493; 87637; 96361; 96365; 96375; 99285; 71046; 74177; 81003; 81015; 83605; 83735; 85025; 87086; 99284; J0131

== ENCOUNTER 2022-11-10 04:47 | Outpatient (RCR) | payer MEDICARE, MEDICAID, SELFPAY ==
[2022-10-20] MEDS: Normal Saline Flush 10 ML SYR IVP (08:40)
[2022-10-20 09:37] LABS: ALT 23 U/L (14-59); AST 15 U/L (15-37); Alkaline Phosphatase 44 U/L (46-116); Anion Gap 7.3 mmol/L (3-11); BUN 13 mg/dL (7-18); Bilirubin, Total 0.3 mg/dL (0.2-1.0); CO2 29.7 mmol/L (21.0-32.0); CREATININE 0.6 mg/dL (0.55-1.02); Calcium 9.2 mg/dL (8.5-10.1); Chloride 104 mmol/L (98-107); Estimated GFR 99.55 (mL/min/1.73m2); Glucose 98 mg/dL (74-106); Potassium 3.8 mmol/L (3.5-5.1); Sodium 141 mmol/L (136-145)
[2022-10-20 13:57] LABS: Abs Immature Grans 0.01 10^3/uL (0.0-0.06); Absolute Basophil Count 0.03 10^3/uL (0.0-0.2); Absolute Eosinophil Count 0.06 10^3/uL (0.0-0.7); Absolute Monocyte Count 0.37 10^3/uL (0.1-0.8); Absolute Neutrophil Count 1.66 10^3/uL (1.2-6.7); Basophils % 0.9; Eosinophils % 1.8; HCT 33.6 % (36.0-46.0); HGB 10.9 g/dL (11.2-15.7); Immature Grans % 0.3; MCH 31.4 pg (27.0-33.0); MCHC 32.4 % (32.0-36.0); MCV 97 fL (80-95); MPV 9.3 fL (8.0-11.0); Monocytes % 11.1; Neutrophils % 49.9; Platelet Count 295 10^3/uL (130-400); RBC 3.47 10^6/uL (3.93-5.22); RDW 15.7 % (11.7-14.6); RDW-SD 54.1 fL; WBC 3.33 10^3/uL (4.4-10.8)
[2022-11-03] MEDS: Normal Saline Flush 10 ML SYR IVP (08:33)
[2022-11-03 08:38] LABS: HCT 35.4 % (36.0-46.0); HGB 11.6 g/dL (11.2-15.7); MCH 31.4 pg (27.0-33.0); MCHC 32.8 % (32.0-36.0); MCV 96 fL (80-95); MPV 8.9 fL (8.0-11.0); Platelet Count 347 10^3/uL (130-400); RBC 3.69 10^6/uL (3.93-5.22); RDW 15.8 % (11.7-14.6); WBC 4.72 10^3/uL (4.4-10.8)
[2022-11-03 08:57] LABS: ALT 22 U/L (14-59); AST 13 U/L (15-37); Albumin 4.1 g/dL (3.4-5.0); Alkaline Phosphatase 48 U/L (46-116); Anion Gap 9.6 mmol/L (3-11); BUN 14 mg/dL (7-18); Bilirubin, Total 0.3 mg/dL (0.2-1.0); CO2 27.4 mmol/L (21.0-32.0); CREATININE 0.6 mg/dL (0.55-1.02); Calcium 9.5 mg/dL (8.5-10.1); Chloride 102 mmol/L (98-107); Estimated GFR 99.55 (mL/min/1.73m2); Glucose 96 mg/dL (74-106); Potassium 3.9 mmol/L (3.5-5.1); Sodium 139 mmol/L (136-145); Total Protein 7.4 g/dL (6.4-8.2)
[2022-11-03 08:58] LABS: Absolute Eosinophil Count 0.09 10^3/uL (0.0-0.7); Absolute Lymphocyte Count 1.98 10^3/uL (1.2-3.4); Absolute Monocyte Count 0.05 10^3/uL (0.1-0.8); Atypical Lymphocytes % 3; Diff Comment Manual Differential; RBC Morphology Normal
[2022-11-10] MEDS: Normal Saline Flush 10 ML SYR IVP (07:37)
[2022-11-10 07:52] LABS: Abs Immature Grans 0.02 10^3/uL (0.0-0.06); Absolute Basophil Count 0.05 10^3/uL (0.0-0.2); Absolute Eosinophil Count 0.11 10^3/uL (0.0-0.7); Absolute Lymphocyte Count 1.87 10^3/uL (1.2-3.4); Absolute Monocyte Count 0.42 10^3/uL (0.1-0.8); Absolute Neutrophil Count 2.19 10^3/uL (1.2-6.7); Basophils % 1.1; Eosinophils % 2.4; HCT 36.1 % (36.0-46.0); HGB 11.9 g/dL (11.2-15.7); Immature Grans % 0.4; Lymphocytes % 40.1; MCH 31.8 pg (27.0-33.0); MCV 97 fL (80-95); MPV 9.1 fL (8.0-11.0); Platelet Count 318 10^3/uL (130-400); RBC 3.74 10^6/uL (3.93-5.22); RDW 15.4 % (11.7-14.6); RDW-SD 54.5 fL; WBC 4.66 10^3/uL (4.4-10.8)
[2022-11-10 08:08] LABS: ALT 22 U/L (14-59); AST 12 U/L (15-37); Albumin 4.1 g/dL (3.4-5.0); Alkaline Phosphatase 50 U/L (46-116); Anion Gap 9.1 mmol/L (3-11); BUN 14 mg/dL (7-18); Bilirubin, Total 0.3 mg/dL (0.2-1.0); CO2 26.9 mmol/L (21.0-32.0); CREATININE 0.6 mg/dL (0.55-1.02); Calcium 9.6 mg/dL (8.5-10.1); Chloride 103 mmol/L (98-107); Estimated GFR 99.55 (mL/min/1.73m2); Glucose 101 mg/dL (74-106); Potassium 3.9 mmol/L (3.5-5.1); Sodium 139 mmol/L (136-145); Total Protein 7.4 g/dL (6.4-8.2)
== END 2022-11-12 23:59 | disposition home or self-care (01) ==
LOC: INF 04:47
PROVIDERS: Physician Assistant; PCP Physician Assistant Medical; Visit Provider Internal Medicine Medical Oncology
DX: C50.511 Malignant neoplasm of lower-outer quadrant of right female breast (principal); Z17.1 Estrogen receptor negative status [ER-]; Z45.2 Encounter for adjustment and management of vascular access device
CPT/HCPCS: 36591; 80053; 85025

== ENCOUNTER 2022-12-13 02:31 | Outpatient (RCR) | payer MEDICARE, MEDICAID, SELFPAY ==
[2022-11-17] MEDS: Normal Saline Flush 10 ML SYR IVP (08:06)
[2022-11-17 08:34] LABS: Abs Immature Grans 0.02 10^3/uL (0.0-0.06); Absolute Basophil Count 0.05 10^3/uL (0.0-0.2); Absolute Eosinophil Count 0.07 10^3/uL (0.0-0.7); Absolute Lymphocyte Count 1.71 10^3/uL (1.2-3.4); Absolute Monocyte Count 0.36 10^3/uL (0.1-0.8); Absolute Neutrophil Count 2.47 10^3/uL (1.2-6.7); Basophils % 1.1; Eosinophils % 1.5; HCT 36.3 % (36.0-46.0); HGB 11.9 g/dL (11.2-15.7); Immature Grans % 0.4; Lymphocytes % 36.5; MCH 32.2 pg (27.0-33.0); MCHC 32.8 % (32.0-36.0); MCV 98 fL (80-95); MPV 9.7 fL (8.0-11.0); Monocytes % 7.7; Neutrophils % 52.8; Platelet Count 273 10^3/uL (130-400); RDW 15.6 % (11.7-14.6); RDW-SD 55.6 fL; WBC 4.68 10^3/uL (4.4-10.8)
[2022-11-17 08:51] LABS: ALT 18 U/L (14-59); AST 14 U/L (15-37); Alkaline Phosphatase 49 U/L (46-116); BUN 15 mg/dL (7-18); Bilirubin, Total 0.3 mg/dL (0.2-1.0); CREATININE 0.5 mg/dL (0.55-1.02); Calcium 9.5 mg/dL (8.5-10.1); Chloride 102 mmol/L (98-107); Estimated GFR 104.02 (mL/min/1.73m2); Glucose 102 mg/dL (74-106); Potassium 3.6 mmol/L (3.5-5.1); Sodium 138 mmol/L (136-145); Total Protein 7.4 g/dL (6.4-8.2)
[2022-12-13] MEDS: Normal Saline Flush 10 ML SYR IVP (11:54)
[2022-12-13 12:16] LABS: Abs Immature Grans 0.07 10^3/uL (0.0-0.06); Absolute Basophil Count 0.08 10^3/uL (0.0-0.2); Absolute Eosinophil Count 0.09 10^3/uL (0.0-0.7); Absolute Lymphocyte Count 1.31 10^3/uL (1.2-3.4); Absolute Monocyte Count 1.01 10^3/uL (0.1-0.8); Absolute Neutrophil Count 7.35 10^3/uL (1.2-6.7); Basophils % 0.8; Eosinophils % 0.9; HCT 36.2 % (36.0-46.0); HGB 11.8 g/dL (11.2-15.7); Immature Grans % 0.7; Lymphocytes % 13.2; MCH 32.4 pg (27.0-33.0); MCHC 32.6 % (32.0-36.0); MCV 100 fL (80-95); MPV 9.4 fL (8.0-11.0); Monocytes % 10.2; Neutrophils % 74.2; Platelet Count 393 10^3/uL (130-400); RBC 3.64 10^6/uL (3.93-5.22); RDW 14.7 % (11.7-14.6); RDW-SD 54.5 fL; WBC 9.91 10^3/uL (4.4-10.8)
[2022-12-13 12:39] LABS: ALT 22 U/L (14-59); AST 15 U/L (15-37); Alkaline Phosphatase 84 U/L (46-116); Anion Gap 9.9 mmol/L (3-11); BUN 14 mg/dL (7-18); Bilirubin, Total 0.2 mg/dL (0.2-1.0); CO2 26.1 mmol/L (21.0-32.0); CREATININE 0.6 mg/dL (0.55-1.02); Calcium 9.8 mg/dL (8.5-10.1); Chloride 103 mmol/L (98-107); Estimated GFR 99.55 (mL/min/1.73m2); FREE T4 0.94 ng/dL (0.76-1.46); Glucose 99 mg/dL (74-106); Potassium 3.9 mmol/L (3.5-5.1); Sodium 139 mmol/L (136-145); TSH 1.69 uIU/mL (0.36-3.74); Total Protein 7.4 g/dL (6.4-8.2)
== END 2022-12-13 23:59 | disposition home or self-care (01) ==
LOC: INF 02:31
PROVIDERS: PCP Physician Assistant Medical; Visit Provider Internal Medicine Medical Oncology
DX: Z92.89 Personal history of other medical treatment (principal); E03.2 Hypothyroidism due to medicaments and other exogenous substances; C50.511 Malignant neoplasm of lower-outer quadrant of right female breast; Z45.2 Encounter for adjustment and management of vascular access device
CPT/HCPCS: 36591; 80053; 84439; 84443; 85025

== ENCOUNTER 2023-01-03 02:53 | Outpatient (RCR) | payer MEDICARE, MEDICAID, SELFPAY ==
[2023-01-03] MEDS: Normal Saline Flush 10 ML SYR IVP (11:58)
[2023-01-03 12:04] LABS: Abs Immature Grans 0.06 10^3/uL (0.0-0.06); Absolute Basophil Count 0.09 10^3/uL (0.0-0.2); Absolute Eosinophil Count 0.04 10^3/uL (0.0-0.7); Absolute Lymphocyte Count 1.62 10^3/uL (1.2-3.4); Absolute Monocyte Count 1.05 10^3/uL (0.1-0.8); Basophils % 0.9; Eosinophils % 0.4; HCT 36.9 % (36.0-46.0); HGB 11.9 g/dL (11.2-15.7); Immature Grans % 0.6; Lymphocytes % 15.3; MCH 31.6 pg (27.0-33.0); MCHC 32.2 % (32.0-36.0); MCV 98 fL (80-95); MPV 9.5 fL (8.0-11.0); Monocytes % 9.9; Neutrophils % 72.9; Platelet Count 464 10^3/uL (130-400); RBC 3.76 10^6/uL (3.93-5.22); RDW 14.4 % (11.7-14.6); RDW-SD 51.8 fL; WBC 10.56 10^3/uL (4.4-10.8)
[2023-01-03 12:28] LABS: ALT 39 U/L (14-59); AST 27 U/L (15-37); Albumin 3.8 g/dL (3.4-5.0); Alkaline Phosphatase 94 U/L (46-116); Anion Gap 4.6 mmol/L (3-11); BUN 10 mg/dL (7-18); Bilirubin, Total 0.3 mg/dL (0.2-1.0); CO2 29.4 mmol/L (21.0-32.0); CREATININE 0.6 mg/dL (0.55-1.02); Calcium 9.6 mg/dL (8.5-10.1); Chloride 104 mmol/L (98-107); Estimated GFR 99.55 (mL/min/1.73m2); FREE T4 0.95 ng/dL (0.76-1.46); Glucose 100 mg/dL (74-106); Potassium 3.8 mmol/L (3.5-5.1); Sodium 138 mmol/L (136-145); TSH 1.39 uIU/mL (0.36-3.74); Total Protein 7.4 g/dL (6.4-8.2)
== END 2023-01-12 23:59 | disposition home or self-care (01) ==
LOC: INF 02:53
PROVIDERS: Internal Medicine Hematology & Oncology; PCP Physician Assistant Medical; Visit Provider Internal Medicine Medical Oncology
DX: C50.511 Malignant neoplasm of lower-outer quadrant of right female breast (principal); Z17.1 Estrogen receptor negative status [ER-]; E03.2 Hypothyroidism due to medicaments and other exogenous substances; Z92.89 Personal history of other medical treatment; Z45.2 Encounter for adjustment and management of vascular access device
CPT/HCPCS: 36591; 80053; 84439; 84443; 85025

== ENCOUNTER 2023-01-24 03:01 | Outpatient (RCR) | payer MEDICARE, MEDICAID, SELFPAY ==
[2023-01-24] MEDS: Normal Saline Flush 10 ML SYR IVP (08:03)
[2023-01-24 08:28] LABS: Abs Immature Grans 0.05 10^3/uL (0.0-0.06); Absolute Basophil Count 0.06 10^3/uL (0.0-0.2); Absolute Eosinophil Count 0.05 10^3/uL (0.0-0.7); Absolute Lymphocyte Count 1.21 10^3/uL (1.2-3.4); Absolute Monocyte Count 0.71 10^3/uL (0.1-0.8); Basophils % 0.7; Eosinophils % 0.6; HCT 38.4 % (36.0-46.0); HGB 12.6 g/dL (11.2-15.7); Immature Grans % 0.6; Lymphocytes % 14.3; MCH 32.1 pg (27.0-33.0); MCHC 32.8 % (32.0-36.0); MCV 98 fL (80-95); MPV 10.6 fL (8.0-11.0); Monocytes % 8.4; Neutrophils % 75.4; Platelet Count 321 10^3/uL (130-400); RBC 3.93 10^6/uL (3.93-5.22); RDW 14.6 % (11.7-14.6); WBC 8.48 10^3/uL (4.4-10.8)
[2023-01-24 08:51] LABS: ALT 34 U/L (14-59); AST 23 U/L (15-37); Alkaline Phosphatase 96 U/L (46-116); Anion Gap 9.7 mmol/L (3-11); BUN 11 mg/dL (7-18); Bilirubin, Total 0.2 mg/dL (0.2-1.0); CO2 26.3 mmol/L (21.0-32.0); CREATININE 0.6 mg/dL (0.55-1.02); Calcium 9.1 mg/dL (8.5-10.1); Chloride 105 mmol/L (98-107); Estimated GFR 99.55 (mL/min/1.73m2); FREE T4 0.85 ng/dL (0.76-1.46); Glucose 106 mg/dL (74-106); Potassium 3.7 mmol/L (3.5-5.1); Sodium 141 mmol/L (136-145); TSH 1.15 uIU/mL (0.36-3.74); Total Protein 7.2 g/dL (6.4-8.2)
== END 2023-02-12 23:59 | disposition home or self-care (01) ==
LOC: INF 03:01
PROVIDERS: PCP Physician Assistant Medical; Visit Provider Internal Medicine Medical Oncology
DX: Z92.89 Personal history of other medical treatment (principal); E03.2 Hypothyroidism due to medicaments and other exogenous substances; C50.511 Malignant neoplasm of lower-outer quadrant of right female breast; Z17.1 Estrogen receptor negative status [ER-]; Z45.2 Encounter for adjustment and management of vascular access device
CPT/HCPCS: 36591; 80053; 84439; 84443; 85025

== ENCOUNTER 2023-01-31 09:56 | Emergency (ER) | payer MEDICARE, MEDICAID, SELFPAY ==
[2023-01-31] VITALS (7 sets, daily range): BP systolic 107–143; BP diastolic 48–70; PULSE 66–80; RESP 15; TEMP 36.9; O2SAT 99
--- NOTE | 2023-01-31 10:17 | W.ED.GENAD ---
Discharge Plan Disposition Patient Disposition: Home Condition: Good Discharge Details Clinical Impression: Difficulty swallowing, Dry mouth Primary Care Provider: Stefany Moreno ED Provider: Eev Mcqueen Home Meds and New Rx's Prescriptions: Continued diazepam 5 mg tablet 5 mg PO TID PRN albuterol sulfate 2.5 mg /3 mL (0.083 %) solution for nebulization 1.25 mg IH Q4H PRN cholecalciferol (vitamin D3) 1,000 unit capsule 2,000 unit PO DAILY tiotropium bromide [Spiriva with HandiHaler] 18 mcg capsule, w/inhalation device 1 cap IH DAILY magnesium 250 mg tablet 250 mg PO DAILY naloxone [Narcan] 4 mg/actuation spray,non-aerosol 1 spray ANNAMARIA ONCE PRN trazodone 50 MG tablet 50 mg PO DAILY ibuprofen 600 mg tablet 600 mg PO TID PRN fluticasone propion-salmeterol [Advair HFA] 230-21 mcg/actuation HFA aerosol inhaler 2 puff inhalation BID alprazolam 1 mg tablet 0.5 - 1 mg PO BID PRN Patient Comments: TK 1/2-1 PO BID PRN docusate sodium [Colace] 100 mg Capsule 100 mg PO DAILY ipratropium-albuterol 0.5 mg-3 mg(2.5 mg base)/3 mL solution for nebulization 3 ml IH Q6H Qty: 90 0RF hydrocodone-acetaminophen 10-325 mg tablet 1 tab PO QID PRN PRN (Reason: Pain) Patient Comments: TK 1 T PO QID PRN FOR PAIN sennosides [senna] 8.6 mg Tablet 8.6 mg PO QHS ascorbic acid (vitamin C) [Vitamin C] 500 mg Tablet 500 mg PO DAILY albuterol sulfate 2.5 mg /3 mL (0.083 %) Solution For Nebulization 2.5 mg UPD Q2H PRN PRNQty: 75 0RF omeprazole 20 mg capsule,delayed release(DR/EC) 20 mg PO DAILY PRN (Reason: nausea) Patient Comments: TAKE 1 CAPSULE BY MOUTH EVERY DAY prochlorperazine maleate 10 mg tablet 10 mg PO Q6H PRN (Reason: nausea and vomiting) Patient Comments: TAKE 1 TABLET BY MOUTH EVERY 6 HOURS NEEDED FOR NAUSEA Discharge Instructions Instructions: Dry Mouth (ED) Additional Instructions: Your labs are reassuring here today. Your ANC is normal, liver is functioning well. I am concerned that your dry mouth is a side effect of your medication. Your oncology team feels that these symptoms, if associated with your chemo, will resolve in the first week of February. Until then, medications that help to moisten your mouth, such as Biotene, can help with symptomatic management. Please keep your upcoming appointment. If you develop fevers/chills, have breakdown of the skin or mucous membranes of your mouth, please come back emergently. I have spoke with your pharmacy, they recommend Biotene but are available with questions or pricing concerns. Referrals: Stefany Moreno PA [Primary Care Provider] - Discharge Data Discharge Date/Time-TO BE ENTERED AT DEPARTURE: 01/31/23 12:24 Medical Decision Making Patient is a pleasant 67-year-old female presenting today with chief complaint of dry mouth and lesions in her mouth. Patient's past medical history is significant for breast cancer for which she is currently undergoing chemotherapy. She has scheduled mastectomy in February. She reports her symptoms began initially about 3 weeks ago. Was treated with oral fluconazole for thrush by her oncology team 1 week ago. Received her last dose of chemo 1 week ago. Is also on supportive immunologic therapies. Last had her counts checked a week ago. She denies any fevers or chills. States that her mouth is so dry that she is now having trouble swallowing and has to swallow with water. Is not actually having pain with this though. No change in her appetite or other systemic symptoms. She was concerned that she felt she saw a spot this morning on her tongue and on the left side of her inner cheek. On exam, patient appears chronically ill, thin. Hemodynamically stable. Her lungs are clear in all negrete. Not appreciate any lesions or evidence of thrush on my exam. She does have 1 small dot that appears more petechial in nature than black. She reports that her liver function tests have been normal up until this point. We did review her labs that were last obtained 01/24/2023. At that time, her ANC was 6.4. LFTs were all within normal limits. She not having any easy bruising or bleeding elsewhere. Patient reports that she did not this after coffee and with her son are substantially dry mouth, it may have been discoloration from this. She does report that her chemo regimen can cause dry mouth which may be precipitating this. No sloughing or mucositis. Consulted with her oncologist. Advised that a new inhaler may also be contributing. Patient reports that she did revert back to her previous inhaler with PCP assistance and that despite this the dry mouth has been persisting. The oncology team also recommended that it could be associated with her chemotherapeutic agents which should be out of her system the first week in February as that was her last dosing. They did feel comfortable with the patient beginning on supplements such as Biotene. She did recommend, particularly given the small petechial lesion, to obtain CBC with differential to evaluate for platelets, ANC and will also obtain a CMP to evaluate LFTs. Labs concerning for hypokalemia, patient reports that she does not supplement this at home and she can increase this. Declines any p.o. potassium here. She we will begin Biotene, I called her pharmacy and we discussed cost as well as availability. They are planning on seeing the patient as well to assist with any questions she may have on the cervical Medication. Strict return precautions were discussed. Encouraged hydration. She will keep her upcoming appointments. All of her questions and concerns were addressed and she is in agreement this HPI General Date/Time Provider Initiated Documentation: 01/31/23 10:17. Limitations to Documentation: no limitations. Information obtained by: patient and RN notes reviewed. History of Present Illness 67 year old F presents to the emergency department with the chief complaint of dry mouth and difficulty swallowing with dry throat, described as moderate and similar to prior episodes (has been ongoing for a few weeks, continues to progress), and is localized to the mouth and neck. Patient started experiencing this week(s) and it has been constant. No relieving factors improve symptom(s), Medication worsens symptoms . Patient notes no other symptoms.; denies chest pain, cough, diaphoresis, fever/chills, loss of appetite, malaise, nausea/vomiting and shortness of breath. Patient did receive the following treatments prior to arrival, other (fluconazole) Related Data Home Medications Medication Instructions Recorded Confirmed trazodone 50 mg tablet 50 mg PO DAILY 03/13/13 01/31/23 albuterol sulfate 2.5 mg/3 mL 1.25 mg inhalation Q4H PRN 12/12/17 01/31/23 (0.083 %) solution for nebulization cholecalciferol (vitamin D3) 25 2,000 unit PO DAILY 12/12/17 01/31/23 mcg (1,000 unit) capsule magnesium 250 mg tablet 250 mg PO DAILY 12/12/17 01/31/23 naloxone 4 mg/actuation nasal 1 spray intranasal ONCE PRN 12/12/17 01/31/23 spray (Narcan) tiotropium bromide 18 mcg capsule 1 cap inhalation DAILY 12/12/17 01/31/23 with inhalation device (Spiriva with HandiHaler) alprazolam 1 mg tablet 0.5 - 1 mg PO BID PRN 01/30/20 01/31/23 docusate sodium 100 mg capsule 100 mg PO DAILY 01/30/20 01/31/23 (Colace) ipratropium 0.5 mg-albuterol 3 mg 3 ml inhalation Q6H #90 mL 01/30/20 01/31/23 (2.5 mg base)/3 mL nebulization soln ascorbic acid (vitamin C) 500 mg 500 mg PO DAILY 02/06/20 01/31/23 tablet (Vitamin C) hydrocodone 10 mg-acetaminophen 1 tab PO QID PRN PRN Pain 02/06/20 01/31/23 325 mg tablet sennosides 8.6 mg tablet (senna) 8.6 mg PO QHS 02/06/20 01/31/23 albuterol sulfate 2.5 mg/3 mL 2.5 mg (3 mL) UPD Q2H PRN PRN #75 02/07/20 01/31/23 (0.083 %) solution for nebulization mL fluticasone propionate 230 2 puff inhalation BID 06/30/20 01/31/23 mcg-salmeterol 21 mcg/actuation HFA inhaler (Advair HFA) ibuprofen 600 mg tablet 600 mg PO TID PRN 06/30/20 01/31/23 diazepam 5 mg tablet 5 mg PO TID PRN 06/28/21 01/31/23 omeprazole 20 mg capsule,delayed 20 mg PO DAILY PRN nausea 01/31/23 01/31/23 release prochlorperazine maleate 10 mg 10 mg PO Q6H PRN nausea and 01/31/23 01/31/23 tablet vomiting Previous Rx's Medication Instructions Recorded ipratropium 0.5 mg-albuterol 3 mg 3 ml inhalation Q6H #90 mL 01/30/20 (2.5 mg base)/3 mL nebulization soln albuterol sulfate 2.5 mg/3 mL 2.5 mg (3 mL) UPD Q2H PRN PRN #75 02/07/20 (0.083 %) solution for nebulization mL Allergies Allergy/AdvReac Type Severity Reaction Status Date / Time cyproheptadine Allergy Mild unknown Verified 01/31/23 10:13 fluoxetine Allergy Mild unknown Verified 01/31/23 10:13 ketorolac Allergy Mild unknown Verified 01/31/23 10:13 morphine [From MS Contin] Allergy Mild unknown Verified 01/31/23 10:13 tramadol Allergy Mild unknown Verified 01/31/23 10:13 General Stated Complaint: RespSymp ENRRIQUE: 3 Review of Systems Constitutional Constitutional: Reports as per HPI and Denies headache(s) Eyes Eyes: Reports as per HPI, Denies eye discharge and Denies irritation ENT Ears, Nose, Mouth, and Throat: Reports as per HPI and Denies headache(s) Cardiovascular Cardiovascular: Reports as per HPI, Denies chest pain and Denies dyspnea Respiratory Respiratory: Reports as per HPI and Denies dyspnea Gastrointestinal Gastrointestinal: Reports as per HPI, Denies nausea and Denies vomiting Integumentary/Breasts Skin/Breast: Reports as per HPI and Denies rash Neurologic Neurologic: Reports as per HPI and Denies headache(s) PFSH All Active Problems Dry mouth (Acute) Difficulty swallowing (Acute) Invasive ductal carcinoma of right breast in female (Acute) triple negative with positive lymph node COVID-19 (Acute) Vitamin D deficiency (Acute) Constipation (Acute) COPD (chronic obstructive pulmonary disease) (Chronic) Xerostomia (Acute) Sinus congestion (Acute) Dyspnea (Acute) Upper abdominal pain (Acute) History of nicotine vaping (Acute) Acute bronchitis (Acute) Discharge planning issues (Acute) DVT prophylaxis (Acute) Environmental allergies (Acute) GERD (gastroesophageal reflux disease) (Chronic) Anxiety (Chronic) COPD exacerbation (Acute) Fibromyalgia muscle pain (Acute 03/13/13) Tobacco use (Acute 03/13/13) Medical History Abdominal pain Abnormal Pap history Remote history of 20-30yrs ago / Dx ? Tx Paps and HPV negative since then Anorexia Past history no problems for many years Chronic pain Chronic pharyngitis Cough Depression Disc degeneration Elevated amylase Fibromyalgia Hx of squamous cell carcinoma of skin Primary fibromyalgia syndrome PTSD (post-traumatic stress disorder) Seasonal allergic rhinitis Squamous cell carcinoma in situ of skin Stress at home Surgical History Appendectomy 1977 Bilateral thumb surgeries for arthritis 2013 Biopsy, Soft Tissue (03/13/17) right torso - squamous cell carcinoma in situ, margins negative, but close H/O abdominal surgery multiple abdominal surgeries to fixed a nicked bowel Ligation of fallopian tube R shoulder rotator cuff 2012 Release bowel adhesions Family History Mother Hypertension Other Heart disease Social History Smoking/Tobacco Use Status: Former Tobacco Use tobacco type: cigarettes and e-cigarettes Tobacco: How many years used: 25 Smoking risk assessment performed?: Yes Alcohol Intake: never Drug use: Never Substance use type: does not use Housing: house Do you feel safe at home: Yes Exam Const General: cooperative, comfortable, no acute distress, well developed, well groomed, frail appearing and ill appearing chronically Nutritional Appearance: average body habitus and well nourished Orientation: alert and awake [facility] Head: normal to inspection, normocephalic and atraumatic Ears: hearing grossly normal bilaterally, external ears normal and TM's normal bilaterally General nose exam: external nose normal and nares normal Face and sinus: normal facial exam, sinuses nontender and face symmetric Mouth: lip normal, tongue normal, oropharynx normal, mucous membranes dry (very dry) and other (one small petechial lesion left buccal surface) Teeth and gingiva: dentition normal Throat: posterior oropharynx normal, tonsils normal and uvula midline Eyes General: appearance normal, both eyes and all related structures Neck Neck: normal visual inspection, full ROM and no lymphadenopathy Resp Effort & Inspection: normal respiratory effort, able to speak in complete sentences and no respiratory distress Auscultation: clear to auscultation bilaterally, no rales, no rhonchi and no wheezes Cardio Rate: regular rate Rhythm: regular rhythm Heart Sounds: S1 normal and S2 normal Skin General skin exam: no rashes or lesions noted Neuro General: patient alert and patient awake Cognition: normal cognition Speech: speech normal Gait: normal gait Psych Appearance: grossly normal and well kempt Mental Status: mental status grossly normal Speech and Movement: speech and movement normal Course Vital Signs Vital signs: Vital Signs Temperature 36.9 C 01/31/23 10:02 Pulse 80 01/31/23 10:02 Respiratory Rate 15 01/31/23 10:02 Blood Pressure 107/48 L 01/31/23 10:02 Pulse Oximetry 99 01/31/23 10:02 Temperature 36.9 C 01/31/23 10:02 Temperature Source Tympanic 01/31/23 10:02 Pulse 80 01/31/23 10:02 Respiratory Rate 15 01/31/23 10:02 Blood Pressure 107/48 L 01/31/23 10:02 Blood Pressure Position Sitting 01/31/23 10:02 Pulse Oximetry 99 01/31/23 10:02 Oxygen Delivery Method Room Air 01/31/23 10:02 Oxygen Flow Rate 0 01/31/23 10:02 Pain Level 0 01/31/23 10:02 Lab/Test Results Lab/Test Results: 01/31/23 10:00 Tonsil - Not Specified Group A Streptococcus Culture - Pending POC Strep Test-ECTOR(Rapid) Start: 01/31/23 10:10 Freq: .Rapid Strep Test Status: Active Protocol: Document 01/31/23 10:11 KAT (Rec: 01/31/23 10:11 KAT [id number]) Strep test-ECTOR(Rapid)-POC POC-Strep test-ECTOR (Rapid) Negative POC-Strep test-ECTOR (Rapid) Negative
--- NOTE | 2023-01-31 10:52 | NUR.NOTE ---
Accessed pt [facility] chart for Eve Richar for her chemo regimen. Nursing Note:
[2023-01-31 11:38] LABS: HCT 34.8 % (36.0-46.0); HGB 11.1 g/dL (11.2-15.7); MCHC 31.9 % (32.0-36.0); MCV 100 fL (80-95); MPV 9.5 fL (8.0-11.0); Platelet Count 222 10^3/uL (130-400); RBC 3.47 10^6/uL (3.93-5.22); RDW 14.6 % (11.7-14.6); RDW-SD 54.2 fL; WBC 10.05 10^3/uL (4.4-10.8)
[2023-01-31 11:55] LABS: ALT 19 U/L (14-59); AST 12 U/L (15-37); Alkaline Phosphatase 133 U/L (46-116); Anion Gap 8.8 mmol/L (3-11); BUN 10 mg/dL (7-18); Bilirubin, Total 0.4 mg/dL (0.2-1.0); CO2 27.2 mmol/L (21.0-32.0); CREATININE 0.5 mg/dL (0.55-1.02); Calcium 9.3 mg/dL (8.5-10.1); Chloride 105 mmol/L (98-107); Estimated GFR 104.02 (mL/min/1.73m2); Glucose 87 mg/dL (74-106); Potassium 3.1 mmol/L (3.5-5.1); Sodium 141 mmol/L (136-145); Total Protein 7.2 g/dL (6.4-8.2)
[2023-01-31 12:00] LABS: Absolute Neutrophil Count 8.74 10^3/uL (1.2-6.7); Atypical Lymphocytes % 1; Bands % 6; Diff Comment Manual Differential; RBC Morphology Normal
== END 2023-01-31 12:24 | disposition home or self-care (01) ==
PROVIDERS: Emergency Provider Physician Assistant; PCP Physician Assistant Medical
DX: J02.9 Acute pharyngitis, unspecified (principal); R68.2 Dry mouth, unspecified; R13.10 Dysphagia, unspecified
CPT/HCPCS: 80053; 87880; 99283; 85025; 87081; 99282

== ENCOUNTER 2023-03-21 03:37 | Outpatient (RCR) | payer MEDICARE, MEDICAID, SELFPAY ==
[2023-03-21 08:52] LABS: Abs Immature Grans 0.01 10^3/uL (0.0-0.06); Absolute Basophil Count 0.02 10^3/uL (0.0-0.2); Absolute Eosinophil Count 0.21 10^3/uL (0.0-0.7); Absolute Monocyte Count 0.37 10^3/uL (0.1-0.8); Absolute Neutrophil Count 3.17 10^3/uL (1.2-6.7); Basophils % 0.4; Eosinophils % 4.2; HGB 11.8 g/dL (11.2-15.7); Immature Grans % 0.2; Lymphocytes % 24.1; MCH 31.6 pg (27.0-33.0); MCHC 32.8 % (32.0-36.0); MCV 96 fL (80-95); MPV 8.7 fL (8.0-11.0); Monocytes % 7.4; Neutrophils % 63.7; Platelet Count 269 10^3/uL (130-400); RBC 3.74 10^6/uL (3.93-5.22); RDW 13.2 % (11.7-14.6); RDW-SD 47.5 fL; WBC 4.98 10^3/uL (4.4-10.8)
[2023-03-21] MEDS: Normal Saline Flush 10 ML SYR IVP (09:10)
[2023-03-21 09:14] LABS: ALT 24 U/L (14-59); AST 16 U/L (15-37); Alkaline Phosphatase 49 U/L (46-116); Anion Gap 10.2 mmol/L (3-11); BUN 9 mg/dL (7-18); Bilirubin, Total 0.3 mg/dL (0.2-1.0); CO2 27.8 mmol/L (21.0-32.0); CREATININE 0.5 mg/dL (0.55-1.02); Calcium 9.2 mg/dL (8.5-10.1); Chloride 104 mmol/L (98-107); Estimated GFR 104.02 (mL/min/1.73m2); FREE T4 0.91 ng/dL (0.76-1.46); Glucose 108 mg/dL (74-106); Potassium 3.7 mmol/L (3.5-5.1); Sodium 142 mmol/L (136-145); TSH 1.33 uIU/mL (0.36-3.74)
== END 2023-04-13 23:59 | disposition home or self-care (01) ==
LOC: INF 03:37
PROVIDERS: PCP Physician Assistant Medical; Visit Provider Internal Medicine Medical Oncology
DX: E03.2 Hypothyroidism due to medicaments and other exogenous substances; C50.511 Malignant neoplasm of lower-outer quadrant of right female breast; Z17.1 Estrogen receptor negative status [ER-]; Z45.2 Encounter for adjustment and management of vascular access device
CPT/HCPCS: 36591; 80053; 84439; 84443; 85025

== ENCOUNTER 2023-05-02 04:28 | Outpatient (RCR) | payer MEDICARE, MEDICAID, SELFPAY ==
[2023-05-02] MEDS: Normal Saline Flush 10 ML SYR IVP (13:34)
[2023-05-02 13:54] LABS: Abs Immature Grans 0.01 10^3/uL (0.0-0.06); Absolute Basophil Count 0.03 10^3/uL (0.0-0.2); Absolute Eosinophil Count 0.07 10^3/uL (0.0-0.7); Absolute Lymphocyte Count 1.17 10^3/uL (1.2-3.4); Absolute Monocyte Count 0.37 10^3/uL (0.1-0.8); Absolute Neutrophil Count 2.85 10^3/uL (1.2-6.7); Basophils % 0.7; Eosinophils % 1.6; HCT 40.9 % (36.0-46.0); HGB 13.4 g/dL (11.2-15.7); Immature Grans % 0.2; MCH 31.2 pg (27.0-33.0); MCHC 32.8 % (32.0-36.0); MCV 95 fL (80-95); MPV 9.1 fL (8.0-11.0); Monocytes % 8.2; Neutrophils % 63.3; Platelet Count 226 10^3/uL (130-400); RDW 11.9 % (11.7-14.6); RDW-SD 41.8 fL
[2023-05-02 14:16] LABS: ALT 20 U/L (14-59); AST 14 U/L (15-37); Alkaline Phosphatase 62 U/L (46-116); Anion Gap 9.6 mmol/L (3-11); BUN 11 mg/dL (7-18); Bilirubin, Total 0.3 mg/dL (0.2-1.0); CO2 27.4 mmol/L (21.0-32.0); CREATININE 0.5 mg/dL (0.55-1.02); Calcium 9.1 mg/dL (8.5-10.1); Chloride 105 mmol/L (98-107); Estimated GFR 104.02 (mL/min/1.73m2); FREE T4 0.88 ng/dL (0.76-1.46); Glucose 95 mg/dL (74-106); Potassium 3.6 mmol/L (3.5-5.1); Sodium 142 mmol/L (136-145); Total Protein 7.1 g/dL (6.4-8.2)
== END 2023-05-14 23:59 | disposition home or self-care (01) ==
LOC: INF 04:28
PROVIDERS: Physician Assistant; PCP Physician Assistant Medical; Visit Provider Internal Medicine Medical Oncology
DX: C50.511 Malignant neoplasm of lower-outer quadrant of right female breast (principal); Z17.1 Estrogen receptor negative status [ER-]; Z45.2 Encounter for adjustment and management of vascular access device
CPT/HCPCS: 36591; 80053; 84439; 84443; 85025

== ENCOUNTER 2023-06-13 05:30 | Outpatient (RCR) | payer MEDICARE, MEDICAID, SELFPAY ==
[2023-05-23] MEDS: Normal Saline Flush 10 ML SYR IVP (08:12)
[2023-05-23 08:32] LABS: Abs Immature Grans 0.02 10^3/uL (0.0-0.06); Absolute Basophil Count 0.04 10^3/uL (0.0-0.2); Absolute Eosinophil Count 0.13 10^3/uL (0.0-0.7); Absolute Lymphocyte Count 0.77 10^3/uL (1.2-3.4); Absolute Monocyte Count 0.51 10^3/uL (0.1-0.8); Absolute Neutrophil Count 3.56 10^3/uL (1.2-6.7); Basophils % 0.8; Eosinophils % 2.6; HCT 41.3 % (36.0-46.0); HGB 13.5 g/dL (11.2-15.7); Immature Grans % 0.4; Lymphocytes % 15.3; MCH 30.6 pg (27.0-33.0); MCHC 32.7 % (32.0-36.0); MCV 94 fL (80-95); Monocytes % 10.1; Neutrophils % 70.8; Platelet Count 193 10^3/uL (130-400); RBC 4.41 10^6/uL (3.93-5.22); RDW 12.3 % (11.7-14.6); RDW-SD 42.3 fL; WBC 5.03 10^3/uL (4.4-10.8)
[2023-05-23 09:03] LABS: ALT 27 U/L (14-59); AST 18 U/L (15-37); Alkaline Phosphatase 67 U/L (46-116); Anion Gap 7.6 mmol/L (3-11); BUN 13 mg/dL (7-18); Bilirubin, Total 0.3 mg/dL (0.2-1.0); CO2 28.4 mmol/L (21.0-32.0); CREATININE 0.5 mg/dL (0.55-1.02); Calcium 8.9 mg/dL (8.5-10.1); Chloride 106 mmol/L (98-107); Estimated GFR 104.02 (mL/min/1.73m2); FREE T4 0.88 ng/dL (0.76-1.46); Glucose 102 mg/dL (74-106); Potassium 3.7 mmol/L (3.5-5.1); Sodium 142 mmol/L (136-145); TSH 1.53 uIU/Ml (0.36-3.74); Total Protein 7.2 g/dL (6.4-8.2)
[2023-06-13] MEDS: Normal Saline Flush 10 ML SYR IVP (08:12)
[2023-06-13 08:33] LABS: Abs Immature Grans 0.02 10^3/uL (0.0-0.06); Absolute Basophil Count 0.03 10^3/uL (0.0-0.2); Absolute Eosinophil Count 0.11 10^3/uL (0.0-0.7); Absolute Lymphocyte Count 1.02 10^3/uL (1.2-3.4); Absolute Neutrophil Count 3.84 10^3/uL (1.2-6.7); Basophils % 0.5; HCT 39.4 % (36.0-46.0); Immature Grans % 0.4; Lymphocytes % 18.5; MCV 91 fL (80-95); MPV 9.4 fL (8.0-11.0); Monocytes % 9.1; Neutrophils % 69.5; Platelet Count 232 10^3/uL (130-400); RBC 4.33 10^6/uL (3.93-5.22); RDW 12.8 % (11.7-14.6); RDW-SD 42.5 fL; WBC 5.52 10^3/uL (4.4-10.8)
[2023-06-13 09:09] LABS: ALT 26 U/L (14-59); AST 17 U/L (15-37); Alkaline Phosphatase 79 U/L (46-116); Anion Gap 8.6 mmol/L (3-11); BUN 12 mg/dL (7-18); Bilirubin, Total 0.3 mg/dL (0.2-1.0); CO2 28.4 mmol/L (21.0-32.0); CREATININE 0.5 mg/dL (0.55-1.02); Chloride 106 mmol/L (98-107); Estimated GFR 104.02 (mL/min/1.73m2); FREE T4 0.86 ng/dL (0.76-1.46); Glucose 109 mg/dL (74-106); Potassium 3.7 mmol/L (3.5-5.1); Sodium 143 mmol/L (136-145); TSH 1.13 uIU/Ml (0.36-3.74); Total Protein 7.2 g/dL (6.4-8.2)
== END 2023-06-13 23:59 | disposition home or self-care (01) ==
LOC: INF 05:30
PROVIDERS: Physician Assistant; PCP Physician Assistant Medical; Visit Provider Internal Medicine Medical Oncology
DX: Z92.89 Personal history of other medical treatment (principal); E03.2 Hypothyroidism due to medicaments and other exogenous substances; C50.511 Malignant neoplasm of lower-outer quadrant of right female breast; Z17.1 Estrogen receptor negative status [ER-]; Z45.2 Encounter for adjustment and management of vascular access device
CPT/HCPCS: 36591; 80053; 84439; 84443; 85025

== ENCOUNTER 2023-07-04 04:58 | Outpatient (RCR) | payer MEDICARE, MEDICAID, SELFPAY ==
[2023-07-04] MEDS: Normal Saline Flush 10 ML SYR IVP (07:58)
[2023-07-04 08:24] LABS: Abs Immature Grans 0.02 10^3/uL (0.0-0.06); Absolute Basophil Count 0.03 10^3/uL (0.0-0.2); Absolute Eosinophil Count 0.17 10^3/uL (0.0-0.7); Absolute Lymphocyte Count 0.88 10^3/uL (1.2-3.4); Absolute Monocyte Count 0.56 10^3/uL (0.1-0.8); Absolute Neutrophil Count 4.21 10^3/uL (1.2-6.7); Basophils % 0.5 %; Eosinophils % 2.9 %; HCT 37.3 % (36.0-46.0); HGB 12.5 g/dL (11.2-15.7); Immature Grans % 0.3 %; MCH 30.5 pg (27.0-33.0); MCHC 33.5 % (32.0-36.0); MCV 91 fL (80-95); MPV 9.4 fL (8.0-11.0); Monocytes % 9.5 %; Neutrophils % 71.8 %; Platelet Count 229 10^3/uL (130-400); RDW 13.2 % (11.7-14.6); RDW-SD 44.1 fL; WBC 5.87 10^3/uL (4.4-10.8)
[2023-07-04 08:49] LABS: ALT 26 U/L (14-59); AST 15 U/L (15-37); Albumin 3.7 g/dL (3.4-5.0); Alkaline Phosphatase 72 U/L (46-116); Anion Gap 6.4 mmol/L (3-11); BUN 11 mg/dL (7-18); Bilirubin, Total 0.5 mg/dL (0.2-1.0); CO2 28.6 mmol/L (21.0-32.0); CREATININE 0.5 mg/dL (0.55-1.02); Calcium 8.9 mg/dL (8.5-10.1); Chloride 106 mmol/L (98-107); Estimated GFR 104.02 (mL/min/1.73m2); FREE T4 0.86 ng/dL (0.76-1.46); Glucose 101 mg/dL (74-106); Sodium 141 mmol/L (136-145); TSH 1.25 uIU/Ml (0.36-3.74); Total Protein 6.8 g/dL (6.4-8.2)
== END 2023-07-14 23:59 | disposition home or self-care (01) ==
LOC: INF 04:58
PROVIDERS: Internal Medicine Hematology & Oncology; PCP Physician Assistant Medical; Visit Provider Internal Medicine Medical Oncology
DX: E03.2 Hypothyroidism due to medicaments and other exogenous substances (principal); C50.511 Malignant neoplasm of lower-outer quadrant of right female breast; Z45.2 Encounter for adjustment and management of vascular access device
CPT/HCPCS: 36591; 80053; 84439; 84443; 85025

== ENCOUNTER 2023-07-25 04:59 | Outpatient (RCR) | payer MEDICARE, MEDICAID, SELFPAY ==
[2023-07-25] MEDS: Normal Saline Flush 10 ML SYR IVP (08:13)
[2023-07-25 08:43] LABS: Abs Immature Grans 0.03 10^3/uL (0.0-0.06); Absolute Basophil Count 0.04 10^3/uL (0.0-0.2); Absolute Eosinophil Count 0.19 10^3/uL (0.0-0.7); Absolute Lymphocyte Count 0.97 10^3/uL (1.2-3.4); Absolute Monocyte Count 0.54 10^3/uL (0.1-0.8); Absolute Neutrophil Count 4.17 10^3/uL (1.2-6.7); Basophils % 0.7 %; Eosinophils % 3.2 %; HCT 36.8 % (36.0-46.0); HGB 12.2 g/dL (11.2-15.7); Immature Grans % 0.5 %; Lymphocytes % 16.3 %; MCH 30.2 pg (27.0-33.0); MCHC 33.2 % (32.0-36.0); MCV 91 fL (80-95); MPV 9.1 fL (8.0-11.0); Monocytes % 9.1 %; Neutrophils % 70.2 %; Platelet Count 295 10^3/uL (130-400); RBC 4.04 10^6/uL (3.93-5.22); RDW 13.3 % (11.7-14.6); RDW-SD 44.5 fL; WBC 5.94 10^3/uL (4.4-10.8)
[2023-07-25 09:06] LABS: ALT 25 U/L (14-59); AST 16 U/L (15-37); Albumin 3.7 g/dL (3.4-5.0); Alkaline Phosphatase 73 U/L (46-116); Anion Gap 8.4 mmol/L (3-11); BUN 12 mg/dL (7-18); Bilirubin, Total 0.4 mg/dL (0.2-1.0); CO2 27.6 mmol/L (21.0-32.0); CREATININE 0.6 mg/dL (0.55-1.02); Chloride 105 mmol/L (98-107); Estimated GFR 99.55 (mL/min/1.73m2); FREE T4 0.91 ng/dL (0.76-1.46); Glucose 101 mg/dL (74-106); Potassium 3.8 mmol/L (3.5-5.1); Sodium 141 mmol/L (136-145); TSH 1.46 uIU/Ml (0.36-3.74); Total Protein 6.9 g/dL (6.4-8.2)
== END 2023-08-13 23:59 | disposition home or self-care (01) ==
LOC: INF 04:59
PROVIDERS: Physician Assistant; PCP Physician Assistant Medical; Visit Provider Internal Medicine Medical Oncology
DX: C50.511 Malignant neoplasm of lower-outer quadrant of right female breast (principal); Z17.1 Estrogen receptor negative status [ER-]; Z79.899 Other long term (current) drug therapy; Z45.2 Encounter for adjustment and management of vascular access device
CPT/HCPCS: 36591; 80053; 84439; 84443; 85025

== ENCOUNTER 2023-09-05 01:17 | Outpatient (RCR) | payer MEDICARE, MEDICAID, SELFPAY ==
[2023-08-15] MEDS: Normal Saline Flush 10 ML SYR IVP (08:08)
[2023-08-15 08:34] LABS: Abs Immature Grans 0.02 10^3/uL (0.0-0.06); Absolute Basophil Count 0.05 10^3/uL (0.0-0.2); Absolute Eosinophil Count 0.15 10^3/uL (0.0-0.7); Absolute Lymphocyte Count 0.95 10^3/uL (1.2-3.4); Absolute Monocyte Count 0.56 10^3/uL (0.1-0.8); Absolute Neutrophil Count 4.94 10^3/uL (1.2-6.7); Basophils % 0.7 %; Eosinophils % 2.2 %; HCT 37.7 % (36.0-46.0); HGB 12.5 g/dL (11.2-15.7); Immature Grans % 0.3 %; Lymphocytes % 14.2 %; MCH 30.7 pg (27.0-33.0); MCHC 33.2 % (32.0-36.0); MCV 93 fL (80-95); MPV 9.2 fL (8.0-11.0); Monocytes % 8.4 %; Neutrophils % 74.2 %; Platelet Count 262 10^3/uL (130-400); RBC 4.07 10^6/uL (3.93-5.22); RDW 13.2 % (11.7-14.6); RDW-SD 45.1 fL; WBC 6.67 10^3/uL (4.4-10.8)
[2023-08-15 08:56] LABS: ALT 26 U/L (14-59); AST 17 U/L (15-37); Albumin 3.9 g/dL (3.4-5.0); Alkaline Phosphatase 65 U/L (46-116); Anion Gap 6.8 mmol/L (3-11); BUN 13 mg/dL (7-18); Bilirubin, Total 0.33 mg/dL (0.2-1.0); CO2 28.2 mmol/L (21.0-32.0); CREATININE 0.6 mg/dL (0.55-1.02); Calcium 9.1 mg/dL (8.5-10.1); Chloride 105 mmol/L (98-107); Estimated GFR 99.55 (mL/min/1.73m2); FREE T4 0.99 ng/dL (0.76-1.46); Glucose 102 mg/dL (74-106); Potassium 3.9 mmol/L (3.5-5.1); Sodium 140 mmol/L (136-145); TSH 1.31 uIU/Ml (0.36-3.74); Total Protein 6.8 g/dL (6.4-8.2)
[2023-08-15 11:24] LABS: Vitamin D 25 Total 29.8 ng/mL (30-100)
[2023-09-05] MEDS: Normal Saline Flush 10 ML SYR IVP (08:12)
[2023-09-05 08:50] LABS: Abs Immature Grans 0.03 10^3/uL (0.0-0.06); Absolute Basophil Count 0.04 10^3/uL (0.0-0.2); Absolute Eosinophil Count 0.14 10^3/uL (0.0-0.7); Absolute Lymphocyte Count 1.02 10^3/uL (1.2-3.4); Absolute Monocyte Count 0.47 10^3/uL (0.1-0.8); Absolute Neutrophil Count 4.16 10^3/uL (1.2-6.7); Basophils % 0.7 %; Eosinophils % 2.4 %; HCT 39.8 % (36.0-46.0); HGB 12.8 g/dL (11.2-15.7); Immature Grans % 0.5 %; Lymphocytes % 17.4 %; MCH 30.3 pg (27.0-33.0); MCHC 32.2 % (32.0-36.0); MCV 94 fL (80-95); MPV 9.2 fL (8.0-11.0); Platelet Count 225 10^3/uL (130-400); RBC 4.23 10^6/uL (3.93-5.22); RDW 13.1 % (11.7-14.6); RDW-SD 45.1 fL; WBC 5.86 10^3/uL (4.4-10.8)
[2023-09-05 09:14] LABS: ALT 22 U/L (14-59); AST 15 U/L (15-37); Albumin 3.8 g/dL (3.4-5.0); Alkaline Phosphatase 70 U/L (46-116); Anion Gap 6.7 mmol/L (3-11); BUN 15 mg/dL (7-18); CO2 28.3 mmol/L (21.0-32.0); CREATININE 0.7 mg/dL (0.55-1.02); Calcium 8.8 mg/dL (8.5-10.1); Chloride 107 mmol/L (98-107); Estimated GFR 95.92 (mL/min/1.73m2); FREE T4 0.94 ng/dL (0.76-1.46); Glucose 103 mg/dL (74-106); Potassium 3.7 mmol/L (3.5-5.1); Sodium 142 mmol/L (136-145); TSH 2.51 uIU/Ml (0.36-3.74); Total Protein 6.8 g/dL (6.4-8.2)
== END 2023-09-13 23:59 | disposition home or self-care (01) ==
LOC: INF 01:17
PROVIDERS: Internal Medicine Hematology & Oncology; Physician Assistant; PCP Physician Assistant Medical; Visit Provider Internal Medicine Medical Oncology
DX: C50.511 Malignant neoplasm of lower-outer quadrant of right female breast (principal); Z17.1 Estrogen receptor negative status [ER-]; E03.2 Hypothyroidism due to medicaments and other exogenous substances; Z79.899 Other long term (current) drug therapy; Z45.2 Encounter for adjustment and management of vascular access device
CPT/HCPCS: 36591; 80053; 82306; 84439; 84443; 85025

== ENCOUNTER 2023-09-18 03:32 | Outpatient (CLI) | payer MEDICARE, MEDICAID, SELFPAY ==
[2023-09-19 17:26] LABS: Rheumatoid Factor <8.6 IU/mL (<12.0)
[2023-09-20 11:49] LABS: Ro60 Ab, IgG <7.0 CU (<20.0); SS-A/Ro, IgG <2.3 CU (<20.0); SS-B (La) Ab, IgG <3.3 CU (<20.0)
[2023-09-20 15:42] LABS: ANA Interpretation Negative (Negative)
== END 2023-09-18 03:33 | disposition home or self-care (01) ==
PROVIDERS: PCP Physician Assistant Medical; Visit Provider Physician Assistant Medical
DX: R68.2 Dry mouth, unspecified (principal)
CPT/HCPCS: 36415; 86038; 86235; 86431

== ENCOUNTER 2023-10-11 01:46 | Outpatient (CLI) | payer MEDICARE, MEDICAID, SELFPAY ==
[2023-10-11] MEDS: Gadoterate meglumine 20 ML SYRINGE IVP (13:18)
--- NOTE | 2023-10-11 13:30 | DI.MRI_ITS ---
Exam(s) MR LUMBAR SPINE WO/W EXAM: MR LUMBAR SPINE WO/W CLINICAL HISTORY: C50.919 Stage II Breast CA Female,M54.50 LBP non specific. TECHNIQUE: Multiplanar multisequence MRI of the Lumbar spine was performed. COMPARISON: MR MRI - LUMBAR SPINE WO CONTRAST from 08/10/[address] ABDOMEN PELVIS W from 10/14/2022 FINDINGS: Conus medullaris is at normal level. There is no evidence of conus mass nor subjacent clumping of in trathecal nerve roots to suggest arachnoiditis. The distal thecal sac appears unremarkable.There is no evidence of Tarlov intrasacral cysts nor other significant findings within the sacral canal Bones:There is a mild bidirectional scoliosis in the lumbar spine. There are no impression fractures nor listhesis. There are no significant intraosseous findings in L2 through the mid sacral level. However, in the L1 vertebral body there are few areas of signal abnormality, 2 of which have the appe arance of probable benign intraosseous hemangiomas. However, in the upper left side of the L1 verteb ral body there is a E slightly different area of signal abnormality measuring 8 by 7 mm which is hypo intense on T1 and exhibits mild enhancement following contrast injection. This may represent a small atypical hemangioma but cannot exclude a small metastatic lesion. When comparing to images of the 2 013 MRI. This, however, appears to exhibit minimal change from the prior study and therefore most pr obably an atypical hemangioma. IV CONTRAST: No abnormal intrathecal enhancement. No abnormal epidural enhancement. With respect to the individual levels... T12-L1: Unremarkable L1-2: Normal disc height and signal. No disc herniation nor central canal stenosis.No foraminal steno sis L2-3: Normal disc height. There is mild annular bulging on both sides extending into the floor of the exiting neural foramina bilaterally, best seen on sagittal images. There is, however, no significan t foraminal stenosis. Also no central canal stenosis.No facet arthropathy L3-4: Normal disc height. No significant disc herniation. There is mild annular bulging in the floo r both exiting neural foramina but no significant foraminal stenosis evident. No significant facet a rthropathy. L4-5: Mild disc space narrowing on the right side of the disc space with mild right-sided annular bul ging but no prominent disc herniation. No central canal stenosis. Annular bulging extends into the floor of the exiting right neural foramen but there is no evidence of significant foraminal stenosis on either side at this level. No significant facet arthropathy. L5-S1: Normal disc height and signal. No evidence of disc herniation or central canal stenosis nor f oraminal stenosis at this level. Facet joints appear unremarkable. Soft tissues: There is 2.5 cm benign cysts noted in the left kidney which does not require further w orkup. IMPRESSION: 1. Mild multilevel disc findings. There is no dominant disc herniation and there is no central spina l canal stenosis. There is some annular bulging into the floor of exiting neural foramina bilaterall y at multiple levels but no evidence of significant foraminal stenosis. 2. There is mild scoliosis in the lumbar spine noted. 3. Heterogeneous marrow signal foci in L1 vertebral body which have the appearance of a few benign in traosseous hemangiomas and 1 other finding which is most probably benign as it appears to have been p resent and exhibits minimal change from prior MRI scan of 2013. 4. No abnormal soft tissue enhancement in the spinal canal nor within the thecal sac. DATA REPOSITORY:
== END 2023-10-11 02:06 ==
LOC: DI 01:46
PROVIDERS: PCP Physician Assistant Medical; Visit Provider Nurse Practitioner Family
DX: M51.37 Other intervertebral disc degeneration, lumbosacral region (principal)
CPT/HCPCS: 72158; 96523

== ENCOUNTER 2023-10-11 02:41 | Outpatient (RCR) | payer MEDICARE, MEDICAID, SELFPAY ==
[2023-09-26] MEDS: Normal Saline Flush 10 ML SYR IVP (08:02)
[2023-09-26 08:36] LABS: Abs Immature Grans 0.01 10^3/uL (0.0-0.06); Absolute Basophil Count 0.04 10^3/uL (0.0-0.2); Absolute Eosinophil Count 0.19 10^3/uL (0.0-0.7); Absolute Lymphocyte Count 0.98 10^3/uL (1.2-3.4); Absolute Monocyte Count 0.53 10^3/uL (0.1-0.8); Absolute Neutrophil Count 3.79 10^3/uL (1.2-6.7); Basophils % 0.7 %; Eosinophils % 3.4 %; HCT 39.9 % (36.0-46.0); HGB 12.9 g/dL (11.2-15.7); Immature Grans % 0.2 %; Lymphocytes % 17.7 %; MCH 30.6 pg (27.0-33.0); MCHC 32.3 % (32.0-36.0); MCV 95 fL (80-95); Monocytes % 9.6 %; Neutrophils % 68.4 %; Platelet Count 226 10^3/uL (130-400); RBC 4.21 10^6/uL (3.93-5.22); RDW 13.1 % (11.7-14.6); RDW-SD 45.7 fL; WBC 5.54 10^3/uL (4.4-10.8)
[2023-09-26 08:58] LABS: ALT 19 U/L (14-59); AST 14 U/L (15-37); Albumin 3.9 g/dL (3.4-5.0); Alkaline Phosphatase 61 U/L (46-116); Anion Gap 8.1 mmol/L (3-11); BUN 11 mg/dL (7-18); Bilirubin, Total 0.31 mg/dL (0.2-1.0); CO2 27.9 mmol/L (21.0-32.0); CREATININE 0.6 mg/dL (0.55-1.02); Calcium 9.4 mg/dL (8.5-10.1); Chloride 107 mmol/L (98-107); Estimated GFR 99.55 (mL/min/1.73m2); FREE T4 0.99 ng/dL (0.76-1.46); Glucose 98 mg/dL (74-106); Potassium 3.9 mmol/L (3.5-5.1); Sodium 143 mmol/L (136-145); TSH 2.16 uIU/Ml (0.36-3.74); Total Protein 6.8 g/dL (6.4-8.2)
[2023-10-11] MEDS: Normal Saline Flush 10 ML SYR IVP (12:08)
== END 2023-10-14 23:59 | disposition home or self-care (01) ==
LOC: INF 02:41
PROVIDERS: Physician Assistant; PCP Physician Assistant Medical; Visit Provider Internal Medicine Medical Oncology
DX: C50.511 Malignant neoplasm of lower-outer quadrant of right female breast (principal); Z17.1 Estrogen receptor negative status [ER-]; E03.2 Hypothyroidism due to medicaments and other exogenous substances; Z92.89 Personal history of other medical treatment; Z45.2 Encounter for adjustment and management of vascular access device
CPT/HCPCS: 36591; 80053; 96523; 84439; 84443; 85025

== ENCOUNTER 2023-10-19 02:33 | Outpatient (CLI) | payer MEDICARE, MEDICAID, SELFPAY ==
--- NOTE | 2023-10-19 | DI.MRI_ITS ---
Exam(s) MR ABDOMEN WO/W EXAM: MR ABDOMEN WO/W CLINICAL HISTORY: BREAST CANCER C50.919 LOW BACK PAIN M54.50, CHARACTERIZE LIVER LESION TECHNIQUE: Multiplanar multisequence MRI of the Abdomen was performed. CONTRAST MATERIAL: IV Contrast: 8 mL of Dotarem contrast administered. COMPARISON: CT CT ABDOMEN PELVIS W from 10/14/2022 MR MR LUMBAR SPINE WO/W from 10/11/2023 FINDINGS: Lung bases: Unremarkable. Liver: There is a 4 mm lesion in the posterior segment of the right lobe of the liver which is mildly hyperintense on the T2 weighted images. It is hypointense on the T1 weighted images. On the postco ntrast images there is mild enhancement peripherally. The enhancement is not as bright as the aorta. The delayed images show complete enhancement. The lesion is small and indeterminate. Pancreas: Unremarkable. Gallbladder and Bile Ducts: No cholelithiasis. No biliary ductal dilatation. Adrenals: Unremarkable. Kidneys: There is a simple 2.3 x 2.4 cm cyst in the left kidney. No follow-up is recommended. No so lid renal mass. Spleen: Unremarkable. Bowel: The bowel shows no evidence of wall thickening or obstruction. Aorta: Unremarkable. Soft Tissues: Unremarkable. Bone: There is a mild left convex lumbar scoliosis. Lymph Nodes: Unremarkable. IMPRESSION: 1. Indeterminate 4 mm lesion in the posterior segment of the right lobe of the liver. 6 month follow -up MRI is recommended for re-evaluation. 2. Simple left renal cyst. No follow-up is recommended. DATA REPOSITORY:
[2023-10-19] MEDS: Normal Saline - Diluent 50 ML VIAL 25 ML IJ (09:48)
[2023-10-19] MEDS: Gadoterate meglumine 20 ML VIAL 8 ML IVP (09:50)
== END 2023-10-19 02:53 ==
LOC: DI 02:33
PROVIDERS: PCP Physician Assistant Medical; Visit Provider Nurse Practitioner Family
DX: K76.89 Other specified diseases of liver (principal); C50.912 Malignant neoplasm of unspecified site of left female breast
CPT/HCPCS: 74183; 96523

== ENCOUNTER 2023-10-19 02:53 | Outpatient (RCR) | payer MEDICARE, MEDICAID, SELFPAY ==
[2023-10-19] MEDS: Normal Saline Flush 10 ML SYR IVP (09:17)
== END 2023-11-13 23:59 | disposition home or self-care (01) ==
LOC: INF 02:53
PROVIDERS: PCP Physician Assistant Medical; Visit Provider Internal Medicine Medical Oncology
DX: Z45.2 Encounter for adjustment and management of vascular access device (principal)
CPT/HCPCS: 96523

== ENCOUNTER 2024-02-28 12:43 | Outpatient (CLI) | payer MEDICARE, MEDICAID, SELFPAY ==
--- NOTE | 2024-02-28 14:50 | DI.RAD_ITS ---
Exam(s) XR LUMBAR SPINE COMPLETE EXAM: XR LUMBAR SPINE COMPLETE CLINICAL HISTORY: ACUTE LOW BACK PAIN, M54.50. TECHNIQUE: 2D digital imaging was performed of the lumbar spine. Five images were obtained. AP, la teral, right oblique, left oblique and L5-S1 spot views were obtained. COMPARISON: CR XR LUMBAR SPINE COMPLETE from 08/13/2021 FINDINGS: BONES: No fracture or destructive lesion. There are endplate osteophytes seen at several levels of th e lumbar spine. No facet hypertrophy identified. DISKS: Intervertebral disc spaces are maintained. ALIGNMENT: There is a right convex scoliosis centered at the thoracolumbar junction. No spondylolysi s or spondylolisthesis. SOFT TISSUE: Atherosclerotic calcification is present. IMPRESSION: There are degenerative changes seen in the lumbar spine. Right convex lumbar scoliosis. DATA REPOSITORY: RADIATION DOSE DELIVERED:
== END 2024-02-28 13:03 ==
LOC: DI 12:43
PROVIDERS: PCP Physician Assistant Medical; Visit Provider Physician Assistant Medical
DX: M51.26 Other intervertebral disc displacement, lumbar region (principal)
CPT/HCPCS: 72110

== ENCOUNTER 2024-06-21 01:31 | Outpatient (CLI) | payer MEDICARE, MEDICAID, SELFPAY ==
[2024-06-21 13:39] LABS: Abs Immature Grans 0.03 10^3/uL (0.0-0.06); Absolute Basophil Count 0.03 10^3/uL (0.0-0.2); Absolute Eosinophil Count 0.17 10^3/uL (0.0-0.7); Absolute Lymphocyte Count 1.32 10^3/uL (1.2-3.4); Absolute Monocyte Count 0.44 10^3/uL (0.1-0.8); Absolute Neutrophil Count 4.78 10^3/uL (1.2-6.7); Basophils % 0.4 %; Eosinophils % 2.5 %; HCT 41.5 % (36.0-46.0); HGB 13.4 g/dL (11.2-15.7); Immature Grans % 0.4 %; Lymphocytes % 19.5 %; MCH 29.6 pg (27.0-33.0); MCHC 32.3 % (32.0-36.0); MCV 92 fL (80-95); MPV 9.1 fL (8.0-11.0); Monocytes % 6.5 %; Neutrophils % 70.7 %; Platelet Count 263 10^3/uL (130-400); RBC 4.52 10^6/uL (3.93-5.22); RDW-SD 47.2 fL; WBC 6.77 10^3/uL (4.4-10.8)
[2024-06-21 14:44] LABS: ALT 19 U/L (14-59); AST 14 U/L (15-37); Albumin 4.2 g/dL (3.4-5.0); Alkaline Phosphatase 77 U/L (46-116); Anion Gap 7.5 mmol/L (3-11); BUN 18 mg/dL (7-18); Bilirubin, Total 0.3 mg/dL (0.2-1.0); CO2 30.5 mmol/L (21.0-32.0); CREATININE 0.6 mg/dL (0.55-1.02); Calcium 9.2 mg/dL (8.5-10.1); Chloride 102 mmol/L (98-107); Estimated GFR 98.93 (mL/min/1.73m2); Glucose 89 mg/dL (74-106); Potassium 3.4 mmol/L (3.5-5.1); Sodium 140 mmol/L (136-145); Total Protein 7.5 g/dL (6.4-8.2); Vitamin D 25 Total 42 ng/mL (30-100)
[2024-06-21 22:46] LABS: CEA 2.2 ng/mL (See Note)
[2024-06-25 11:50] LABS: Cancer Ag 15-3 10 U/mL (<30)
== END 2024-06-21 01:32 | disposition home or self-care (01) ==
PROVIDERS: PCP Physician Assistant Medical; Visit Provider Nurse Practitioner Family
DX: M85.9 Disorder of bone density and structure, unspecified (principal); C50.511 Malignant neoplasm of lower-outer quadrant of right female breast; Z17.1 Estrogen receptor negative status [ER-]
CPT/HCPCS: 36415; 80053; 82306; 86300; 82378; 85025

== ENCOUNTER 2024-07-04 02:30 | Outpatient (CLI) | payer MEDICARE, MEDICAID, SELFPAY ==
--- NOTE | 2024-07-04 | DI.MRI_ITS ---
Exam(s) MR BRAIN WO EXAM: MR BRAIN WO CLINICAL HISTORY: New daily persistent SAMPSON, G44.52; malignant neoplasm of lower outer quadrant of th e right breast. TECHNIQUE: Multiplanar multisequence MRI of the brain was performed. COMPARISON: No exams were available for comparison FINDINGS: VENTRICLES AND EXTRA AXIAL SPACES: Normal in size and morphology for the patient's age. MIDLINE SHIFT: None. CEREBRAL PARENCHYMA: No focus of restricted diffusion to suggest acute infarct. No space-occupying le tammy identified. Mild atrophy consistent with the patient's age. There are several foci high signal i n the white matter some of which are adjacent to the ventricles. Also abnormal high signal foci in th e in both cerebellar hemispheres. Findings do not have the typical appearance of usual small-vessel c hanges. Findings could represent demyelinating disease. No contrast was administered and metastatic d isease is not excluded. BRAINSTEM/CEREBELLUM: Normal. VISUALIZED PARANASAL SINUSES: Clear. MASTOIDS:Clear. Vasculature: Normal flow void. PITUITARY GLAND: Unremarkable. ORBITS: Unremarkable. IMPRESSION: Abnormal high signal foci in the cerebral and cerebellar hemispheres. Findings could represent demyel inating disease versus metastatic disease. Further contrast enhanced imaging recommended. Unexpected findings Additional imaging needed DATA REPOSITORY:
== END 2024-07-04 02:50 ==
LOC: DI 02:31
PROVIDERS: PCP Physician Assistant Medical; Visit Provider Nurse Practitioner Family
DX: G44.52 New daily persistent headache (NDPH) (principal); R93.0 Abnormal findings on diagnostic imaging of skull and head, not elsewhere classified
CPT/HCPCS: 70551

== ENCOUNTER 2024-08-14 02:23 | Outpatient (CLI) | payer MEDICARE, MEDICAID, SELFPAY ==
--- NOTE | 2024-08-14 | DI.US_ITS ---
Exam(s) US BREAST RT COMPLETE EXAM: US BREAST RT COMPLETE CLINICAL HISTORY: H/O BILAT MASTECTOMY,PEA SIZED SUBDERMAL,? CYSTIC LESION LAT RT TECHNIQUE: The area of palpable abnormality was scanned with a linear high- resolution transducer without and with standoff pad. COMPARISON: No exams were available for comparison FINDINGS: No solid or cystic masses, hypoechoic foci, areas of abnormal shadowing, or areas of skin thickening. IMPRESSION: No sonographically suspicious finding. Given the patient's history, biopsy could be considered of the palpable abnormality. BI-RADS Category 1 - Negative DATA REPOSITORY:
== END 2024-08-14 02:43 ==
LOC: DI 02:23
PROVIDERS: PCP Physician Assistant Medical; Visit Provider Physician Assistant Medical
DX: N63.11 Unspecified lump in the right breast, upper outer quadrant (principal)
CPT/HCPCS: 76642

== ENCOUNTER → 2024-08-30 10:22 | Outpatient (BNVA) | payer MEDICARE, MEDICAID, SELFPAY | PROVIDERS: PCP Physician Assistant Medical; Referring Provider Physician Assistant Medical; Visit Provider Surgery | DX: R22.2 Localized swelling, mass and lump, trunk (principal); Z85.3 Personal history of malignant neoplasm of breast | CPT/HCPCS: 11104 ==

== ENCOUNTER 2024-08-30 11:13 | Outpatient (REF) | payer MEDICARE, MEDICAID, SELFPAY ==
--- NOTE | 2024-08-30 11:00 | SKI_PTH ---
PATIENT: Brielle Mcduffie LOC: [facility] U#:[id number] AGE/SX: 68/F ROOM: RE08/30/[address]: Suzie Ocampo MD : 1955 BED: DIS: 08/30/2024 SPEC #: [id number] RECD: 08/30/24 16:12 STATUS: TATUM REAnisha #: [id number] BIANCA: 08/30/24 11:[address]: Suzie Ocampo DEPT: Surgical Specimen RECD BY: Queenie Falcon ENTERED: 08/30/24 16:23 SP TYPE: LUIS F YANG DR: Stefany Moreno Tissues: 1 - SKIN BIOPSY(SHAVE/PUNCH) Procedures: SKIN LEVEL 4 Comments: [id number]
== END 2024-08-30 11:14 | disposition home or self-care (01) ==
LOC: LBN 11:13
PROVIDERS: PCP Physician Assistant Medical; Visit Provider Surgery
DX: C50.911 Malignant neoplasm of unspecified site of right female breast (principal)
CPT/HCPCS: 88305; 88309

== ENCOUNTER → 2024-09-06 11:36 | Outpatient (BNVA) | payer MEDICARE, MEDICAID, SELFPAY | PROVIDERS: PCP Physician Assistant Medical; Referring Provider Physician Assistant Medical; Visit Provider Surgery | DX: D24.1 Benign neoplasm of right breast (principal) | CPT/HCPCS: 99213 ==

== ENCOUNTER → 2024-10-09 14:29 | Outpatient (BNVA) | payer MEDICARE, MEDICAID, SELFPAY | PROVIDERS: PCP Physician Assistant Medical; Referring Provider Physician Assistant Medical; Visit Provider Surgery ==

== ENCOUNTER → 2024-11-06 12:50 | Outpatient (BNVA) | payer MEDICARE, MEDICAID, SELFPAY | PROVIDERS: PCP Physician Assistant Medical; Referring Provider Physician Assistant Medical; Visit Provider Surgery | DX: R22.2 Localized swelling, mass and lump, trunk (principal); L90.5 Scar conditions and fibrosis of skin | CPT/HCPCS: 11401 ==

== ENCOUNTER 2024-11-06 13:06 | Outpatient (REF) | payer MEDICARE, MEDICAID, SELFPAY ==
--- NOTE | 2024-11-06 13:15 | SKI_PTH ---
PATIENT: Brielle Mcduffie LOC: [facility] U#:[id number] AGE/SX: 69/F ROOM: RE11/06/[address]: Suzie Ocampo MD : 1955 BED: DIS: 11/06/2024 SPEC #: [id number] RECD: 11/06/24 15:51 STATUS: TATUM GARCIA #: [id number] BIANCA: 11/06/24 13:[address]: Suzie Ocampo DEPT: Surgical Specimen RECD BY: Iqra Gann ENTERED: 11/06/24 15:52 SP TYPE: LUIS F YANG DR: Stefany Moreno Tissues: 1 - SKIN BIOPSY(SHAVE/PUNCH) Procedures: GROSS AND MICRO LEVEL 4 IMMUNOPEROXIDASE STAIN Comments: [id number]
== END 2024-11-06 13:07 | disposition home or self-care (01) ==
LOC: LBN 13:06
PROVIDERS: PCP Physician Assistant Medical; Referring Provider Surgery; Visit Provider Surgery
DX: L90.5 Scar conditions and fibrosis of skin (principal)
CPT/HCPCS: 88305; 88361

== ENCOUNTER 2024-11-20 02:04 | Outpatient (CLI) | payer MEDICARE, MEDICAID, SELFPAY ==
--- NOTE | 2024-11-20 | DI.NM_ITS ---
Exam(s) NM BONE SCAN WHOLE BODY GRP EXAM: NM BONE SCAN WHOLE BODY GRP CLINICAL HISTORY: PAIN LEFT HIP M25.552 H/O BREAST CA TX'D W/SURGERY SYSTEMIC TX XRT PAIN 1. TECHNIQUE: Injected Dose: 25 mCi Tc-99m MDP Delayed Images: 2-3 hours. COMPARISON: CT CT ABDOMEN PELVIS W from 10/14/2022 FINDINGS: There is no abnormal skeletal uptake which would suggest metastatic disease in the hips nor elsewhere in the pelvis nor elsewhere in the lower extremities. There is no abnormal uptake seen in the spinal column in the skull nor in the rib cages. There is a small focus of increased osseous uptake in the upper 3rd of the right humerus, possibly significant. There is more intense focal uptake seen in the right hand-wrist at the 1st carpometacarpal joint level. This is most probably degenerative; less likely metastatic. IMPRESSION: 1. No evidence of osseous metastatic disease in the pelvis and hips. 2. There is a small focus of increased radiopharmaceutical uptake in the upper 3rd of a right humerus. This may be significant such as metastatic, given the history here. Recommend plain films of the right humerus. DATA REPOSITORY:
== END 2024-11-20 02:24 ==
LOC: DI 02:04
PROVIDERS: PCP Physician Assistant Medical; Visit Provider Radiology Radiation Oncology
DX: M25.552 Pain in left hip (principal); R93.89 Abnormal findings on diagnostic imaging of other specified body structures
CPT/HCPCS: 78306

== ENCOUNTER 2024-11-27 00:17 | Outpatient (CLI) | payer MEDICARE, MEDICAID, SELFPAY ==
--- NOTE | 2024-11-27 14:40 | DI.RAD_ITS ---
Exam(s) XR HUMERUS RT EXAM: XR HUMERUS RT CLINICAL HISTORY: H/O BREAST CA,BONE SCAN SHOWS UPTAKE,S/P RADIOTHERAPY,Z92.3. TECHNIQUE: 2D digital imaging was performed. COMPARISON: [facility] BONE SCAN WHOLE BODY GRP from 11/20/2024 FINDINGS: BONES: No acute fracture is present. No bony destructive lesion is seen. There is a suture anchor in the proximal humeral shaft related to prior surgery. This corresponds to the small focus of increased activity seen on bone scan. There is been prior resection of the distal clavicle. Visualized portion of elbow and shoulder joints are unremarkable. SOFT TISSUE: Normal. IMPRESSION: Small focus of increased activity on bone scan corresponds to region of a suture anchor in the proximal humeral shaft. No suspicious bony lesions are identified. DATA REPOSITORY: RADIATION DOSE DELIVERED:
== END 2024-11-27 00:37 ==
LOC: DI 00:17
PROVIDERS: PCP Physician Assistant Medical; Visit Provider Radiology Radiation Oncology
DX: Z92.3 Personal history of irradiation (principal)
CPT/HCPCS: 73060

== ENCOUNTER → 2025-01-02 06:21 | Outpatient (CLI) | payer MEDICARE, MEDICAID, SELFPAY ==
--- NOTE | 2025-01-02 11:00 | DI.MRI_ITS ---
Exam(s) MR ABDOMEN WO/W EXAM: MR ABDOMEN WO/W CLINICAL HISTORY: ABNL FINDINGS ON DIAGNOSTIC IMAGING ABDOMINAL REGIONS TECHNIQUE: Multiplanar multisequence MRI of the Abdomen was performed. CONTRAST MATERIAL: IV Contrast: 8 mL of Dotarem contrast administered. COMPARISON: CT CT CHEST PE CTA from 01/30/[address] CHEST PE CTA from 02/05/[address] ABDOMEN PELVIS W from 10/14/2022 MR MR LUMBAR SPINE WO/W from 10/11/2023 MR MR ABDOMEN WO/W from 10/19/2023 FINDINGS: Lung bases: Unremarkable. Liver: The exam is limited by motion and thick slice thickness. There is a tiny hypodensity barely visible at the posterior right lobe of the liver near the diaphragm. This is better seen on CT scan from 2022 where it has the appearance consistent with a simple cyst. It measures 3.5 millimeters. Pancreas: Unremarkable. Gallbladder and Bile Ducts: Unremarkable. Adrenals: Unremarkable. Kidneys: Unremarkable. Spleen: Unremarkable. Aorta: Unremarkable. Soft Tissues: Unremarkable. Bone: Unremarkable. Lymph Nodes: Unremarkable. Stomach and bowel: Unremarkable. Peritoneal cavity: Unremarkable. No evidence of ascites. IMPRESSION: Due to the small size location near the diaphragm the liver lesion is not well characterized but was present on 2022 CT abdomen which has the appearance of a benign cyst. DATA REPOSITORY:
[2025-01-02] MEDS: Gadoterate meglumine 20 ML VIAL IVP (11:06)
[2025-01-02] MEDS: Normal Saline - Diluent 50 ML VIAL IJ (11:07)
== END ==
LOC: DI 06:21
PROVIDERS: PCP Physician Assistant Medical; Visit Provider Physician Assistant Medical
DX: R93.5 Abnormal findings on diagnostic imaging of other abdominal regions, including retroperitoneum (principal)
CPT/HCPCS: 74183

== ENCOUNTER → 2025-01-03 02:43 | Outpatient (CLI) | payer MEDICARE, MEDICAID, SELFPAY ==
--- NOTE | 2025-01-03 | DI.MRI_ITS ---
Exam(s) MR BRAIN WO/W EXAM: MR BRAIN WO/W CLINICAL HISTORY: R90.89 High signal foci in cerebral and cerebettar hemisperes. TECHNIQUE: Multiplanar multisequence MRI of the brain was performed. CONTRAST MATERIAL: IV Contrast: 8 ML of Dotarem contrast administered. COMPARISON: MR MR BRAIN WO from 07/04/2024 FINDINGS: VENTRICLES AND EXTRA AXIAL SPACES: Normal in size and morphology for the patient's age. HEMORRHAGE: None. CEREBRAL PARENCHYMA: No focus of restricted diffusion to suggest acute infarct. No space-occupying lesion identified. There stable appearance of the previously noted abnormal white matter lesions, some of which are in a periventricular location. No associated enhancement. Mild atrophy. BRAINSTEM/CEREBELLUM: Normal. CALVARIUM: Normal. ENHANCEMENT: No suspicious enhancement identified. VISUALIZED PARANASAL SINUSES/MASTOIDS: Mucosal thickening at the floor of the left maxillary sinus. Orbits: Unremarkable. Pituitary: Not enlarged. Vasculature: Normal flow voids. IMPRESSION: Stable abnormal high signal foci in the white matter without associated enhancement. Microvascular changes versus demyelinating process. DATA REPOSITORY:
[2025-01-03] MEDS: Gadoterate meglumine 20 ML SYRINGE IVP (10:02)
[2025-01-03] MEDS: Normal Saline Flush 10 ML SYR IVP (10:03)
== END ==
LOC: DI 02:44
PROVIDERS: PCP Physician Assistant Medical; Visit Provider Physician Assistant Medical
DX: R90.89 Other abnormal findings on diagnostic imaging of central nervous system (principal)
CPT/HCPCS: 70553

== ENCOUNTER 2025-02-12 15:44 | Outpatient (REF) | payer MEDICARE, MEDICAID, SELFPAY ==
[2025-02-12 20:40] LABS: Cholesterol 251 mg/dL (<200); HDL Cholesterol 95 mg/dL (>or=50)
[2025-02-12 20:55] LABS: Hemoglobin A1C 5.3 % (<5.7)
== END 2025-02-12 15:45 | disposition home or self-care (01) ==
LOC: NCHCN 15:44
PROVIDERS: PCP Physician Assistant Medical; Visit Provider Physician Assistant Medical
DX: Z13.1 Encounter for screening for diabetes mellitus (principal); Z13.220 Encounter for screening for lipoid disorders
CPT/HCPCS: 80061; 83036